=== PATIENT | female | born 1985 | race Caucasian/White ===

== ENCOUNTER → 2019-09-17 06:41 | Outpatient (CLI) | payer OTHER, SELFPAY ==
--- NOTE | 2019-09-17 06:45 | CT_ITS ---
STUDY: CT MAXILLOFACIAL SINUSES REASON FOR EXAM: Female, 33 years old. SINUSITIS X 2 MONTHS RADIATION DOSAGE (If Supplied By Facility): CTDIvol = ( 33.06 ) mGy, DLP = ( 693.36 ) mGycm TECHNIQUE: The patient was scanned in a multi detector CT scanner. High resolution axial imaging was performed without the administration of intravenous contrast material. Sagittal and coronal images were reconstructed. Individualized dose optimization techniques were used for this CT. COMPARISON: None. FINDINGS: FRONTAL SINUSES: Hypoplastic right frontal sinus, without mucosal inflammatory disease. ETHMOIDAL SINUSES: Normal aeration, without mucosal inflammatory disease. MAXILLARY SINUSES: There is mild mucosal thickening in the bilateral maxillary sinuses suggesting chronic sinusitis. SPHENOIDAL SINUSES: There is a mucosal retention cyst in the sphenoid sinus on the right side measures 1 cm in greatest diameter. There is patency of the bilateral maxillary infundibuli with normal uncinate processes, ethmoid bullae, and hiatus semilunaris. Normal bilateral middle turbinates. Normal bilateral inferior turbinates. Normal midline nasal septum. There is patency of the bilateral nasal airways. The visualized osseous structures are normal. The visualized bilateral orbital contents are normal. CT/Sinus/Facial Bone IMPRESSION: There is mild mucosal thickening in the bilateral maxillary sinuses suggesting chronic sinusitis. There is a mucosal retention cyst in the sphenoid sinus on the right side measures 1 cm in greatest diameter. Electronically Signed: Carlos Paulino, at 8:23 EST Tel , Service support ,
== END ==
PROVIDERS: Family Provider Internal Medicine; PCP Internal Medicine; Referring Provider Otolaryngology; Visit Provider Otolaryngology
DX: J32.9 Chronic sinusitis, unspecified (principal)
CPT/HCPCS: 70486

== ENCOUNTER → 2020-07-22 07:06 | Outpatient (CLI) | payer OTHER, SELFPAY ==
--- NOTE | 2020-07-22 07:07 | BI_ITS ---
MAMMOGRAPHY - BILATERAL SCREENING REASON FOR EXAM: Female, 34 years old. Routine annual screening examination. PERTINENT HISTORY: Mother with breast cancer. Grandmother with breast cancer. TECHNIQUE: Digital bilateral breast cristhian (3D mammographic acquisition) in the CC and MLO projections. 2-D mediolateral oblique (MLO) and craniocaudad (CC) views of both breasts were obtained. CAD: Full Field Digital Mammography with Computer Added Detection was performed. COMPARISON: None. Baseline examination. FINDINGS: Breast Composition: There are scattered areas of fibroglandular density. There are no dominant masses or suspicious calcifications. There is an 8 mm x 7.4 mm well-defined nodule in the deep central medial aspect of the left breast. Correlation with ultrasound is recommended. No other significant abnormalities are identified. BI/SCREEN MAMM (CAD) W/CRISTHIAN BILAT IMPRESSION: 8 mm x 7.4 mm well-defined nodule in the deep central medial aspect of the left breast. Correlation with ultrasound is recommended. ASSESSMENT CATEGORY: BIRADS Category 0: Incomplete. Need additional imaging evaluation. A letter regarding these results will be sent to the patient by the facility within 30 days. Approximately 10% of breast cancers are not detected by mammography. A normal mammogram should not delay biopsy of a clinically suspicious abnormality. [id number] Electronically Signed: Rigoberto Mahan, at 10:02 EST , Service support ,
== END ==
PROVIDERS: PCP Internal Medicine; Referring Provider Internal Medicine; Visit Provider Internal Medicine
DX: Z12.31 Encounter for screening mammogram for malignant neoplasm of breast (principal); N63.25 Unspecified lump in the left breast, overlapping quadrants; Z80.3 Family history of malignant neoplasm of breast
CPT/HCPCS: 77063; 77067

== ENCOUNTER → 2020-07-28 08:13 | Outpatient (CLI) | payer OTHER, SELFPAY ==
--- NOTE | 2020-07-28 08:15 | US_ITS ---
STUDY: ULTRASOUND BREAST - LEFT REASON FOR EXAM: Female, 34 years old. TECHNIQUE: Axial and longitudinal images of the LEFT breast were performed with a high resolution ultrasound transducer. # OF IMAGES: 61 COMPARISON: Previous mammogram obtained on 07/22/2020 FINDINGS: LEFT Breast: There is a lesion in the inferior medial quadrant. The lesion measures 0.4 x 0.2 cm in size. Clock notation: 6 o''clock position. Distance from nipple: 3 cm. Posterior Enhancement: Yes Posterior Shadowing: Yes Margins: Smooth Echogenicity: Hypoechoic US/Breast Limited Unilateral IMPRESSION: This nodular density appears to represent an intramammary lymph node. ASSESSMENT CATEGORY: BIRADS Category 2: Benign. A letter regarding these results will be sent to the patient by the facility within 30 days. Electronically Signed: Scott Richardson, at 9:18 EST Tel , Service support ,
== END ==
PROVIDERS: PCP Internal Medicine; Referring Provider Internal Medicine; Visit Provider Internal Medicine
DX: R92.2 Inconclusive mammogram (principal)
CPT/HCPCS: 76642

== ENCOUNTER → 2021-06-30 09:29 | Outpatient (CLI) | payer OTHER, SELFPAY ==
[2021-07-07 15:29] LABS: HPV APTIMA, High Risk Positive (Negative)
== END ==
PROVIDERS: PCP Internal Medicine; Visit Provider Student in an Organized Health Care Education/Training Program
DX: Z12.4 Encounter for screening for malignant neoplasm of cervix (principal)
CPT/HCPCS: 87624; 88175; G0145

== ENCOUNTER → 2021-07-25 | Outpatient (CLI) | payer OTHER, SELFPAY ==
--- NOTE | 2021-07-25 | CER_PTH ---
PATIENT: POLLO DAIGLE LOC: [facility]#:[id number] AGE/SX: 35/F ROOM: RE07/25/[address]: Dr. Radha Howe DO : 1985 BED: DIS: 07/25/2021 SPEC #: [id number] RECD: 07/25/21 17:30 STATUS: ERIC RETati #: [id number] LINDA: 07/25/21 00:[address]: Radha Howe DEPT: SURGICAL PATHOLOGY RECD BY: Curtis Andino ENTERED: 07/26/21 09:23 SP TYPE: CERV OTHR DR: Dr. Cleo Joseph, Tissues: A - Uterine cervix, NOS B - Endocervical Procedures: Surgery Specimen Level IV HEADER OPERATION: Colposcopy PRE-OP DIAGNOSIS: ASCUS, HPV positive TISSUE SUBMITTED: A ? Cervical biopsy 11 o?clock, B - ECC MICROSCOPIC DIAGNOSIS A. Cervix at 11 o?clock, biopsy: Focal minimal changes consistent with HPV cytopathic effects. Moderate acute and chronic inflammation. See comment, B. ECC: Fragments of endocervical mucosa with acute and chronic inflammation, blood and mucous. Negative for dysplasia. SJ 07/27/21 COMMENT Immunohistochemistry ([id number]) for surrogate HPV marker (p16) supports the above diagnosis. Case has been reviewed in consultation with Dr. Soto who concurs with the above diagnosis. IDC:AM MICROSCOPIC DESCRIPTION Slides are reviewed. GROSS DESCRIPTION A - Received in fixative is one container labeled with the patient's name and designated cervical biopsy 11 o'clock. The specimen consists of multiple irregular fragments of light pak soft tissue that in aggregate measure 0.6 x 0.2 x 0.1 cm. The specimen is totally submitted in one cassette. B - Received in fixative is one container labeled with the patient's name and designated ECC. The specimen consists of multiple irregular fragments of pak mucoid tissue that in aggregate measure 2.5 x 2 x 0.2 cm. The specimen is totally submitted in one cassette. / RULA:adrian 07/26/2021 TC:5 CPT: 13248 x2
--- NOTE | 2021-07-25 | IMM_PTH ---
PATIENT: POLLO DAIGLE LOC: [facility] U#:[id number] AGE/SX: 35/F ROOM: RE07/25/[address]: Dr. Radha oHwe DO : 1985 BED: DIS: 07/25/2021 SPEC #: [id number] RECD: 07/27/21 12:40 STATUS: ERIC REQ #: [id number] LINDA: 07/25/21 00:[address]: Radha Howe DEPT: IMMUNOHISTOCHEMISTRY RECD BY: Valente Eastman ENTERED: 07/27/21 12:41 SP TYPE: IMMUNO OTHR DR: Dr. Cleo Joseph, Tissues: Uterine cervix, NOS Procedures: p16 (initial) KI-67 (add) PHYSICIAN & INSTITUTION [place] [id number] SPECIMEN INFORMATION: Tissue Source: Cervical biopsy Clinical Info: ASCUS, HPV positive Specimen Number: [id number] CPT code: 69944, 96995 x1 METHODOLOGY: Deparaffinized sections of prefer/formalin-fixed tissue or PAP/DQ stained slides are incubated with monoclonal/polyclonal antibodies/oligonucleotide probes. Localization is made via biotin free immunoperoxidase method. Appropriate controls are performed and reacted as expected. Results on target cell population are indicated in the following table: RESULTS: ANTIBODY / CLONE RESULT P16 (E6H4) positive, focal and patchy Ki-67 (30-9) positive, low These tests were developed and their performance characteristics determined by [facility]. They may not have been cleared or approved by the U.S. Food and Drug Administration. The FDA has determined that such clearance or approval is not necessary. The above immunohistochemical/dualISH markers are ordered and reviewed by the Pathologist. INTERPRETATION: Cervix, 11 o?clock, biopsy: Focal changes consistent with HPV cytopathic effects. SJ:lourdes 07/29/21
== END | disposition home or self-care (01) ==
LOC: LABSPEC 16:49
PROVIDERS: PCP Internal Medicine; Visit Provider Student in an Organized Health Care Education/Training Program
DX: R87.610 Atypical squamous cells of undetermined significance on cytologic smear of cervix (ASC-US) (principal)
CPT/HCPCS: 88305; 88341; 88342

== ENCOUNTER → 2022-07-05 | Outpatient (CLI) | payer OTHER, SELFPAY ==
[2022-07-11 16:28] LABS: HPV APTIMA, High Risk Negative (Negative)
== END | disposition home or self-care (01) ==
LOC: LABSPEC 10:20
PROVIDERS: PCP Internal Medicine; Visit Provider Student in an Organized Health Care Education/Training Program
DX: Z12.4 Encounter for screening for malignant neoplasm of cervix (principal)
CPT/HCPCS: 87624; 88175; G0145

== ENCOUNTER → 2023-02-07 | Outpatient (CLI) | payer OTHER, SELFPAY ==
--- NOTE | 2023-02-07 07:21 | BI_ITS ---
MAMMOGRAPHY - BILATERAL SCREENING REASON FOR EXAM: Female, 37 years old. Routine annual screening examination. PERTINENT HISTORY: Mother with breast cancer. Grandmother with breast cancer. TECHNIQUE: Digital bilateral breast cristhian (3D mammographic acquisition) in the CC and MLO projections. 2-D mediolateral oblique (MLO) and craniocaudad (CC) views of both breasts were obtained. CAD: Full Field Digital Mammography with Computer Added Detection was performed. COMPARISON: Comparison is made with prior study July 22, 2020. FINDINGS: Breast Composition: There are scattered areas of fibroglandular density. There are no dominant masses or suspicious calcifications. Since prior study, there has been a decrease in size of the well-defined nodule in the deep central medial aspect of the left breast. It presently measures 6.5 mm x 4.4 mm. No other significant abnormalities are identified. There has been no significant change since the prior study. BI/SCRN MAMM (CAD)W/CRISTHIAN BILAT IMPRESSION: Stable bilateral screening mammogram. Yearly follow-up mammogram recommended. (A) ASSESSMENT CATEGORY: BIRADS Category 2: Benign. A letter regarding these results will be sent to the patient by the facility within 30 days. Approximately 10% of breast cancers are not detected by mammography. A normal mammogram should not delay biopsy of a clinically suspicious abnormality. [id number] Electronically Signed: Rigoberto Mahan MD at 9:18 EDT ,
== END | disposition home or self-care (01) ==
LOC: OPBI 07:18
PROVIDERS: PCP Internal Medicine; Referring Provider Internal Medicine; Visit Provider Internal Medicine
DX: Z12.31 Encounter for screening mammogram for malignant neoplasm of breast (principal); Z80.3 Family history of malignant neoplasm of breast
CPT/HCPCS: 77063; 77067

== ENCOUNTER → 2024-11-05 | Outpatient (CLI) | payer OTHER, SELFPAY ==
--- NOTE | 2024-11-05 07:31 | US_ITS ---
PROCEDURE: ABD LIMITED W/ ELASTOGRAPHY REASON FOR EXAM: Abnormal liver enzymes. COMPARISON: None. TECHNIQUE: Right upper quadrant abdominal ultrasound. Syed ElastQ Imaging shear wave elastography for non-invasive assessment of liver tissue stiffness. Syed EPIQ Elite. FINDINGS: LIVER: Size: Unremarkable Length: 15.9 cm Echotexture: Diffusely echogenic suggesting fatty infiltration Contour: Normal Lesions: Multiple hypoechoic solid nodules are seen throughout. The largest measures 4.7 cm 4.1 cm 3.5 cm. Metastatic disease should be ruled out. Elastography: EQI Med: 8.4 kPa EQI Med Anthony: 1.66 m/s IQR/Med: 8.2 %* GALLBLADDER: Normal COMMON BILE DUCT: Normal it measures 4 mm. PANCREAS: Normal Visualized portions of the right kidney are unremarkable. No right upper quadrant ascites. US/ABD Limited w/ Elastography IMPRESSION: MODERATE TO SEVERE HEPATIC FIBROSIS Multiple hypoechoic nodules scattered throughout the liver as described. Metas tatic disease should be ruled out. Fatty infiltration of the liver. Reference Values: SRU <1.37 m/s (5.7kPa): No to mild fibrosis 1.37 m/s - 2.2 m/s: Moderate to severe fibrosis >2.2 m/s (15kPa): Significant fibrosis / cirrhosis METAVIR Score F2 or higher: 1.34 m/s (5.7kPa) F3 or higher: 1.55 m/s (7.3kPa) F4: 1.80 m/s (10kPa) * If the IQR/Med is >30%, the variance in the measurements is a large and the a ccuracy of the measurement may be in question. Reading Location: [id number]
== END | disposition home or self-care (01) ==
LOC: US 07:28
PROVIDERS: PCP Internal Medicine; Referring Provider Internal Medicine; Visit Provider Internal Medicine
DX: R94.5 Abnormal results of liver function studies (principal)
CPT/HCPCS: 76705; 76981

== ENCOUNTER 2024-11-15 14:23 | Emergency (ER) | payer OTHER, SELFPAY ==
[2024-11-15 14:23] VITALS: BP 148/97; PULSE 105; RESP 20; TEMP 36.1; O2SAT 99; BMI 39.8
--- NOTE | 2024-11-15 14:39 | CT_ITS ---
PROCEDURE: CT abdomen pelvis with IV contrast REASON FOR EXAM: Right-sided abdominal pain TECHNIQUE: Multiple contiguous axial images of the abdomen and pelvis were obtained after the administration of intravenous contrast. Two-dimensional coronal and sagittal reformatted images were reconstructed. Low-dose imaging technique was utilized. COMPARISON: None FINDINGS: Lung bases are clear. Hepatic steatosis. 4 cm partially enhancing lobular lesion along the peripheral left hepatic lobe. Two additional subtle enhancing lesions in the right hepatic lobe, largest measuring 3 cm. Spleen, pancreas and adrenal glands are intact. Gallbladder is satisfactory. No significant biliary ductal dilation. Kidneys enhance symmetrically. No suspicious renal mass, calculi or hydronephrosis. Urinary bladder is intact. Uterus is present. No bowel obstruction, focal bowel wall thickening or significant perienteric inflammation. Normal appendix. No pelvic free fluid. No free air. No abdominal aortic aneurysm or suspicious adenopathy. Superficial soft tissues are intact. No acute osseous abnormality. CT/Abdomen/Pelvis W IV Cont ONLY IMPRESSION: 1. No acute process. 2. Incompletely characterized enhancing lesions in the right and left hepatic l obes. Recommend further evaluation with nonemergent contrast-enhanced MRI. Reading Location: [facility]
--- NOTE | 2024-11-15 14:40 | EX.ED.DYSGE1 ---
HPI <MARIA E Ford - Last Filed: 11/15/24 16:24> History of Present Illness Chief Complaint: Abd Pain Narrative Narrative: 38-year-old female with PMH of prediabetes/diabetes presents with right sided abdominal pain x 1 week. The abdominal pain was intermittent but became constant over the last 4 days and she feels bloated. It is mainly in the right upper and mid abdomen. She has nausea with eating and drinking but no vomiting. She has chronic constipation. She states she is prediabetic but was just told her sugars were elevated to the threshold of diabetes and started Ozempic shots 3 weeks ago and thinks this worsened her constipation. She is having small pebble-like bowel movements every other day. She is passing gas. She has no history of abdominal surgery or bowel obstruction. She tried a probiotic and 2 doses of MiraLAX without improvement. She denies frequent alcohol use or smoking. She states recently her liver enzymes showed a high ALT so she had a right upper quadrant ultrasound with a normal gallbladder but liver nodules with her supposed to be further evaluated by a PET scan next week. PFSH <MARIA E Ford - Last Filed: 11/15/24 16:24> PFSH Medical History (Updated 11/15/24 @ 15:29 by MARIA E Ford) Impingement of right shoulder Right shoulder pain Home Medications ?Medication ?Instructions ?Recorded ?Last Taken ?Type norethindrone 1 mg-ethinyl 1 tab PO QDAY 02/28/24 Unknown History estradiol 10 mcg (24)-iron 10 mcg(2) tablet (Lo Loestrin Fe) Allergy/AdvReac Type Severity Reaction Status Date / Time No Known Allergies Allergy Verified 11/15/24 14:23 Family History (Updated 02/28/24 @ 11:09 by Jessica Collins) Mother Cancer Grandmother Cancer Social History (Updated 02/28/24 @ 11:13 by Jessica Collins) Smoking Status: Never smoker alcohol intake: current alcohol intake frequency: a few times a week what type of physical activity do you participate in: other details: lyudmila ROS <MARIA E Ford - Last Filed: 11/15/24 16:24> ROS ED ROS Narrative Constitutional: Negative for fever, chills, malaise. CVS: Negative for chest pain. Respiratory: Negative for shortness of breath. GI: Positive for abdominal pain, nausea, constipation. Negative for vomiting, diarrhea, melena, hematochezia. : Negative for dysuria, hematuria or frequency. EXAM <MARIA E Ford - Last Filed: 11/15/24 16:24> Physical Exam Narrative Exam Narrative: CONST: Patient sitting in no acute distress. EYES: Normal inspection. NECK: Normal inspection. RESP: No respiratory distress, CTAB. CVS: Regular rate and rhythm, no murmur, no gallop. ABD: Soft with mild tenderness right mid and upper abdomen, no guarding or rebound, nondistended. Negative Cheney sign. Back: Normal inspection, no CVA tenderness. SKIN: Color normal, no rash, warm, dry, intact. EXTREMITIES: Normal appearance, no pedal edema. NEURO: Alert and answering questions appropriately. PSYCH: Normal affect. Const Vital Signs: 11/15/24 14:23 Temperature 97 F L Temperature Source Temporal Pulse Rate 105 H Respiratory Rate 20 H Blood Pressure 148/97 H Blood Pressure Mean 114 Pulse Ox 99 Oxygen Delivery Method Room Air <Godwin Dozier MD - Last Filed: 11/15/24 17:00> Physical Exam Const Vital Signs: 11/15/24 14:23 Temperature 97 F L Temperature Source Temporal Pulse Rate 105 H Respiratory Rate 20 H Blood Pressure 148/97 H Blood Pressure Mean 114 Pulse Ox 99 Oxygen Delivery Method Room Air MDM <MARIA E Ford - Last Filed: 11/15/24 16:24> [facility] Narrative Medical decision making narrative: Differential includes but not limited to GERD/PUD, gallbladder etiology, pancreatitis, constipation, obstruction, medication induced gastroparesis 38-year-old female presents with nausea, right sided abdominal pain, and acute on chronic constipation x 1 week. She appears well and nontoxic. HR is 105 with otherwise stable vital signs. Normal cardiopulmonary exam. Abdomen is soft right upper and mid abdominal tenderness. No peritoneal signs. Bowel sounds x 4 present. CBC, CMP, lipase are all unremarkable. Serum negative. Urinalysis negative for infection. CT scan shows the known liver lesions with no other acute findings. She already has a PET scan scheduled to further evaluate the liver lesions. 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 She declined any pain or antiemetic treatment here or for home. She states she will stop taking the Ozempic and discuss with her primary care provider. Return precautions were discussed and she was discharged in stable condition. External records reviewed: 11/05/2024 RUQ ultrasound Multiple liver nodules scattered throughout. Metastatic disease should be ruled out. Fatty liver. Normal gallbladder. Lab Data Attestation: I reviewed the patient's lab results. Labs: Laboratory Results - last 24 hr 11/15/24 11/15/24 14:44 15:31 WBC 8.5 RBC 4.75 Hgb 14.5 Hct 44.5 MCV 93.7 MCH 30.5 MCHC 32.6 RDW Std Deviation 44.3 H RDW Coeff of Ricardo 12.9 Plt Count 268 MPV 10.1 Immature Gran % (Auto) 0.400 Neut % (Auto) 61.0 Lymph % (Auto) 30.0 [place] % (Auto) 7.8 Eos % (Auto) 0.4 Baso % (Auto) 0.4 Absolute Neuts (auto) 5.2 Absolute Lymphs (auto) 2.54 Nucleated RBC % 0 Sodium 139 Potassium 3.8 Chloride 103 Carbon Dioxide 23.8 Anion Gap 12 BUN 13 Creatinine 0.90 Estim Creat Clear Calc 121.22 Est GFR (MDRD) Non-Af 83 BUN/Creatinine Ratio 14.0 Glucose 102 H Calcium 9.3 Total Bilirubin 0.39 AST 21 ALT 32 Alkaline Phosphatase 90 Total Protein 7.4 Albumin 4.2 Globulin 3.2 Albumin/Globulin Ratio 1.3 Lipase 28 Serum , Qual NEGATIVE Urine Color Straw Urine Clarity Clear Urine pH 7.0 Ur Specific [place] 1.005 Urine Protein 15 H Urine Glucose (UA) Normal Urine Ketones Negative Urine Occult Blood Negative Urine Nitrite Negative Urine Bilirubin Negative Urine Urobilinogen Normal Ur Leukocyte Esterase Negative Urine RBC 0 SEEN Urine WBC 0 SEEN Ur Squamous Epith Cells 0 SEEN Urine Bacteria 0 SEEN Urine Mucus 0 SEEN Radiography Diagnostic Testing: Clinical Impression(s) from Imaging Studies Abdomen/Pelvis CT 11/15/24 14:39 IMPRESSION: 1. No acute process. 2. Incompletely characterized enhancing lesions in the right and left hepatic lobes. Recommend further evaluation with nonemergent contrast-enhanced MRI. Reading Location: [facility] <Godwin Dozier MD - Last Filed: 11/15/24 17:00> MDM Lab Data Labs: Laboratory Results - last 24 hr 11/15/24 11/15/24 14:44 15:31 WBC 8.5 RBC 4.75 Hgb 14.5 Hct 44.5 MCV 93.7 MCH 30.5 MCHC 32.6 RDW Std Deviation 44.3 H RDW Coeff of Ricardo 12.9 Plt Count 268 MPV 10.1 Immature Gran % (Auto) 0.400 Neut % (Auto) 61.0 Lymph % (Auto) 30.0 [place] % (Auto) 7.8 Eos % (Auto) 0.4 Baso % (Auto) 0.4 Absolute Neuts (auto) 5.2 Absolute Lymphs (auto) 2.54 Nucleated RBC % 0 Sodium 139 Potassium 3.8 Chloride 103 Carbon Dioxide 23.8 Anion Gap 12 BUN 13 Creatinine 0.90 Estim Creat Clear Calc 121.22 Est GFR (MDRD) Non-Af 83 BUN/Creatinine Ratio 14.0 Glucose 102 H Calcium 9.3 Total Bilirubin 0.39 AST 21 ALT 32 Alkaline Phosphatase 90 Total Protein 7.4 Albumin 4.2 Globulin 3.2 Albumin/Globulin Ratio 1.3 Lipase 28 Serum , Qual NEGATIVE Urine Color Straw Urine Clarity Clear Urine pH 7.0 Ur Specific [place] 1.005 Urine Protein 15 H Urine Glucose (UA) Normal Urine Ketones Negative Urine Occult Blood Negative Urine Nitrite Negative Urine Bilirubin Negative Urine Urobilinogen Normal Ur Leukocyte Esterase Negative Urine RBC 0 SEEN Urine WBC 0 SEEN Ur Squamous Epith Cells 0 SEEN Urine Bacteria 0 SEEN Urine Mucus 0 SEEN Radiography Diagnostic Testing: Clinical Impression(s) from Imaging Studies Abdomen/Pelvis CT 11/15/24 14:39 IMPRESSION: 1. No acute process. 2. Incompletely characterized enhancing lesions in the right and left hepatic lobes. Recommend further evaluation with nonemergent contrast-enhanced MRI. Reading Location: [facility] Treatment and Re-Evaluation :: Dr. Dozier: I have personally performed a face to face assessment of the patient and have reviewed the JOSEPH Note. I performed a substantive portion of the visit including all aspects of the following. My chandler findings include: History is started Ozempic for diabetes. Now with abdominal bloating, lack of bowel movement, abdominal pain. Exam is afebrile. Vital signs noted. Nontoxic-appearing. Cardiovascular examination reveals mild tachycardia. Lungs clear to auscultation bilaterally. Abdomen is soft with minimal diffuse tenderness to palpation without guarding or rebound. Positive bowel sounds. Neurological examination nonfocal nonlateralizing. Medical Decision Making: Check labs. Check CT. Laboratory work grossly unremarkable. Urinalysis without infection. Review of radiology report of CT head and abdomen and pelvis shows no evidence of an obstruction or inflammatory process, no acute process. I feel she may be having more gastroparesis type symptoms from her use of semaglutide. I feel she can be discharged safely home with follow-up to her primary care provider. Disposition is discharged home in stable condition. Other additions or changes: [None] Discharge Plan Triage Chief Complaint: Abd Pain ED Midlevel Provider: Sadie Sanders ED Provider: Godwin Dozier Dx/Rx/DC Orders Clinical Impression: Abdominal pain, Constipation, Drug side effects Instructions: Abdominal Pain, ED Constipation (Adult) Prescriptions: No Action Lo Loestrin Fe 1 mg-10 mcg (24)/10 mcg (2) tablet 1 tab PO QDAY Primary Care Provider: Cleo Joseph Referrals: Cleo Joseph, [Primary Care Provider] - Activity Restrictions/Additional Instructions: Your labs and CT scan are normal other than the abnormal liver spots which will be further evaluated next week by your PET scan. I suspect that your pain and bloating is from Ozempic causing nausea and worsening constipation. I would discuss your symptoms with your prescriber. In the meantime you can take 1-2 caps of MiraLAX daily and increase fiber in your diet Print Language: Uruguayan Disposition Disposition: Home, Self Care
[2024-11-15 14:55] LABS: Absolute Lymphocyte Count 2.54 X10^3/uL (0.83-4.51); Absolute Neutrophil Count 5.2 X10^3/uL (2.0-7.7); Basophil# 0.03 X10^3/uL; Basophil% 0.4 % (0-1); Eosinophil# 0.03 X10^3/uL; Eosinophils% 0.4 % (0-5); Hematocrit 44.5 % (37-47); Hemoglobin 14.5 g/dL (12.0-15.0); Lymphocyte # 2.54 X10^3/ul (0.83-4.51); Mean Corp Hgb Conc 32.6 g/dL (32-36); Mean Corpuscular Hgb 30.5 pg (27.0-32.0); Mean Corpuscular Volume 93.7 fL (81-99); Mean Platelet Vol. 10.1 fl (6.2-12.0); Monocyte# 0.66 X10^3/uL; Monocyte% 7.8 % (0-10); NRBC Flagged by Analyzer 0 % (0-5); Neutrophil # 5.17 X10^3/uL (2.7-7.7); Platelet Count 268 K/mm3 (150-450); RBC Distribution Width CV 12.9 % (11.6-14.6); RBC Distribution Width SD 44.3 fl (35.1-43.9); Red Blood Count 4.75 M/mm3 (4.2-5.4); White Blood Count 8.5 K/mm3 (4.4-11.0)
[2024-11-15 15:16] LABS: ALB/GLOB Ratio 1.3 RATIO (0.9-2.4); AST(SGOT) 21 U/L (<=31); Alanine Aminotransfer ALT/SGPT 32 U/L (<=34); Albumin, Serum 4.2 g/dL (3.5-5.0); Alkaline Phosphatase 90 U/L (35-104); Anion Gap 12 (5-15); BUN 13 mg/dL (4-19); Calcium,Total 9.3 mg/dL (7.6-11.0); Carbon Dioxide 23.8 mmol/L (21.0-32.0); Chloride 103 mmol/L (98-108); EST Glomerular Filtration Rate 83 (>60); Estimated Creatinine Clearance 121.22 ml/min (50-250); Globulin 3.2 g/dL (2.2-4.2); Glucose 102 mg/dL (70-99); Lipase 28 U/L (13-75); Potassium 3.8 mmol/L (3.3-5.1); Protein, Total 7.4 g/dL (5.9-8.4); Sodium Level 139 mmol/L (133-145); Total Bilirubin 0.39 mg/dL (0.00-1.30)
[2024-11-15 15:28] LABS: Internal QC Validated? YES +Cl - CLEAR BKGD; Pregnancy, Serum, hCG Quali. NEGATIVE Negative
[2024-11-15 15:39] LABS: Bacteria 0 SEEN /hpf (None Seen); Mucous, Urine 0 SEEN /hpf (<or=2+); Squamous Epithelial Cells - UA 0 SEEN /hpf (5-10); White Blood Cells 0 SEEN /hpf (0-5)
[2024-11-15 15:46] LABS: Color, Urine Straw (Yellow); Glucose, Dipstick Normal (Normal); Ketone-Dipstick Negative (Negative); Leukocyte Esterase-Dipstick Negative /ul (Negative); Nitrite-Dipstick Negative (Negative); Occult Blood-Urine Negative /ul (Negative); Protein-Dipstick 15 mg/dl (Negative); Specific Gravity, Urine 1.005 (1.002-1.030); Urine Bilirubin Dipstick Negative (Negative); Urine Clarity Clear (Clear); Urine Urobilinogen Normal (Normal)
[2024-11-15 16:11] LABS: Red Blood Cells-Urine 0 SEEN /hpf (0-5)
[2024-11-15 16:58] VITALS: BP 138/78; PULSE 78; RESP 16; TEMP 36.6; O2SAT 99
== END 2024-11-15 16:58 | disposition home or self-care (01) ==
PROVIDERS: Physician Assistant; Emergency Provider Emergency Medicine; PCP Internal Medicine; Referring Provider Emergency Medicine; Visit Provider Emergency Medicine
DX: K59.09 Other constipation (principal); E11.9 Type 2 diabetes mellitus without complications; T50.995A Adverse effect of other drugs, medicaments and biological substances, initial encounter; K76.9 Liver disease, unspecified; Z79.85 Long-term (current) use of injectable non-insulin antidiabetic drugs
CPT/HCPCS: 74177; 80053; 81001; 83690; 84703; 85025; 99282; Q9967; A4216

== ENCOUNTER 2024-11-18 09:28 | Outpatient (CLI) | payer OTHER, SELFPAY ==
--- NOTE | 2024-11-18 09:30 | PET_ITS ---
EXAM: PET/CT TUMOR BASE -THIGH INIT CLINICAL HISTORY: Multiple hepatic nodules noted on right upper quadrant abdominal ultrasound of 11/05/2024. COMPARISON: Right upper quadrant abdominal ultrasound of 11/05/2024 TECHNIQUE: Whole-body F-18 FDG PET-CT. Dose: 13.184 mCi F-18 FDG intravenous. FINDINGS: Head and neck: No focus of abnormal hypermetabolic activity is seen. Chest: No focus of abnormal hypermetabolic activity is seen. Abdomen and pelvis: No focus of abnormal hypermetabolic activity seen, including within the reportedly concerning liver. Bones: No focus of abnormal hypermetabolic activity is seen. Additional: None. PET/PET/CT Tumor Base -Thigh Init IMPRESSION: No focus of abnormal hypermetabolic activity is seen to suggest the presence of malignancy. Reading Location: [address]
== END 2024-11-18 23:59 | disposition home or self-care (01) ==
LOC: ONC 09:30
PROVIDERS: PCP Internal Medicine; Referring Provider Internal Medicine; Visit Provider Internal Medicine
DX: R93.2 Abnormal findings on diagnostic imaging of liver and biliary tract (principal)
CPT/HCPCS: 78815; A9552

== ENCOUNTER → 2025-01-01 | Outpatient (CLI) | payer OTHER, SELFPAY ==
--- NOTE | 2025-01-01 08:00 | CT_ITS ---
PROCEDURE: CT ABD/PELVIS W/WO CONTRAST 01/01/2025 REASON FOR EXAM: MULTIPLE LIVER NODULES REPORTED IN CT TECHNIQUE: Arterial, noncontrast and delayed phase imaging of the abdomen were obtained. Additional venous phase abdomen and pelvis imaging was obtained. Coronal and Sagittal reconstruction series were provided. PATIENT PREPARATION: Per protocol ORAL CONTRAST TYPE: None. CONTRAST: [id number] VOLUME: 100 ML One or more dose reduction techniques were used (e.g., Automated exposure control, adjustment of the mA and/or kV according to patient size, use of iterative reconstruction technique. RADIATION DOSE SUMMARY: CTDlvol: 100 mGy DLP: 4000 mGycm COMPARISON: PET-CT 11/18/2024, CT abdomen pelvis 11/15/2024. FINDINGS: Lung bases: The lung bases are clear. The heart is normal in size. Liver: Unchanged mildly arterially enhancing globular lesion along the peripheral left hepatic lobe. The lesion demonstrates mild hypodensity on noncontrast imaging, with washout on venous and delayed phase imaging. Unchanged subtle arterially enhancing lesions within the right hepatic lobe, the largest within segment 8, demonstrating noncontrast and delayed phase isodensity, and near-complete washout on venous phase imaging. Mild diffuse hepatic steatosis. The major portal veins are patent. No biliary ductal dilation. Gallbladder: No radiopaque stones within the gallbladder. Spleen: Normal size. Pancreas: Unremarkable. Adrenals: No adrenal mass. Kidneys: No hydronephrosis or nephrolithiasis. Bladder: Minimally distended and unremarkable. Reproductive Organs: Normal uterine size and contour. Ovaries are unremarkable. Bowel: The bowel loops are normal in caliber. No ascites or pneumoperitoneum. Normal appendix. Lymph nodes: No suspicious lymph node enlargement. Vasculature: The abdominal aorta and IVC are normal. Bones: Minimal degenerative changes of the spine. CT/CT Abd/Pelvis W/WO Contrast IMPRESSION: 1. 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 2. Mild hepatic steatosis. Reading Location: [facility]
[2025-01-01 08:17] LABS: Absolute Lymphocyte Count 2.72 X10^3/uL (0.83-4.51); Basophil# 0.04 X10^3/uL; Basophil% 0.5 % (0-1); Eosinophil# 0.07 X10^3/uL; Eosinophils% 0.8 % (0-5); Hematocrit 43.1 % (37-47); Hemoglobin 14.1 g/dL (12.0-15.0); Lymphocyte # 2.72 X10^3/ul (0.83-4.51); Lymphocyte % 32.2 % (19-41); Mean Corp Hgb Conc 32.7 g/dL (32-36); Mean Corpuscular Hgb 30.3 pg (27.0-32.0); Mean Corpuscular Volume 92.5 fL (81-99); Mean Platelet Vol. 10.3 fl (6.2-12.0); Monocyte% 7.1 % (0-10); NRBC Flagged by Analyzer 0 % (0-5); Platelet Count 246 K/mm3 (150-450); RBC Distribution Width SD 43.9 fl (35.1-43.9); Red Blood Count 4.66 M/mm3 (4.2-5.4); White Blood Count 8.5 K/mm3 (4.4-11.0)
[2025-01-01 08:41] LABS: Hemoglobin A1c 5.7 % (<=5.6)
[2025-01-01 08:56] LABS: International Normalized Ratio 0.9; Prothrombin Time (Protime)PT. 12.3 SECONDS (11.7-14.9)
[2025-01-01 09:29] LABS: ALB/GLOB Ratio 1.2 RATIO (0.9-2.4); AST(SGOT) 20 U/L (<=31); Alanine Aminotransfer ALT/SGPT 32 U/L (<=34); Albumin, Serum 3.9 g/dL (3.5-5.0); Alkaline Phosphatase 102 U/L (35-104); Anion Gap 9 (5-15); BUN 21 mg/dL (4-19); BUN/Creat Ratio 22.4 RATIO (10-20); Calcium,Total 9.1 mg/dL (7.6-11.0); Chloride 105 mmol/L (98-108); Cholesterol 154 mg/dL (<=200); Creatinine, Serum 0.95 mg/dL (0.70-1.20); EST Glomerular Filtration Rate 78 (>60); Ferritin 82 ng/mL (22-378); Globulin 3.4 g/dL (2.2-4.2); Glucose 108 mg/dL (70-99); High Density Lipoprotein 36 mg/dL; Low Density Lipoprotein Calc. 104 mg/dL; Protein, Total 7.3 g/dL (5.9-8.4); Sodium Level 138 mmol/L (133-145); Total Bilirubin 0.19 mg/dL (0.00-1.30); Triglycerides 74 mg/dL; Very Low Density Lipoprotein 15 mg/dL (5-40); cholesterol:hdl ratio screen 4.34
[2025-01-01 16:05] LABS: CRP 8.04 mg/L (0.0-3.0); LDH 200 U/L (84-246)
[2025-01-02 15:08] LABS: AFP, Tumor Marker < 1.8 ng/mL (0.0-6.4); ANTINUCLEAR ANTIBODIES DIRECT Negative (Negative); Anti-Mitochondrial AB <20.0 Units (0.0-20.0); Anti-Smooth Muscle ABS 6 Units (0-19); Cancer Antigen 125 12.7 U/mL (0.0-38.1); Carbohydrate AG 19-9 10 U/mL (0-35); HEPATITIS B SURFACE AG Negative (Negative); Hep C Antibodies Non Reactive (Non Reactive); Hepatitis A IgM Antibody Negative (Negative); Hepatitis B Core AB IgM Negative (Negative)
== END | disposition home or self-care (01) ==
LOC: CT 07:24
PROVIDERS: PCP Internal Medicine; Referring Provider Internal Medicine; Visit Provider Internal Medicine
DX: K76.0 Fatty (change of) liver, not elsewhere classified (principal); K76.89 Other specified diseases of liver
CPT/HCPCS: 74178; 80053; 80061; 80074; 82105; 82728; 83036; 83516; 83615; 85025; 85610; 86038; 86140; 86225; 86235; 86301; 86304; Q9967

== ENCOUNTER 2025-02-20 07:11 | Day surgery (SDC) | payer OTHER, SELFPAY ==
[2025-02-20] VITALS (7 sets, daily range): BP systolic 102–121; BP diastolic 76–92; PULSE 86–95; RESP 16–18; TEMP 36.1–36.6; O2SAT 95–99; BMI 39.2
--- OUTSIDE RECORDS SUMMARY | 2025-02-20 07:15 | XMS RPT_ITS | CCD ---
Author Organization [facility] Care Team Providers Care Ehs Manager Name Role Phone UNKNOWN, PROVIDER Unavailable Unavailable Cleo Joseph Unavailable Gravius Temi Unavailable Unavailable Unavailable Unavailable Alice Ngo Unavailable Crystal Miguel Unavailable Unavailable Cleo Joseph DO Unavailable Alice Ngo Unavailable [phone] ROGERSN Crystal Unavailable Unavailable Gravius CHIEF SECURITY AND SAFETY OFFICER, Temi Unavailable Unavailable Unavailable Unavailable MARIN BALBUENA, DR LANA Moffett JR Primary Care Physician Cleo Joseph DO Unavailable Slarb GLOST KILN OPERATOR, Tara Unavailable Unavailable [facility] WORKERS COMPENSATION CLAIMS ANALYST, Susan Unavailable Alice Ngo Unavailable [place] GLOST KILN OPERATOR, Sourav Unavailable Unavailable Srini CHIEF SECURITY AND SAFETY OFFICER, Kayela Unavailable Unavailable Unavailable Primary Care Provider Unavailabl e Unavailable Primary Care Provider Unavailabl e NARINDER, LESLYE Attending Unavailable NARINDER, LESLYE Referring Unavailable Dr. Cleo Joseph DO Primary Care Provider Dr. Cleo Joseph DO Attending Provider [phone] Dr. Cleo Joseph DO Referring Provider [phone] Godwin Dozier MD Referring Provider Godwin Dozier MD Emergency Provider [phone] Godwin Dozier MD Attending Provider Emilee BALBUENA, Dr. Dillon Attending Provider Joshua BLABUENA, Dr. Montilla Attending Provider Joshua BALBUENA, Dr. Montilla Referring Provider Jake, Cleo Primary Care Unavailable Emilee, Santana Attending Unavailable Jake, Cleo Referring Unavailable Victorino Coleman Attending Unavailable Jake, Cleo Primary Care Unavailable Jake, Cleo Referring Unavailable Jake, Cleo Primary Care Unavailable Joshua, Roldan Attending Unavailable Jake, Cleo Referring Unavailable Jake, Cleo Primary Care Unavailable Joshua, Roldan Attending Unavailable Emilee, Santana Attending Unavailable Jake, Cleo Primary Care Unavailable Jake, Cleo Primary Care Unavailable Joshua, Roldan Referring Unavailable Joshua, Roldan Attending Unavailable Jake, Cleo Referring Unavailable Jake, Cleo Attending Unavailable Jake, Cleo Primary Care Unavailable Reodica, Godwin Referring Unavailable Reodica, Godwin Attending Unavailable Jake, Cleo Primary Care Unavailable Vinny Joy Attending Unavailable Jake, Cleo Primary Care Unavailable Jake, Cleo Referring Unavailable Jake, Cleo Attending Unavailable Jake, Cleo Primary Care Unavailable Medications Current Medications Medication Drug Class(es) Dates Sig (Normalized) Sig (Original) Ethinyl Estradiol / Ferrous fumarate / Norethindrone (20 sources) Estrogen Start: 07-11-2024 End: 06-12-2025 take 1 tablet by mouth once LO LOESTRIN FE 1 mg-10 mcg (24)/10 mcg (2) Take 1 tablet by mouth every afternoon. 84 tablet 3 07/11/2024 06/12/2025 Active Start: 02-28-2024 End: 12-12-2024 take 1 tablet by mouth once daily Norethindrone-E.Estradiol-Iron (Lo Loest rin Fe) 1 mg-10 mcg (24)/10 mcg (2) tablet Discontinued 1 {tbl} PO daily February 28, 2024 12:00am December 12, 2024 12:39pm Start: 02-28-2024 take 1 tablet by tanya once daily Norethindrone-E.Estradiol-Iron (Lo Loest rin Fe) 1 mg-10 mcg (24)/10 mcg (2) tablet Active 1 {tbl} PO daily February 28, 2024 12:00am Start: 07-09-2023 End: 07-11-2024 take 1 tablet by mouth once LO LOESTRIN FE 1 mg-10 mcg (24)/10 mcg ( 2) Take 1 tablet by mouth every afternoon. 84 tablet 3 07/09/2023 07/11/2024 Discontinued Start: 07-09-2023 End: 06-09-2024 take 1 tablet by mouth once LO LOESTRIN FE 1 mg-10 mcg (24)/10 mcg ( 2) Take 1 tablet by mouth every afternoon. 84 tablet 3 07/09/2023 06/09/2024 Active Start: 04-24-2023 End: 07-09-2023 take 1 tablet by mouth once LO LOESTRIN FE 1 mg-10 mcg (24)/10 mcg ( 2) Take 1 tablet by mouth every afternoon. 0 04/24/2023 07/09/2023 Discontinued Start: 09-10-2020 End: 02-27-2022 take 1 tablet by mouth once daily Lo Loestrin Fe 1 MG-10 MCG / 10 MCG Oral Tablet 1 (one) Tablet once daily for 90 days Quantity: 3 {Package} Refills: 3 Ordered: 27-Feb-2022 Tara Ramos LPN Start : 10-Sep-2020 End : 27-Feb-2022 Inactive Dispense as Written Comments: DARREN Start: 09-10-2020 take 1 tablet by tanya th once daily Lo Loestrin Fe 1 MG-10 MCG / 10 MCG Oral Tablet 1 (one) Tablet once daily for 90 days Quantity: 3 {Package} Refills: 3 Ordered: 10-Sep-2020 Cleo Joseph DO, DO, Kathleen Start : 10-Sep-2020 Active Dispense as Written Comments: DARREN Start: 06-17-2020 End: 07-17-2020 take 1 tablet by mouth once daily Lo Loestrin Fe 1 MG-10 MCG / 10 MCG Oral Tablet 1 (one) Tablet once daily for 30 days Quantity: 1 {Package} Refills: 0 Ordered: 17-Jun-2020 Cleo Joseph DO, DO, Kathleen Start : 17-Jun-2020 End : 17-Jul-2020 Inactive Start: 06-17-2020 take 1 tablet by tanya th once daily Lo Loestrin Fe 1 MG-10 MCG / 10 MCG Oral Tablet 1 (one) Tablet once daily for 30 days Quantity: 1 {Package} Refills: 0 Ordered: 17-Jun-2020 Cleo Joseph DOlinda WARD Cleo Start : 17-Jun-2020 Active Start: 05-24-2020 take 1 tablet by tanya th once daily Lo Loestrin Fe 1 MG-10 MCG / 10 MCG Oral Tablet 1 (one) Tablet once daily for 30 days Quantity: 1 {Package} Refills: 3 Ordered: 24-May-2020 Lamont Crystal STALEY Start : 24-May-2020 Active Comment on above: DARREN Take 1 tablet by tanya th every afternoon. traMADol hydrochloride 50 mg oral tablet (1 source) Opioid Agonist Start: 08-19-2021 End: 08-21-2021 Ultram 50 mg oral tablet Dose : 50 mg = 1 tab(s), PO, q6-8hr, PRN as needed for pain, X 2 day(s), # 7 tab(s), 0 Refill(s), 08/21/21 18:41:00 EST, Contusion of hand, 113.6 Start Date: 08/19/21 Stop Date: 08/21/21 Status: Ordered Completed/Discontinued Medications Medication Drug Class(es) Dates Sig (Normalized) Sig (Original) acetaminophen 325 mg / oxyCODONE hydrochloride 5 mg oral tablet (5 sources) Opioid Agonist Start: 10-01-2014 End: 02-28-2024 Oxycodone-Acetamino phen 1 TABLET tablet Discontinued 1 {tbl} PO EVERY 4 HOURS NEEDED as needed for Pain October 01, 2014 1:00am February 28, 2024 11:09am Start: 10-01-2014 take 1 tablet by tanya th every four hours as needed Oxycodone-Acetaminophen Active 1 TABLET PO EVERY 4 HOURS NEEDED October 01, 2014 12:00am amoxicillin 875 mg / clavulanate 125 mg oral tablet (9 sources) Penicillin-class Antibacterial Start: 09-14-2021 End: 02-27-2022 take 1 tablet by mouth twice daily Amoxicillin-Pot Clavulanate 875-125 MG Oral Tablet 1 (one) Tablet bid for 0 days Quantity: 20 {Tablet} Refills: 0 Ordered: 27-Feb-2022 Tara Ramos LPN Start : 14-Sep-2021 End : 27-Feb-2022 Inactive Loestrin 1.5/30 (21) 1.5-30 MG-MCG Oral Tablet (20 sources) Estrogen Start: 09-09-2020 End: 09-10-2020 take 1 tablet by mouth once daily Loestrin 1.5/30 (21) 1.5-30 MG-MCG Oral Tablet 1 Tablet daily for 90 days Quantity: 90 {Tablet} Refills: 3 Ordered: 10-Sep-2020 Lamotn ROGERSCrystal Thornton Start : 09-Sep-2020 End : 10-Sep-2020 Discontinued Comments: dr.nick espinosa Start: 09-09-2020 take 1 tablet by tanya th once daily Loestrin 1.5/30 (21) 1.5-30 MG-MCG Oral Tablet 1 Tablet daily for 90 days Quantity: 90 {Tablet} Refills: 3 Ordered: 09-Sep-2020 Jake DO, Cleo Alvarez DO Start : 09-Sep-2020 Active Comments: dr.nick espinosa Start: 09-07-2020 take 1 tablet by tanya th once daily Loestrin 1.5/30 (21) 1.5-30 MG-MCG Oral Tablet 1 Tablet daily for 30 days Quantity: 30 {Tablet} Refills: 1 Ordered: 07-Sep-2020 Jake DO, Cleo Joseph DOEmileeCleo Start : 07-Sep-2020 Active Comments: dr.nick espinosa Start: 05-17-2020 take 1 tablet by tanya th once daily Loestrin 1.5/30 (21) 1.5-30 MG-MCG Oral Tablet 1 Tablet daily for 30 days Quantity: 30 {Tablet} Refills: 1 Ordered: 17-May-2020 Jake DO, Cleo Jake DO Cleo Start : 17-May-2020 Active Comments: dr.nick espinosa Start: 05-14-2020 take 1 tablet by tanya th once daily Loestrin 1.5/30 (21) 1.5-30 MG-MCG Oral Tablet 1 Tablet daily for 30 days Quantity: 30 {Tablet} Refills: 1 Ordered: 14-May-2020 Jake DO, Cleo Jake DO Cleo Start : 14-May-2020 Active Comments: dr.nick espinosa Start: 04-22-2020 take 1 tablet by tanya th once daily Loestrin 1.5/30 (21) 1.5-30 MG-MCG Oral Tablet 1 Tablet daily for 30 days Quantity: 30 {Tablet} Refills: 1 Ordered: 22-Apr-2020 Lamont ROGERSCrystal Thornton Start : 22-Apr-2020 Active Comments: dr.nick espinosa take 1 tablet by tanya th once daily Loestrin 1.5/30 (21) 1.5-30 MG-MCG Oral Tablet 1 daily (1.5-30 MG-MCG) Active Comments: dr.nick espinosa Comment on above: dr.nick espinosa Norgestimate-Ethinyl Estradiol (5 sources) Progestin, Estrogen Start: 03-02-2014 End: 02-28-2024 Norgestimate-Ethinyl Estradiol (Sprintec 28 Day Tablet) 1 EACH tablet Discontinued 1 NMA PO DAILY March 02, 2014 12:00am February 28, 2024 11:09am Start: 03-02-2014 Norgestimate-E thinyl Estradiol (Sprintec 28 Day Tablet) 1 EACH tablet Active 1 EACH PO DAILY March 01, 2014 11:00pm indomethacin 25 mg oral capsule (5 sources) Nonsteroidal Anti-inflammatory Drug Start: 10-01-2014 End: 02-28-2024 take 2 capsules by mouth three times daily at mealtime Indomethacin 25 MG capsule Discontinued 50 mg PO 3 TIMES DAILY WITH MEALS 60 October 01, 2014 1:00am February 28, 2024 11:09am Start: 10-01-2014 take 50 mg by mouth three times daily at mealtime Indomethacin Active 50 MG PO 3 TIMES DAILY WITH MEALS 60 October 01, 2014 12:00am ondansetron 4 mg oral tablet (1 source) Serotonin-3 Receptor Antagonist Start: 01-05-2018 End: 01-10-2018 Zofran 4 mg oral tablet Dose : 4 mg = 1 tab(s), Oral, q6h, PRN Nausea/Vomiting, # 4 tab(s), 0 Refill(s) Start Date: 01/05/18 Stop Date: 01/10/18 Status: Ordered rizatriptan 10 mg oral tablet (20 sources) Serotonin-1b and Serotonin-1d Receptor Agonist Start: 09-10-2019 Maxalt 10 MG Oral Tablet 1 (one) Tablet prn for migraine x1 and repeat in 2hr if lo not gone away for 0 days Quantity: 9 {Tablet} Refills: 4 Ordered: 27-Feb-2022 Cleo Joseph DO, DO, Kathleen Start : 27-Feb-2022 Active sertraline 50 mg oral tablet (5 sources) Serotonin Reuptake Inhibitor Start: 03-02-2023 End: 03-02-2023 take 1 tablet by mouth once daily Zoloft 50 mg oral tablet 1 (one) tablet qd for 0 days Quantity: 30 {Tablet} Refills: 3 Ordered: 02-Mar-2023 Cleo Joseph DO, DO, Kathleen Start : 02-Mar-2023 End : 02-Mar-2023 Discontinued Start: 02-20-2023 take 1 tablet by tanya th once daily Zoloft 50 mg oral tablet 1 (one) tablet qd for 0 days Quantity: 30 {Tablet} Refills: 3 Ordered: 20-Feb-2023 Cleo Joseph DO, DO, Kathleen Start : 20-Feb-2023 Active Start: 01-24-2023 take 1 tablet by tanya th once daily Zoloft 50 mg oral tablet 1 (one) tablet qd for 0 days Quantity: 30 {Tablet} Refills: 3 Ordered: 24-Jan-2023 Cleo Joseph DO, DO, Kathleen Start : 24-Jan-2023 Active tamsulosin hydrochloride 0.4 mg oral capsule (6 sources) alpha-Adrenergic Jacky Start: 10-01-2014 End: 02-28-2024 take 1 capsule by mouth once daily Tamsulosin 0.4 MG capsule Discontinued 0.4 mg PO DAILY October 01, 2014 1:00am February 28, 2024 11:09am valACYclovir 1000 mg oral tablet (8 sources) Herpesvirus Nucleoside Analog DNA Polymerase Inhibitor, Herpes Simplex Virus Nucleoside Analog DNA Polymerase Inhibitor, Herpes Zoster Virus Nucleoside Analog DNA Polymerase Inhibitor Start: 12-12-2024 End: 02-13-2025 Valacyclovir 1 gram tablet Discontinued 1000 mg PO daily December 12, 2024 12:00am February 13, 2025 8:08am Start: 09-08-2024 End: 09-08-2025 take 1 tablet by mouth once daily valACYclovir (VALTREX) 1 gram tablet Take 1 tablet by mouth once daily. 90 tablet 3 09/08/2024 09/08/2025 Active Start: 05-08-2024 End: 09-08-2024 valACYclovir (VALTREX) 1 gra m tablet Take 1,000 mg by mouth once daily. 05/08/2024 09/08/2024 Discontinued Start: 05-05-2023 End: 07-08-2024 take 1 tablet by mouth once valACYclovir (VALTREX) 1 g abel Take 1 tablet by mouth every afternoon. 90 tablet 3 07/09/2023 07/08/2024 Active Comment on above: Take 1 tablet by tanya th every afternoon. Problems Active Problems Problem Classification Problem Date Documented Da te Episodic/Chronic Abdominal pain (5 sources) Abdominal pain; Translations: [Unspecified abdominal pain] Onset: 11-24-2024 11-15-2024 Episodic Anxiety disorders (16 sources) Anxiety; Translations: [Anxiety] Onset: 07-11-2024 01-24-2023 Chronic Cancer of cervix (20 sources) Atypical squamous cells of undetermined significance on cytologic smear of cervix (ASC-US); Translations: [Cervical atypism] Resolved: 02-27-2022 06-30-2020 Episodic Complications of surgical procedures or medical care (4 sources) Drug therapy finding; Translations: [Unspecified adverse effect of drug or medicament, initial encounter] 11-15-2024 Episodic Contraceptive and procreative management (1 source) Oral contraception; Translations: [Encounter for surveillance of contraceptive pills] 07-09-2023 Episodic Headache; including migraine (20 sources) Migraine; Translations: [Migraine] Onset: 07-11-2024 09-15-2019 Chronic Menopausal disorders (10 sources) Menopausal flushing; Translations: [Hot flashes (Renamed from Menopausal flushing)] 01-24-2023 Chronic Mood disorders (14 sources) Acute depression; Translations: [Depression, acute] Onset: 07-11-2024 01-24-2023 Chronic Other diseases of veins and lymphatics (20 sources) Lymphedema; Translations: [Lymphedema] Onset: 09-03-2014 07-16-2019 Chronic Comment on above: L lower leg diagnose d by prev physician 2017 L lower leg diagnose d by prev physician 2017compression / water therapy Other endocrine disorders (12 sources) Disorder of endocrine system; Translations: [Hormone imbalance (Renamed from Disorder of endocrine system)] Onset: 07-11-2024 01-24-2023 Episodic Other female genital disorders (10 sources) Cervical atypism; Translations: [Atypical squamous cells of undetermined significance on cytologic smear of cervix (ASC-US)] 09-18-2019 Episodic Other gastrointestinal disorders (4 sources) Constipation; Translations: [Constipation, unspecified] 11-15-2024 Episodic Other gastrointestinal disorders (1 source) Constipation, unspecified; Translations: [Constipation, unspecified] Onset: 02-11-2025 Episodic Other liver diseases (3 sources) Fatty (change of) liver, not elsewhere classified; Translations: [Metabolic dysfunction-associat ed steatotic liver disease (MASLD)] Onset: 01-06-2025 12-12-2024 Chronic Other liver diseases (2 sources) Nodule of liver; Translations: [Other specified diseases of liver] 12-12-2024 Chronic Other liver diseases (1 source) Other specified diseases of liver; Translations: [Other specified diseases of liver] Onset: 12-12-2024 Chronic Other liver diseases (11 sources) Decreased lipoprotein; Translations: [Low serum HDL] 02-27-2022 Episodic Comment on above: exercise Other non-traumatic joint disorders (4 sources) Disorder of shoulder; Translations: [Other specified joint disorders, right shoulder] 02-28-2024 Episodic Other nutritional; endocrine; and metabolic disorders (20 sources) Body mass index 30+ - obesity; Translations: [BMI 37.0-37.9, adult] Resolved: 01-24-2023 07-16-2019 Chronic Other nutritional; endocrine; and metabolic disorders (10 sources) Weight gain; Translations: [Unexplained weight gain] 01-24-2023 Episodic Other screening for suspected conditions (not mental disorders or infectious disease) (20 sources) Patient encounter status; Translations: [Screening for HPV (human papillomavirus) (Renamed from Encounter for screening for human papillomavirus (HPV))] Resolved: 02-27-2022 06-30-2020 Episodic Comment on above: 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 -- more routine eating bc she can not eat for 18-24 hrs at a time/ modulate stress /cortisol Other screening for suspected conditions (not mental disorders or infectious disease) (3 sources) Encounter for screening mammogram for malignant neoplasm of breast; Translations: [Abnormal findings on diagnostic imaging of liver and biliary tract] Onset: 02-21-2024 Episodic Residual codes; unclassified (20 sources) Family history of breast cancer; Translations: [Family history of breast cancer in female] Onset: 07-11-2024 06-30-2020 Episodic Comment on above: mom and grandmother Residual codes; unclassified (20 sources) Influenza vaccination declined; Translations: [Influenza vaccination declined (Renamed from Refused influenza vaccine)] Resolved: 02-26-2022 06-30-2020 Episodic Residual codes; unclassified (20 sources) Non-smoker; Translations: [Nonsmoker] Onset: 07-11-2024 06-30-2020 Episodic Residual codes; unclassified (5 sources) Uses contraception; Translations: [Uses control] 06-30-2020 Episodic Residual codes; unclassified (10 sources) Contraception ; Translations: [Uses control] 06-30-2020 Episodic Superficial injury; contusion (1 source) Contusion of hand; Translations: [Contusion of unspecified hand, initial encounter] Onset: 08-19-2021 Episodic Unclassified (1 source) Unknown / UNK(Unknown) Onset: 07-29-2018 Unclassified (20 sources) Unclassified (12 sources) Nonsmoker Unclassified (12 sources) BMI 38.0-38.9,adult Unclassified (1 source) Encounter for well adult exam with abnormal findings Unclassified (1 source) Low serum HDL Unclassified (1 source) Nutritional counseling Past or Other Problems Problem Classification Problem Date Documented Date Episodic/Chronic Coronary atherosclerosis and other heart disease (17 sources) Coronary atherosclerosis and other heart disease Other non-traumatic joint disorders (5 sources) Pain in right shoulder; Translations: [Right shoulder pain] Onset: 02-28-2024 02-28-2024 Episodic Other non-traumatic joint disorders (1 source) Other specified joint disorders, right shoulder; Translations: [Other specified joint disorders, right shoulder] Onset: 02-28-2024 Episodic Unclassified (1 source) SORE THROAT,COUGH,CONGESTI ON Onset: 07-29-2018 Unclassified (20 sources) Patient encounter status; Translations: [Wellness examination] 07-16-2019 Comment on above: done at work annuall y Unclassified (20 sources) Influenza vaccination declined; Translations: [Influenza vaccination declined (Renamed from Refused influenza vaccine)] 07-16-2019 Unclassified (20 sources) Non-smoker; Translations: [Non-smoker] 07-16-2019 Unclassified (20 sources) Pregnancies (); Translations: [Pregnancies ()] 07-16-2019 Comment on above: 0. Unclassified (20 sources) BMI 37.0-37.9, adult Unclassified (20 sources) Unspecified Diagnosis 04-22-2020 Unclassified (20 sources) Uses control; Translations: [Uses contraception] 05-24-2020 Unclassified (11 sources) Family history of breast cancer in female Unclassified (11 sources) Encounter for screening mammogram for breast cancer (Renamed from Encounter for screening mammogram for malignant neoplasm of breast) Unclassified (11 sources) Encounter for gynecological examination without abnormal finding Unclassified (11 sources) Screening for HPV (human papillomavirus) (Renamed from Encounter for screening for human papillomavirus (HPV)) Unclassified (6 sources) Encounter for screening for lipid disorder (Renamed from Screening for hyperlipidemia) Results Test Name Value Interpretation Reference Range Facility Gastroenterology Visit Repor carrier clinic 02-13-2025 Gastroenterology Visit Report [facility] [address] [place] [address] OFFICE VISIT Date of Service: 02/13/25 MR#: [id number] Acct: [id number] Name: POLLO CARRENO Rep #: [id number] : 1985 Provider: Dr. Roldan chang MD Age/Sex: 39/F Location: [id number] Status: Signed Intake Vital Signs 11/20/24 10:03 02/13/25 08:03 Height 5 ft 10 in 5 ft 10 in Weight: 283 lb 2 oz 282 lb BMI 40.6 40.4 BP 131/84 H 133/83 H Blood Pressure Location Rt brachial Position Sitting Pulse 90 88 Pulse Oximetry (%) 98 96 Oxygen Delivery Method room air Intake Visit Reasons: 2 M FU Allergies No Known Allergies Allergy (Verified 02/13/25 08:03) PFSH Medical History Impingement of right shoulder Right shoulder pain Family History Mother Cancer Grandmother Cancer Social History Smoking Status: Never smoker alcohol intake: current alcohol intake frequency: a few times a week what type of physical activity do you participate in: other details: bowling [facility] HPI Details: POLLO CARRENO, is a 39 F who presents to the office today for follow up. PMH of prediabetes/diabetes presents with right sided abdominal pain x 1 week. The abdominal pain was intermittent but became constant over the last 4 days and she feels bloated. It is mainly in the right upper and mid abdomen. She has nausea with eating and drinking but no vomiting. She has chronic constipation. She states she is prediabetic but was just told her sugars were elevated to the threshold of diabetes and started Ozempic shots 3 weeks ago and thinks this worsened her constipation. She is having small pebble-like bowel movements every other day. She is passing gas. She has no history of abdominal surgery or bowel obstruction. She tried a probiotic and 2 doses of MiraLAX without improvement. She denies frequent alcohol use or smoking. She states recently her liver enzymes showed a high ALT so she had a right upper quadrant ultrasound with a normal gallbladder but liver nodules with her supposed to be further evaluated by a PET scan next week. OV 12/12/24 Pt here to f/u from ER 11/2024. Pt reports constipation, R side abdominal pain, gas and bloating. Pt reports a formed bm daily. Denies bloody stools, n/v/d. Pt reports no prior hx of colonoscopy or EGD. Reports she still has gallbladder. Reports she is no longer taking Ozempic and that seems to help with her constipation. Takes valacyclovir daily. Patient was drinking alcohol occasionally about twice a month liquor but she quit after she was found liver nodules, 2 months ago 11/20/24- XR Abd for constipation. -Moderate constipation 11/15/24-Abd/Pelvis CT -Hepatic steatosis. 4 cm partially enhancing lobular lesion along the peripheral left hepatic lobe. Two additional subtle enhancing lesions in the right hepatic lobe, largest measuring 3 cm. Spleen, pancreas and adrenal glands are intact. Gallbladder is satisfactory. No significant biliary ductal dilation. Kidneys enhance symmetrically. No suspicious renal mass, calculi or hydronephrosis. Urinary bladder is intact. Uterus is present. No bowel obstruction, 11/05/24-Abd limited w/elastography -MODERATE TO SEVERE HEPATIC FIBROSIS Multiple hypoechoic nodules scattered throughout the liver as described. Fatty infiltration of the liver. Multiple hypoechoic solid nodules are seen throughout. The largest measures 4.7 cm 4.1 cm 3.5 cm. Elastography Med: 8.4 kP 01/01/25- CT Triple Phase -Hypervascular hepatic lesions on arterial phase imaging, which are isodense to normal liver parenchyma on portal venous phase imaging, most compatible with focal nodular hyperplasia (FNH). 5.1.25- Fib-4 0.57 OV 6.13.25- Pt states she is feeling better since last visit. No longer has abdominal pain. States she still is having some constipation but her bowels have improved. She states the most bowel little bit in 2 to 3 days and occasionally gets complete sensation of bowel emptying. Denies burning micturition or lower urinary tract symptoms. Has been working on diet. ROS Const Constitutional: Positive for fatigue; No fever(s) or weight change ENT ENT: No difficulty swallowing Resp Respiratory: No shortness of breath or wheezing Cardio Cardiology: No chest pain at rest or dyspnea on exertion Gastro GI: Positive for constipation and heartburn; No abdominal pain, belching, bloating, change in bowel habits, change in stool character, coffee ground emesis, cramping, diarrhea, difficulty swallowing, feeling full early, excessive flatus, incontinent of stools, Vomiting blood/hematemesis, Blood in stool, loose stools, Black,tarry stools, estiven (more content not included)... Normal [facility] AFP, Tumor Markeron 01-03-20 25 AFP TUMOR THIERRY < 1.8 Normal 0.0-6.4 [facility] Comment on above: Order Comment: N Result Comment: [employer] Electrochemiluminescence Immunoassay (ECLIA) Values obtained with different assay methods or kits cannot be used interchangeably. Results cannot be interpreted as absolute evidence of the presence or absence of malignant disease. This test is not interpretable in females. Performed By: #### L 3100.5000, L503.6550, L3100.5020, L501.6710, L500.4050, L500.4100, L3300.0700, L300.3900, L3000.0375, L501.9985, L803.2200, L800.1280, L3100.5450, L504.2610, L100.0100 ####[facility] [address] [place], [place], [id number] DRE w/ Reflex Mult Confirmon 01-02-2025 ANTI-DNA (DS)AB TNP Normal [facility] Comment on above: Performed By: #### L 3100.5000, L503.6550, L3100.5020, L501.6710, L500.4050, L500.4100, L3300.0700, L300.3900, L3000.0375, L501.9985, L803.2200, L800.1280, L3100.5450, L504.2610, L100.0100 ####[facility] [address] [place], [place], [id number] Anti-Mitochondrial ABon 05-0 ANTIMITOCHON AB <20.0 Normal 0.0-20.0 [facility] Comment on above: Result Comment: Nega tive 0.0 - 20.0 Equivocal 20.1 - 24.9 Positive >24.9 Mitochondrial (M2) Antibodies are found in 90-96% of patients with primary biliary cirrhosis. Performed By: #### L 3100.5000, L503.6550, L3100.5020, L501.6710, L500.4050, L500.4100, L3300.0700, L300.3900, L3000.0375, L501.9985, L803.2200, L800.1280, L3100.5450, L504.2610, L100.0100 ####[facility] [address] [place], [place], [id number] Anti-Smooth Muscle ABSon ANTISMOOTH MUSC 6 Units Normal 0-19 [facility] Comment on above: Result Comment: Nega tive 0 - 19 Weak positive 20 - 30 Moderate to strong positive >30 Actin Antibodies are found in 52-85% of patients with autoimmune hepatitis or chronic active hepatitis and in 22% of patients with primary biliary cirrhosis. Performed at: [address] [id number] [employer] Operator: Elier Crepso PhD, Phone: [phone] Performed By: #### L 3100.5000, L503.6550, L3100.5020, L501.6710, L500.4050, L500.4100, L3300.0700, L300.3900, L3000.0375, L501.9985, L803.2200, L800.1280, L3100.5450, L504.2610, L100.0100 ####[facility] [address] [facility] [place], [address] Cancer Antigen 125on 025 CA 125 12.7 U/mL Normal 0.0-38.1 [facility] Comment on above: Result Comment: [employer] Electrochemiluminescence Immunoassay (ECLIA) Values obtained with different assay methods or kits cannot be used interchangeably. Results cannot be interpreted as absolute evidence of the presence or absence of malignant disease. Performed By: #### L 3100.5000, L503.6550, L3100.5020, L501.6710, L500.4050, L500.4100, L3300.0700, L300.3900, L3000.0375, L501.9985, L803.2200, L800.1280, L3100.5450, L504.2610, L100.0100 ####[facility] [address] [place], [address] Carbohydrate AG 19-9on 01-02 CA 19-9 10 U/mL Normal 0-35 [facility] Comment on above: Result Comment: [employer] Electrochemiluminescence Immunoassay (ECLIA) Values obtained with different assay methods or kits cannot be used interchangeably. Results cannot be interpreted as absolute evidence of the presence or absence of malignant disease. Performed By: #### L 3100.5000, L503.6550, L3100.5020, L501.6710, L500.4050, L500.4100, L3300.0700, L300.3900, L3000.0375, L501.9985, L803.2200, L800.1280, L3100.5450, L504.2610, L100.0100 ####[facility] [address] [facility] [address] [place], [place], [id number] Hepatitis Panel Acuteon 05-0 COMMENT Comment Normal . [facility] Comment on above: Result Comment: Not infected with HCV unless early or acute infection is suspected (which may be delayed in an immunocompromised individual), or other evidence exists to indicate HCV infection. Performed By: #### L 3100.5000, L503.6550, L3100.5020, L501.6710, L500.4050, L500.4100, L3300.0700, L300.3900, L3000.0375, L501.9985, L803.2200, L800.1280, L3100.5450, L504.2610, L100.0100 ####[facility] [address] [facility] [place], [place], [id number] HEP B CORE,IgM Negative Normal Negative [facility] Comment on above: Performed By: #### L 3100.5000, L503.6550, L3100.5020, L501.6710, L500.4050, L500.4100, L3300.0700, L300.3900, L3000.0375, L501.9985, L803.2200, L800.1280, L3100.5450, L504.2610, L100.0100 ####[facility] [address] [place], [place], [phone] HEP B SURF AG Negative Normal Negative [facility] Comment on above: Performed By: #### L 3100.5000, L503.6550, L3100.5020, L501.6710, L500.4050, L500.4100, L3300.0700, L300.3900, L3000.0375, L501.9985, L803.2200, L800.1280, L3100.5450, L504.2610, L100.0100 ####[facility] [address] [place], [address] HEP C VIRUS AB Non-Reactive Normal Non Reactive [facility] Comment on above: Performed By: #### L 3100.5000, L503.6550, L3100.5020, L501.6710, L500.4050, L500.4100, L3300.0700, L300.3900, L3000.0375, L501.9985, L803.2200, L800.1280, L3100.5450, L504.2610, L100.0100 ####[facility] [address] [place], [address] HEPATITIS A-IgM Negative Normal Negative [facility] Comment on above: Result Comment: A ne gative anti-HAV IgM result suggests no recent or current HAV infection. Performed By: #### L 3100.5000, L503.6550, L3100.5020, L501.6710, L500.4050, L500.4100, L3300.0700, L300.3900, L3000.0375, L501.9985, L803.2200, L800.1280, L3100.5450, L504.2610, L100.0100 ####[facility] [address] [place], [address] Absolute lymphocyte countOrd ered By: Roldan Lewis on 01-01-2025 Lymphocytes Auto (Unsp spec) [#/Vol] 2.72 10*3/uL 0.83-4.51 [facility] Absolute neutrophil countOrd ered By: Roldan Lewis on 01-01-2025 Neutrophils (Bld) [#/Vol] 5.0 10*3/uL 2.0-7.7 [facility] Anion gap in Serum or Plasma Ordered By: Roldan Lewis on 01-01-2025 Anion gap [Moles/Vol] 9 mmol/L 5-15 [facility] Automated lymphocyte count a s percentage of total leukocytesOrdered By: Roldan Lewis on 01-01-2025 Lymphocytes/100 WBC Auto (Unsp spec) 32.2 % 19-41 [facility] BUN/creatinine ratioOrdered By: Roldan Lewis on 01-01-2025 Urea nitrogen/Creatinine [Mass ratio] 22.4 mg/mg High 10-20 [facility] Basophil percentageOrdered B y: Roldan Lewis on 01-01-2025 Basophils/100 WBC (Bld) 0.5 % 0-1 [facility] Bilirubin, totalOrdered By: Roldan Lewis on 01-01-2025 Bilirubin [Mass/Vol] 0.19 mg/dL 0.00-1.30 [facility] CA 19-9 agOrdered By: Philipp Lewis on 01-01-2025 CA 19-9 ag 10 U/mL 0-35 [facility] Comment on above: [employer] El ectrochemiluminescence Immunoassay(ECLIA)Values obtained with different assay methods or kits cannotbe used interchangeably. Results cannot be interpreted asabsolute evidence of the presence or absence of malignantdisease. CBC W/Diff, Automatedon Absolute Lymph 2.72 X10 3/uL Normal 0.83-4.51 [facility] Comment on above: Performed By: #### L 3100.5000, L503.6550, L3100.5020, L501.6710, L500.4050, L500.4100, L3300.0700, L300.3900, L3000.0375, L501.9985, L803.2200, L800.1280, L3100.5450, L504.2610, L100.0100 ####[facility] [address] [place], [place], [phone] Absolute Neut 5.0 X10 3/uL Normal 2.0-7.7 [facility] Comment on above: Performed By: #### L 3100.5000, L503.6550, L3100.5020, L501.6710, L500.4050, L500.4100, L3300.0700, L300.3900, L3000.0375, L501.9985, L803.2200, L800.1280, L3100.5450, L504.2610, L100.0100 ####[facility] [address] [place], [place], [phone] Basophils/100 WBC (Bld) 0.5 % Normal 0-1 [facility] Comment on above: Performed By: #### L 3100.5000, L503.6550, L3100.5020, L501.6710, L500.4050, L500.4100, L3300.0700, L300.3900, L3000.0375, L501.9985, L803.2200, L800.1280, L3100.5450, L504.2610, L100.0100 ####[facility] [address] [place], [phone]) Eosinophils/100 WBC (Bld) 0.8 % Normal 0-5 [facility] Comment on above: Performed By: #### L 3100.5000, L503.6550, L3100.5020, L501.6710, L500.4050, L500.4100, L3300.0700, L300.3900, L3000.0375, L501.9985, L803.2200, L800.1280, L3100.5450, L504.2610, L100.0100 ####[facility] [address] [facility] [place], [phone] Erythrocyte distribution width (RBC) [Ratio] 13.0 % Normal 11.6-14.6 [facility] Comment on above: Performed By: #### L 3100.5000, L503.6550, L3100.5020, L501.6710, L500.4050, L500.4100, L3300.0700, L300.3900, L3000.0375, L501.9985, L803.2200, L800.1280, L3100.5450, L504.2610, L100.0100 ####[facility] [address] [facility] [place], [place], [phone] Hematocrit (Bld) [Volume fraction] 43.1 % Normal 37-47 [facility] Comment on above: Performed By: #### L 3100.5000, L503.6550, L3100.5020, L501.6710, L500.4050, L500.4100, L3300.0700, L300.3900, L3000.0375, L501.9985, L803.2200, L800.1280, L3100.5450, L504.2610, L100.0100 ####[facility] [address] [facility] [place], [address] Hemoglobin (Bld) [Mass/Vol] 14.1 g/dL Normal 12.0-15.0 [facility] Comment on above: Performed By: #### L 3100.5000, L503.6550, L3100.5020, L501.6710, L500.4050, L500.4100, L3300.0700, L300.3900, L3000.0375, L501.9985, L803.2200, L800.1280, L3100.5450, L504.2610, L100.0100 ####[facility] [address] [facility] [place], [place], [phone] IG% 0.400 Normal 0.0-0.9 [facility] Comment on above: Result Comment: IG% - Immature Granulocytes (promyelocytes, myelocytes and metamyelocytes) > 1% indicates that a LEFT SHIFT is Present. Performed By: #### L 3100.5000, L503.6550, L3100.5020, L501.6710, L500.4050, L500.4100, L3300.0700, L300.3900, L3000.0375, L501.9985, L803.2200, L800.1280, L3100.5450, L504.2610, L100.0100 ####[facility] [address] [facility] [place], [address] Lymphocytes/100 WBC (Bld) 32.2 % Normal 19-41 [facility] Comment on above: Performed By: #### L 3100.5000, L503.6550, L3100.5020, L501.6710, L500.4050, L500.4100, L3300.0700, L300.3900, L3000.0375, L501.9985, L803.2200, L800.1280, L3100.5450, L504.2610, L100.0100 ####[facility] [address] [place], [address] MCH (RBC) [Entitic mass] 30.3 pg Normal 27.0-32.0 [facility] Comment on above: Performed By: #### L 3100.5000, L503.6550, L3100.5020, L501.6710, L500.4050, L500.4100, L3300.0700, L300.3900, L3000.0375, L501.9985, L803.2200, L800.1280, L3100.5450, L504.2610, L100.0100 ####[facility] [address] [facility] [place], [address] MCHC (RBC) [Mass/Vol] 32.7 g/dL Normal 32-36 [facility] Comment on above: Performed By: #### L 3100.5000, L503.6550, L3100.5020, L501.6710, L500.4050, L500.4100, L3300.0700, L300.3900, L3000.0375, L501.9985, L803.2200, L800.1280, L3100.5450, L504.2610, L100.0100 ####[facility] [address] [place], [address] MCV (RBC) [Entitic vol] 92.5 fL Normal 81-99 [facility] Comment on above: Performed By: #### L 3100.5000, L503.6550, L3100.5020, L501.6710, L500.4050, L500.4100, L3300.0700, L300.3900, L3000.0375, L501.9985, L803.2200, L800.1280, L3100.5450, L504.2610, L100.0100 ####[facility] [address] [place], [address] Monocytes/100 WBC (Bld) 7.1 % Normal 0-10 [facility] Comment on above: Performed By: #### L 3100.5000, L503.6550, L3100.5020, L501.6710, L500.4050, L500.4100, L3300.0700, L300.3900, L3000.0375, L501.9985, L803.2200, L800.1280, L3100.5450, L504.2610, L100.0100 ####[facility] [address] [place], [address] Neutrophils/100 WBC (Bld) 59.0 % Normal 47-70 [facility] Comment on above: Performed By: #### L 3100.5000, L503.6550, L3100.5020, L501.6710, L500.4050, L500.4100, L3300.0700, L300.3900, L3000.0375, L501.9985, L803.2200, L800.1280, L3100.5450, L504.2610, L100.0100 ####[facility] [address] [place], [address] Nucleated RBC (Bld) [#/Vol] 0 10*3/uL Normal 0-5 [facility] Comment on above: Performed By: #### L 3100.5000, L503.6550, L3100.5020, L501.6710, L500.4050, L500.4100, L3300.0700, L300.3900, L3000.0375, L501.9985, L803.2200, L800.1280, L3100.5450, L504.2610, L100.0100 ####[facility] [address] [place], [address] Platelet mean volume (Bld) [Entitic vol] 10.3 fL Normal 6.2-12.0 [facility] Comment on above: Performed By: #### L 3100.5000, L503.6550, L3100.5020, L501.6710, L500.4050, L500.4100, L3300.0700, L300.3900, L3000.0375, L501.9985, L803.2200, L800.1280, L3100.5450, L504.2610, L100.0100 ####[facility] [address] [place], [address] Platelets (Bld) [#/Vol] 246 10*3/uL Normal 150-450 [facility] Comment on above: Performed By: #### L 3100.5000, L503.6550, L3100.5020, L501.6710, L500.4050, L500.4100, L3300.0700, L300.3900, L3000.0375, L501.9985, L803.2200, L800.1280, L3100.5450, L504.2610, L100.0100 ####[facility] [address] [place], [address] RBC (Bld) [#/Vol] 4.66 10*6/uL Normal 4.2-5.4 [facility] Comment on above: Performed By: #### L 3100.5000, L503.6550, L3100.5020, L501.6710, L500.4050, L500.4100, L3300.0700, L300.3900, L3000.0375, L501.9985, L803.2200, L800.1280, L3100.5450, L504.2610, L100.0100 ####[facility] [address] [place], [place], [phone] RDW SD 43.9 fl Normal 35.1-43.9 [facility] Comment on above: Performed By: #### L 3100.5000, L503.6550, L3100.5020, L501.6710, L500.4050, L500.4100, L3300.0700, L300.3900, L3000.0375, L501.9985, L803.2200, L800.1280, L3100.5450, L504.2610, L100.0100 ####[facility] [address] [place], [place], [phone] WBC (Bld) [#/Vol] 8.5 10*3/uL Normal 4.4-11.0 [facility] Comment on above: Performed By: #### L 3100.5000, L503.6550, L3100.5020, L501.6710, L500.4050, L500.4100, L3300.0700, L300.3900, L3000.0375, L501.9985, L803.2200, L800.1280, L3100.5450, L504.2610, L100.0100 ####[facility] [address] [place], [place], [phone] CRPon 01-01-2025 C-REACTIVE PROT 8.04 mg/L High 0.0-3.0 [facility] Comment on above: Performed By: #### L 3100.5000, L503.6550, L3100.5020, L501.6710, L500.4050, L500.4100, L3300.0700, L300.3900, L3000.0375, L501.9985, L803.2200, L800.1280, L3100.5450, L504.2610, L100.0100 ####[facility] [address] [facility] [place], [address] CT Abd/Pelvis W/WO Contrasto n 01-01-2025 CT Abd/Pelvis W/WO Contrast [facility] [address] [place], [place] [address] CT Abd/Pelvis W/WO Contrast MR#: [id number] Acct: [id number] Name: POLLO CARRENO Rep #: [id number] : 1985 F 39 From: Malgorzata Tinajero nd, MD PCP: Dr. Cleo Joseph, DO Status: REG CLI Study: CT Abd/Pelvis W/WO Contrast Date of Exam: 09/27 Exam# [id number] Ordering Dr: Roldan Lewis MD PROCEDURE: CT ABD/PELVIS W/WO CONTRAST 01/01/2025 REASON FOR EXAM: MULTIPLE LIVER NODULES REPORTED IN CT TECHNIQUE: Arterial, noncontrast and delayed phase imaging of the abdomen were obtained. Additional venous phase abdomen and pelvis imaging was obtained. Coronal and Sagittal reconstruction series were provided. PATIENT PREPARATION: Per protocol ORAL CONTRAST TYPE: None. CONTRAST: Isovue-300 VOLUME: 100 ML One or more dose reduction techniques were used (e.g., Automated exposure control, adjustment of the mA and/or kV according to patient size, use of iterative reconstruction technique. RADIATION DOSE SUMMARY: CTDlvol: 100 mGy DLP: 4000 mGycm COMPARISON: PET-CT 11/18/2024, CT abdomen pelvis 11/15/2024. FINDINGS: Lung bases: The lung bases are clear. The heart is normal in size. Liver: Unchanged mildly arterially enhancing globular lesion along the peripheral left hepatic lobe. The lesion demonstrates mild hypodensity on noncontrast imaging, with washout on venous and delayed phase imaging. Unchanged subtle arterially enhancing lesions within the right hepatic lobe, the largest within segment 8, demonstrating noncontrast and delayed phase isodensity, and near-complete washout on venous phase imaging. Mild diffuse hepatic steatosis. The major portal veins are patent. No biliary ductal dilation. Gallbladder: No radiopaque stones within the gallbladder. Spleen: Normal size. Pancreas: Unremarkable. Adrenals: No adrenal mass. Kidneys: No hydronephrosis or nephrolithiasis. Bladder: Minimally distended and unremarkable. Reproductive Organs: Normal uterine size and contour. Ovaries are unremarkable. Bowel: The bowel loops are normal in caliber. No ascites or pneumoperitoneum. Normal appendix. Lymph nodes: No suspicious lymph node enlargement. Vasculature: The abdominal aorta and IVC are normal. Bones: Minimal degenerative changes of the spine. CT/CT Abd/Pelvis W/WO Contrast IMPRESSION: 1. 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 2. Mild hepatic steatosis. Reading Location: [facility] CC: Dr. Cleo Joseph DO; Dr. Roldan Lewis MD Lumber Racker: Signed Normal [facility] Calculated very low density lipoprotein (VLDL) cholesterol measurementOrdered By: Roldan Lewis on 01-01-2025 Calculated very low density lipoprotein (VLDL) cholesterol measurement 15 mg/dL 5-40 [facility] Cancer antigen 125 (CA-125) measurementOrdered By: Roldan Lewis on 01-01-2025 Cancer antigen 125 (CA-125) measurement 12.7 U/mL 0.0-38.1 [facility] Comment on above: [employer] El ectrochemiluminescence Immunoassay(ECLIA)Values obtained with different assay methods or kits cannotbe used interchangeably. Results cannot be interpreted asabsolute evidence of the presence or absence of malignantdisease. Carbon dioxide, total [Moles /volume] in Central venous bloodOrdered By: Roldan Lewis on 01-01-2025 CO2 [Moles/Vol] 23.0 mmol/L 21.0-32.0 [facility] Chloride assayOrdered By: Rocio Lewis on 01-01-2025 Chloride [Moles/Vol] 105 mmol/L 98-108 [facility] Comprehensive Metabolic Prof ilon 01-01-2025 Albumin [Mass/Vol] 3.9 g/dL Normal 3.5-5.0 [facility] Comment on above: Performed By: #### L 3100.5000, L503.6550, L3100.5020, L501.6710, L500.4050, L500.4100, L3300.0700, L300.3900, L3000.0375, L501.9985, L803.2200, L800.1280, L3100.5450, L504.2610, L100.0100 ####[facility] [address] [place], [place], [phone] Albumin/Globulin [Mass ratio] 1.2 {ratio} Normal 0.9-2.4 [facility] Comment on above: Performed By: #### L 3100.5000, L503.6550, L3100.5020, L501.6710, L500.4050, L500.4100, L3300.0700, L300.3900, L3000.0375, L501.9985, L803.2200, L800.1280, L3100.5450, L504.2610, L100.0100 ####[facility] [address] [place], [place], [id number] ALK PHOS 102 U/L Normal 35-104 [facility] Comment on above: Performed By: #### L 3100.5000, L503.6550, L3100.5020, L501.6710, L500.4050, L500.4100, L3300.0700, L300.3900, L3000.0375, L501.9985, L803.2200, L800.1280, L3100.5450, L504.2610, L100.0100 ####[facility] [address] [place], [address] ALT [Catalytic activity/Vol] 32 U/L Normal <=34 [facility] Comment on above: Performed By: #### L 3100.5000, L503.6550, L3100.5020, L501.6710, L500.4050, L500.4100, L3300.0700, L300.3900, L3000.0375, L501.9985, L803.2200, L800.1280, L3100.5450, L504.2610, L100.0100 ####[facility] [address] [place], [address] AST [Catalytic activity/Vol] 20 U/L Normal <=31 [facility] Comment on above: Performed By: #### L 3100.5000, L503.6550, L3100.5020, L501.6710, L500.4050, L500.4100, L3300.0700, L300.3900, L3000.0375, L501.9985, L803.2200, L800.1280, L3100.5450, L504.2610, L100.0100 ####[facility] [address] [place], [address] Bilirubin [Mass/Vol] 0.19 mg/dL Normal 0.00-1.30 [facility] Comment on above: Performed By: #### L 3100.5000, L503.6550, L3100.5020, L501.6710, L500.4050, L500.4100, L3300.0700, L300.3900, L3000.0375, L501.9985, L803.2200, L800.1280, L3100.5450, L504.2610, L100.0100 ####[facility] [address] [place], [place], [phone] BUN/CRE 22.4 RATIO High 10-20 [facility] Comment on above: Performed By: #### L 3100.5000, L503.6550, L3100.5020, L501.6710, L500.4050, L500.4100, L3300.0700, L300.3900, L3000.0375, L501.9985, L803.2200, L800.1280, L3100.5450, L504.2610, L100.0100 ####[facility] [address] [place], [address] Calcium [Mass/Vol] 9.1 mg/dL Normal 7.6-11.0 [facility] Comment on above: Performed By: #### L 3100.5000, L503.6550, L3100.5020, L501.6710, L500.4050, L500.4100, L3300.0700, L300.3900, L3000.0375, L501.9985, L803.2200, L800.1280, L3100.5450, L504.2610, L100.0100 ####[facility] [address] [place], [place], [phone] Chloride [Moles/Vol] 105 mmol/L Normal 98-108 [facility] Comment on above: Performed By: #### L 3100.5000, L503.6550, L3100.5020, L501.6710, L500.4050, L500.4100, L3300.0700, L300.3900, L3000.0375, L501.9985, L803.2200, L800.1280, L3100.5450, L504.2610, L100.0100 ####[facility] [address] [place], [place], [phone]) CO2 [Moles/Vol] 23.0 mmol/L Normal 21.0-32.0 [facility] Comment on above: Performed By: #### L 3100.5000, L503.6550, L3100.5020, L501.6710, L500.4050, L500.4100, L3300.0700, L300.3900, L3000.0375, L501.9985, L803.2200, L800.1280, L3100.5450, L504.2610, L100.0100 ####[facility] [address] [place], [address] Creatinine [Mass/Vol] 0.95 mg/dL Normal 0.70-1.20 [facility] Comment on above: Performed By: #### L 3100.5000, L503.6550, L3100.5020, L501.6710, L500.4050, L500.4100, L3300.0700, L300.3900, L3000.0375, L501.9985, L803.2200, L800.1280, L3100.5450, L504.2610, L100.0100 ####[facility] [address] [facility] [place], [address] GAP 9 Normal 5-15 [facility] Comment on above: Performed By: #### L 3100.5000, L503.6550, L3100.5020, L501.6710, L500.4050, L500.4100, L3300.0700, L300.3900, L3000.0375, L501.9985, L803.2200, L800.1280, L3100.5450, L504.2610, L100.0100 ####[facility] [address] [facility] [place], [address] GFR/1.73 sq M.predicted among non-blacks MDRD (S/P/Bld) [Vol rate/Area] 78 mL/min/{1.73_m2} Normal >60 [facility] Comment on above: Result Comment: mL/m in/1.73m2 CKD-EPI Creatinine Equation (2020) Performed By: #### L 3100.5000, L503.6550, L3100.5020, L501.6710, L500.4050, L500.4100, L3300.0700, L300.3900, L3000.0375, L501.9985, L803.2200, L800.1280, L3100.5450, L504.2610, L100.0100 ####[facility] [address] [facility]. [place], [place], [phone] Globulin (S) [Mass/Vol] 3.4 g/dL Normal 2.2-4.2 [facility] Comment on above: Performed By: #### L 3100.5000, L503.6550, L3100.5020, L501.6710, L500.4050, L500.4100, L3300.0700, L300.3900, L3000.0375, L501.9985, L803.2200, L800.1280, L3100.5450, L504.2610, L100.0100 ####[facility] [address] [facility]. [place], [place], [phone] Glucose [Mass/Vol] 108 mg/dL High 70-99 [facility] Comment on above: Performed By: #### L 3100.5000, L503.6550, L3100.5020, L501.6710, L500.4050, L500.4100, L3300.0700, L300.3900, L3000.0375, L501.9985, L803.2200, L800.1280, L3100.5450, L504.2610, L100.0100 ####[facility] [address] [facility]. [place], [place], [phone] Potassium [Moles/Vol] 4.0 mmol/L Normal 3.3-5.1 [facility] Comment on above: Performed By: #### L 3100.5000, L503.6550, L3100.5020, L501.6710, L500.4050, L500.4100, L3300.0700, L300.3900, L3000.0375, L501.9985, L803.2200, L800.1280, L3100.5450, L504.2610, L100.0100 ####[facility] [address] [place], [place], [phone] Sodium [Moles/Vol] 138 mmol/L Normal 133-145 [facility] Comment on above: Performed By: #### L 3100.5000, L503.6550, L3100.5020, L501.6710, L500.4050, L500.4100, L3300.0700, L300.3900, L3000.0375, L501.9985, L803.2200, L800.1280, L3100.5450, L504.2610, L100.0100 ####[facility] [address] [place], [place], [id number] T PROT 7.3 g/dL Normal 5.9-8.4 [facility] Comment on above: Performed By: #### L 3100.5000, L503.6550, L3100.5020, L501.6710, L500.4050, L500.4100, L3300.0700, L300.3900, L3000.0375, L501.9985, L803.2200, L800.1280, L3100.5450, L504.2610, L100.0100 ####[facility] [address] [place], [place], [phone] Urea nitrogen [Mass/Vol] 21 mg/dL High 4-19 [facility] Comment on above: Performed By: #### L 3100.5000, L503.6550, L3100.5020, L501.6710, L500.4050, L500.4100, L3300.0700, L300.3900, L3000.0375, L501.9985, L803.2200, L800.1280, L3100.5450, L504.2610, L100.0100 ####[facility] [address] [place], [place], [phone] Eosinophil percentageOrdered By: Roldan Lewis on 01-01-2025 Eosinophils/100 WBC (Bld) 0.8 % 0-5 [facility] Erythrocyte distribution wid th ratioOrdered By: Roldan Lewis on 01-01-2025 Erythrocyte distribution width (RBC) [Ratio] 13.0 % 11.6-14.6 [facility] Erythrocyte distribution wid th standard deviationOrdered By: Roldan Lewis on 01-01-2025 Erythrocyte distribution width (RBC) [Ratio] 43.9 fl 35.1-43.9 [facility] Ferritinon 01-01-2025 Ferritin [Mass/Vol] 82 ng/mL Normal 22-378 [facility] Comment on above: Performed By: #### L 3100.5000, L503.6550, L3100.5020, L501.6710, L500.4050, L500.4100, L3300.0700, L300.3900, L3000.0375, L501.9985, L803.2200, L800.1280, L3100.5450, L504.2610, L100.0100 ####[facility] [address] [place], [place], [phone] Glomerular filtration rate ( GFR) estimation/1.73 sq m using serum, plasma, or whole bOrdered By: Roldan Lewis on 01-01-2025 GFR/1.73 sq M.predicted among non-blacks MDRD (S/P/Bld) [Vol rate/Area] 78 mL/min/{1.73_m2} >60 [facility] Comment on above: mL/min/1.73m2 CKD-EP I Creatinine Equation (2020) Hematocrit Auto (Bld) [Volum e fraction]Ordered By: Roldan Lewis on 01-01-2025 Hematocrit (Bld) [Volume fraction] 43.1 % 37-47 [facility] Hemoglobin A1con 01-01-2025 HbA1c (Bld) [Mass fraction] 5.7 % Normal <=5.6 [facility] Comment on above: Result Comment: Norm al < 5.7 % Prediabetic 5.7 - 6.4 % Diabetic >or= 6.5 % Please note range changes. Performed By: #### L 3100.5000, L503.6550, L3100.5020, L501.6710, L500.4050, L500.4100, L3300.0700, L300.3900, L3000.0375, L501.9985, L803.2200, L800.1280, L3100.5450, L504.2610, L100.0100 ####[facility] [address] [place], [place], [phone] Hemoglobin A1c percentageOrd ered By: Roldan Lewis on 01-01-2025 HbA1c (Bld) [Mass fraction] 5.7 % <5.7 [facility] Comment on above: Normal < 5.7 % Predi abetic 5.7 - 6.4 % Diabetic >or= 6.5 % Please note range changes. Hemoglobin measurementOrdere d By: Roldan Lewis on 01-01-2025 Hemoglobin (Bld) [Mass/Vol] 14.1 g/dL 12.0-15.0 [facility] Immature granulocytes/100 WB C Auto (Bld)Ordered By: Roldan Lewis on 01-01-2025 Immature granulocytes/100 WBC (Bld) 0.400 % 0.0-0.9 [facility] Comment on above: IG% - Immature Granu locytes (promyelocytes, myelocytes and metamyelocytes) > 1% indicates that a LEFT SHIFT is Present. International normalized rat io (INR) calculationOrdered By: Roldan Lewis on 01-01-2025 INR Coag (Bld) [Relative time] 0.9 {INR} [facility] LDHon 01-01-2025 LDH 200 U/L Normal 84-246 [facility] Comment on above: Order Comment: 1 Performed By: #### L 3100.5000, L503.6550, L3100.5020, L501.6710, L500.4050, L500.4100, L3300.0700, L300.3900, L3000.0375, L501.9985, L803.2200, L800.1280, L3100.5450, L504.2610, L100.0100 ####[facility] [address] [place], [place], [phone] LDL calc ser/plasOrdered By: Roldan Lewis on 01-01-2025 Cholesterol in LDL [Mass/Vol] 104 mg/dL [facility] Comment on above: Npxmexvwon=780-621 m g/dL & Higher Jpxb=568 mg/dL or greater Laboratory - Chemistry and C hemistry - challengeOrdered By: Roldan Lewis on 01-01-2025 AST [Catalytic activity/Vol] 20 U/L <32 [facility] Lactate dehydrogenase (LDH) measurementOrdered By: Roldan Lewis on 01-01-2025 LDH [Catalytic activity/Vol] 200 U/L 84-246 [facility] Lipid Profileon 01-01-2025 CHOL:HDL 4.34 Normal [facility] Comment on above: Performed By: #### L 3100.5000, L503.6550, L3100.5020, L501.6710, L500.4050, L500.4100, L3300.0700, L300.3900, L3000.0375, L501.9985, L803.2200, L800.1280, L3100.5450, L504.2610, L100.0100 ####[facility] [address] [facility]. [place], [place], [phone] Cholesterol [Mass/Vol] 154 mg/dL Normal <=200 [facility] Comment on above: Result Comment: Chol esterol level, Desirable <200 mg/dL Borderline high cholesterol 200-239 mg/dL High cholesterol >=240 mg/dL Recommendations of the NCEP Adult Treatment Panel for the following risk-cutoff thresholds for the [place] population. Performed By: #### L 3100.5000, L503.6550, L3100.5020, L501.6710, L500.4050, L500.4100, L3300.0700, L300.3900, L3000.0375, L501.9985, L803.2200, L800.1280, L3100.5450, L504.2610, L100.0100 ####[facility] [address] [facility]. [place], [place], [phone] Cholesterol in HDL [Mass/Vol] 36 mg/dL Low [facility] Comment on above: Result Comment: Stella onal Cholesterol Education Program (NCEP) guidelines: <40 mg/dL: Low HDL-cholesterol (major risk factor for CHD) >= 60 mg/dL: High HDL-cholesterol (negative risk factor for CHD) HDL-cholesterol is affected by a number of factors, e.g. smoking, exercise, hormones, sex and age. Performed By: #### L 3100.5000, L503.6550, L3100.5020, L501.6710, L500.4050, L500.4100, L3300.0700, L300.3900, L3000.0375, L501.9985, L803.2200, L800.1280, L3100.5450, L504.2610, L100.0100 ####[facility] [address] [facility] [place], [address]) Cholesterol in LDL [Mass/Vol] 104 mg/dL Normal [facility] Comment on above: Result Comment: Bord rtlgnk=310-368 mg/dL Higher Ojez=546 mg/dL or greater Performed By: #### L 3100.5000, L503.6550, L3100.5020, L501.6710, L500.4050, L500.4100, L3300.0700, L300.3900, L3000.0375, L501.9985, L803.2200, L800.1280, L3100.5450, L504.2610, L100.0100 ####[facility] [address] [facility] [place], [address]) Cholesterol in VLDL [Mass/Vol] 15 mg/dL Normal 5-40 [facility] Comment on above: Performed By: #### L 3100.5000, L503.6550, L3100.5020, L501.6710, L500.4050, L500.4100, L3300.0700, L300.3900, L3000.0375, L501.9985, L803.2200, L800.1280, L3100.5450, L504.2610, L100.0100 ####[facility] [address] [facility] [place], [place], [phone] Triglyceride [Mass/Vol] 74 mg/dL Normal [facility] Comment on above: Result Comment: The drugs N-Acetylcysteine and Metamizole may falsely depress this assay. Normal range: <150 mg/dL Borderline High: 150-199 mg/dL High: 200-499 mg/dL Very High: >500 mg/dL Performed By: #### L 3100.5000, L503.6550, L3100.5020, L501.6710, L500.4050, L500.4100, L3300.0700, L300.3900, L3000.0375, L501.9985, L803.2200, L800.1280, L3100.5450, L504.2610, L100.0100 ####[facility] [address] [facility]. [place], [place], [phone] MCV (mean corpuscular volume ) determinationOrdered By: Roldan Lewis on 01-01-2025 MCV (RBC) [Entitic vol] 92.5 fL 81-99 [facility] Mean corpuscular hemoglobin (MCH) determinationOrdered By: Roldan Lewis on 01-01-2025 MCH (RBC) [Entitic mass] 30.3 pg 27.0-32.0 [facility] Mean corpuscular hemoglobin concentration (MCHC) determinationOrdered By: Roldan Lewis on 01-01-2025 MCHC (RBC) [Mass/Vol] 32.7 g/dL 32-36 [facility] Mean platelet volume determi nationOrdered By: Roldan Lewis on 01-01-2025 Platelet mean volume (Bld) [Entitic vol] 10.3 fL 6.2-12.0 [facility] Monocyte percentageOrdered B y: Roldan Lewis on 01-01-2025 Monocytes/100 WBC (Bld) 7.1 % 0-10 [facility] Neutrophil percentageOrdered By: Roldan Lewis on 01-01-2025 Neutrophils/100 WBC (Bld) 59.0 % 47-70 [facility] No Panel InformationOrdered By: Roldan Lewis on 01-01-2025 Hepatitis C Antibody Comment Comment . [facility] Comment on above: Not infected with HC V unless early or acute infection issuspected (which may be delayed in an immunocompromisedindividual), or other evidence exists to indicate HCVinfection. Nucleated red blood cell per centageOrdered By: Roldan Lewis on 01-01-2025 Nucleated RBC/100 WBC (Bld) [Ratio] 0 % 0-5 [facility] Platelet countOrdered By: Rocio Lewis on 01-01-2025 Platelets (Bld) [#/Vol] 246 10*3/uL 150-450 [facility] Potassium measurement (mass/ volume)Ordered By: Roldan Lewis on 01-01-2025 Potassium (Unsp spec) [Mass/Vol] 4.0 mmol/L 3.3-5.1 [facility] Prothrombin Time w/INRon INR Coag (PPP) [Relative time] 0.9 {INR} Normal [facility] Comment on above: Performed By: #### L 3100.5000, L503.6550, L3100.5020, L501.6710, L500.4050, L500.4100, L3300.0700, L300.3900, L3000.0375, L501.9985, L803.2200, L800.1280, L3100.5450, L504.2610, L100.0100 ####[facility] [address] [place], [place], [id number] PT Coag (PPP) [Time] 12.3 s Normal 11.7-14.9 [facility] Comment on above: Performed By: #### L 3100.5000, L503.6550, L3100.5020, L501.6710, L500.4050, L500.4100, L3300.0700, L300.3900, L3000.0375, L501.9985, L803.2200, L800.1280, L3100.5450, L504.2610, L100.0100 ####[facility] [address] [place], [address] Prothrombin timeOrdered By: Roldan Lewis on 01-01-2025 PT Coag (PPP) [Time] 12.3 s 11.7-14.9 [facility] RBC Auto (Bld) [#/Vol]Ordere d By: Roldan Lewis on 01-01-2025 RBC (Bld) [#/Vol] 4.66 10*6/uL 4.2-5.4 [facility] Screening total cholesterol/ high density lipoprotein (HDL) cholesterol ratioOrdered By: Roldan Lewis on 01-01-2025 Cholesterol.total/Cho lesterol in HDL [Mass ratio] 4.34 {ratio} [facility] Serum DNA double strand anti body assay (units/volume)Ordered By: Roldan Lewis on 01-01-2025 DNA double strand Ab Qn (S) [facility] Comment on above: Test not performed Serum Scl-70 antibody assay (units/volume)Ordered By: Roldan Lewis on 01-01-2025 SCL-70 extractable nuclear Ab Qn (S) [facility] Comment on above: Test not performed Serum creatinine measurement (mass/volume)Ordered By: Roldan Lewis on 01-01-2025 Creatinine [Mass/Vol] 0.95 mg/dL 0.70-1.20 [facility] Serum globulin measurementOr dered By: Roldan Lewis on 01-01-2025 Globulin (S) [Mass/Vol] 3.4 g/dL 2.2-4.2 [facility] Serum glucose measurement (m ass/volume)Ordered By: Roldan Lewis on 01-01-2025 Glucose [Mass/Vol] 108 mg/dL High 70-99 [facility] Serum mitochondria antibody detectionOrdered By: Roldan Lewis on 01-01-2025 Mitochondria Ab Ql (S) <20.0 Units 0.0-20.0 [facility] Comment on above: Negative 0.0 - 20.0 Equivocal 20.1 - 24.9 Positive >24.9Mitochondrial (M2) Antibodies are found in 90-96% ofpatients with primary biliary cirrhosis. Serum or plasma C reactive p rotein measurement (mass/volume)Ordered By: Roldan Lewis on 01-01-2025 CRP [Mass/Vol] 8.04 mg/L High 0.0-3.0 [facility] Serum or plasma actin IgG an tibody assay (units/volume)Ordered By: Roldan Lewis on 01-01-2025 Actin IgG Qn 6 Units 0-19 [facility] Comment on above: Negative 0 - 19 Weak positive 20 - 30 Moderate to strong positive >30 Actin Antibodies are found in 52-85% of patients with autoimmune hepatitis or chronic active hepatitis and in 22% of patients with primary biliary cirrhosis.Performed at: [facility] [id number] Director: Elier Crespo PhD, Phone: [phone] Serum or plasma alanine pantoja otransferase (ALT) measurementOrdered By: Roldan Lewis on 01-01-2025 ALT [Catalytic activity/Vol] 32 U/L <35 [facility] Serum or plasma albumin domenico urement (mass/volume)Ordered By: Roldan Lewis on 01-01-2025 Albumin [Mass/Vol] 3.9 g/dL 3.5-5.0 [facility] Serum or plasma albumin/glob ulin mass ratioOrdered By: Roldan Lewis on 01-01-2025 Albumin/Globulin [Mass ratio] 1.2 {ratio} 0.9-2.4 [facility] Serum or plasma alkaline dolly sphatase measurementOrdered By: Roldan Lewis on 01-01-2025 ALP [Catalytic activity/Vol] 102 U/L 35-104 [facility] Serum or plasma calcium domenico urement (mass/volume)Ordered By: Roldan Lewis on 01-01-2025 Calcium [Mass/Vol] 9.1 mg/dL 7.6-11.0 [facility] Serum or plasma cholesterol in HDL measurement (mass/volume)Ordered By: Roldan Lewis on 01-01-2025 Cholesterol in HDL [Mass/Vol] 36 mg/dL Low >40 [facility] Comment on above: National Cholesterol Education Program (NCEP) guidelines:<40 mg/dL: Low HDL-cholesterol (major risk factor for CHD)>= 60 mg/dL: High HDL-cholesterol (negative risk factor for CHD)HDL-cholesterol is affected by a number of factors, e.g. smoking, exercise, hormones, sex and age. Serum or plasma cholesterol measurement (mass/volume)Ordered By: Roldan Lewis on 01-01-2025 Cholesterol [Mass/Vol] 154 mg/dL <201 [facility] Comment on above: Cholesterol level, D esirable <200 mg/dLBorderline high cholesterol 200-239 mg/dLHigh cholesterol >=240 mg/dLRecommendations of the NCEP Adult Treatment Panel for the following risk-cutoff thresholds for the [place] population. Serum or plasma ferritin marina surement (mass/volume)Ordered By: Roldan Lewis on 01-01-2025 Ferritin [Mass/Vol] 82 ng/mL 22-378 [facility] Serum or plasma hepatitis B virus surface antigen detection by immunoassayOrdered By: Roldan Lewis on 01-01-2025 HBV surface Ag IA Ql Negative Negative [facility] Serum or plasma urea nitroge n measurement (mass/volume)Ordered By: Roldan Lewis on 01-01-2025 Urea nitrogen [Mass/Vol] 21 mg/dL High 4-19 [facility] Sodium levelOrdered By: Machelle Lewis on 01-01-2025 Sodium [Moles/Vol] 138 mmol/L 133-145 [facility] Total proteinOrdered By: Laureano Lewis on 01-01-2025 Protein [Mass/Vol] 7.3 g/dL 5.9-8.4 [facility] Triglycerides measurementOrd ered By: Roldan Lewis on 01-01-2025 Triglyceride [Mass/Vol] 74 mg/dL <199 [facility] Comment on above: The drugs N-Acetylcy steine and Metamizole may falsely depress this assay. Normal range: <150 mg/dLBorderline High: 150-199 mg/dLHigh: 200-499 mg/dLVery High: >500 mg/dL White blood cell (WBC) count Ordered By: Roldan Lewis on 01-01-2025 WBC (Bld) [#/Vol] 8.5 10*3/uL 4.4-11.0 [facility] Gastroenterology Visit Repor ton 12-12-2024 Gastroenterology Visit Report [facility] [address] [place] [address] OFFICE VISIT Date of Service: 12/12/24 MR#: [id number] Acct: [id number] Name: POLLO CARRENO Rep #: [id number] : 1985 Provider: Dr. Roldan chang MD Age/Sex: 39/F [place] [facility] [place] Status: Signed with Addenda ADDENDUM by Dr. Roldan Lewis MD on 12/12/24 at 1332 HPI Details: POLLO CARRENO, is a 39 F who presents to the office today for Addendum Patient's mother has breast cancer. Patient's grandmother has breast cancer in 2/2 liver. No history of primary liver cancer in the family. Patient denies loss of appetite or loss of weight. Patient actually obesity grade 3 BMI 40.6 [facility], will strive to lose weight. She was also taking semaglutide but had constipation with burping and possible gastroparesis as per ER physician note therefore quit taking semaglutide. 12/12/24 1332 Date Roldan Lewis MD cc: Dr. Cleo Joseph, DO * Signed Intake Vital Signs 02/28/24 11:07 11/20/24 10:03 Height 5 ft 10 in 5 ft 10 in Weight: 283 lb 2 oz BMI 40.6 BP 131/84 H Position Sitting Pulse 90 Pulse Oximetry (%) 98 Intake Visit Reasons: LIVER ISSUE Allergies No Known Allergies Allergy (Verified 11/15/24 14:23) Medications ???Medication ???Instructions ???Recorded ???Confirmed ???Type valacyclovir 1 gram tablet 1,000 mg PO QDAY 12/12/24 12/12/24 History PFSH Medical History Impingement of right shoulder Right shoulder pain Family History Mother Cancer Grandmother Cancer Social History Smoking Status: Never smoker alcohol intake: current alcohol intake frequency: a few times a week what type of physical activity do you participate in: other details: lyudmila HPI HPI Details: POLLO CARRENO, is a 39 F who presents to the office today for f/u from ER on 11/15/24 for R side Abd pain x 1 week. 38-year-old female with PMH of prediabetes/diabetes presents with right sided abdominal pain x 1 week. The abdominal pain was intermittent but became constant over the last 4 days and she feels bloated. It is mainly in the right upper and mid abdomen. She has nausea with eating and drinking but no vomiting. She has chronic constipation. She states she is prediabetic but was just told her sugars were elevated to the threshold of diabetes and started Ozempic shots 3 weeks ago and thinks this worsened her constipation. She is having small pebble-like bowel movements every other day. She is passing gas. She has no history of abdominal surgery or bowel obstruction. She tried a probiotic and 2 doses of MiraLAX without improvement. She denies frequent alcohol use or smoking. She states recently her liver enzymes showed a high ALT so she had a right upper quadrant ultrasound with a normal gallbladder but liver nodules with her supposed to be further evaluated by a PET scan next week. OV 12/12/24 Pt here to f/u from ER 11/2024. Pt reports constipation, R side abdominal pain, gas and bloating. Pt reports a formed bm daily. Denies bloody stools, n/v/d. Pt reports no prior hx of colonoscopy or EGD. Reports she still has gallbladder. Reports she is no longer taking Ozempic and that seems to help with her constipation. Takes valacyclovir daily. 11/20/24- XR Abd for constipation. -Moderate constipation 11/15/24-Abd/Pelvis CT -Hepatic steatosis. 4 cm partially enhancing lobular lesion along the peripheral left hepatic lobe. Two additional subtle enhancing lesions in the right hepatic lobe, largest measuring 3 cm. Spleen, pancreas and adrenal glands are intact. Gallbladder is satisfactory. No significant biliary ductal dilation. Kidneys enhance symmetrically. No suspicious renal mass, calculi or hydronephrosis. Urinary bladder is intact. Uterus is present. No bowel obstruction, 11/05/24-Abd limited w/elastography -MODERATE TO SEVERE HEPATIC FIBROSIS Multiple hypoechoic nodules scattered throughout the liver as described. Fatty infiltration of the liver. Multiple hypoechoic solid nodules are seen throughout. The largest measures 4.7 cm 4.1 cm 3.5 cm. Elastography Med: 8.4 kPa ROS Const Constitutional: No fatigue, fever(s) or weight change ENT ENT: No difficulty swallowing Gastro GI: Positive for abdominal pain, bloating, change in bowel habits, constipation, heartburn and excessive flatus; No belching, change in stool character, coffee ground emesis, cramping, diarrhea, difficulty swallowing, feeling full early, incontinent of stools, Vomiting blood/hematemesis, Blood in stool, loose stools, Black,tarry stools, nausea/dyspepsia, pa (more content not included)... Normal [facility] Abd Inc Decub and/or Erecton 11-20-2024 Abd Inc Decub and/or Erect [facility] Imaging Services [address] [place] [id number] Abd Inc Decub and/or Erect MR#: [id number] Acct: [id number] Name: POLLO CARRENO Rep #: [id number] : 1985 F 38 From: Thierry Loving MD PCP: Dr. Cleo Joseph DO Status: DEP AMB Study: Abd Inc Decub and/or Erect Date of Exam: 11/20 Exam# [id number] Ordering Dr: Cleo Joseph DO EXAM: XR Abdomen, 1 View CLINICAL INDICATION: EVAL AMOUNT OF CONSTIPATION TECHNIQUE: Frontal supine view of the abdomen/pelvis. COMPARISON: No relevant prior studies available. FINDINGS: GASTROINTESTINAL TRACT: Moderate constipation. No dilation. BONES/JOINTS: Unremarkable. No acute fracture. RAD/Abd Inc Decub and/or Erect IMPRESSION: Moderate constipation. Reading [facility] CC: Dr. Cleo Joseph, Lumber Racker: Signed Normal [facility] PET/CT Tumor Base -Thigh Ini ton 11-18-2024 PET/CT Tumor Base -Thigh Init [facility] Imaging Services [address] [place] [address] PET/CT Tumor Base -Thigh Init MR#: [id number] Acct: [id number] Name: POLLO CARRENO Rep #: [id number] : 1985 F 38 From: Ford Chang PCP: Dr. Cleo Joseph DO Status: REG CLI Study: PET/CT Tumor Base -Thigh Init Date of Exam: Exam# [id number] Ordering Dr: Cleo Joseph DO EXAM: PET/CT TUMOR BASE -THIGH INIT CLINICAL HISTORY: Multiple hepatic nodules noted on right upper quadrant abdominal ultrasound of 11/05/2024. COMPARISON: Right upper quadrant abdominal ultrasound of 11/05/2024 TECHNIQUE: Whole-body F-18 FDG PET-CT. Dose: 13.184 mCi F-18 FDG intravenous. FINDINGS: Head and neck: No focus of abnormal hypermetabolic activity is seen. Chest: No focus of abnormal hypermetabolic activity is seen. Abdomen and pelvis: No focus of abnormal hypermetabolic activity seen, including within the reportedly concerning liver. Bones: No focus of abnormal hypermetabolic activity is seen. Additional: None. PET/PET/CT Tumor Base -Thigh Init IMPRESSION: No focus of abnormal hypermetabolic activity is seen to suggest the presence of malignancy. Reading Location: [address] CC: Dr. Cleo Joseph DO Lumber Racker: Signed Normal [facility] Positron emission tomography scan reportOrdered By: Ford Juarez on 11-18-2024 PT Unspecified body region [facility] Imaging Services [address] [facility] [place] [address] PET/CT Tumor Base -Thigh Init MR#: [id number] Acct: [id number] Name: POLLO CARRENO Rep #: [id number] : 1985 F 38 From: Pancho Juarez MD PCP: Dr. Cleo Joseph, DO Status: RE G CLI Study:PET/CT Tumor Base -Thigh Init Date of E xam: 11/18/24 Exam# [id number] Ordering Dr: Evangelina Joseph DO EXAM: PET/CT TUMOR BASE -THIGH INIT CLINICAL HISTORY: Multiple hepatic nodules noted on right upper quadrant abdominal ultrasound of 11/05/2024. COMPARISON: Right upper quadrant abdominal ultrasound of 11/05/2024 TECHNIQUE: Whole-body F-18 FDG PET-CT. Dose: 13.184 mCi F-18 FDG intravenous. FINDINGS: Head and neck: No focus of abnormal hypermetabolic activity is seen. Chest: No focus of abnormal hypermetabolic activity is seen. Abdomen and pelvis: No focus of abnormal hypermetabolic activity seen, includingwithin the reportedly concerning liver. Bones: No focus of abnormal hypermetabolic activity is seen. Additional: None. PET/PET/CT Tumor Base -Thigh Init IMPRESSION: No focus of abnormal hypermetabolic activity is seen to suggest the presence of malignancy. Reading Location: [address] CC: Dr. Cleo Joseph, ~ Lumber Racker: Signed [facility] Abdomen/Pelvis W IV Cont ONL Yon 11-15-2024 Abdomen/Pelvis W IV Cont ONLY [facility] Imaging Services [address] [place], [place] [id number] Abdomen/Pelvis W IV Cont ONLY MR#: [id number] Acct: [id number] Name: POLLO CARRENO Rep #: [id number] : 1985 F 38 From: Terrance Driver PCP: Dr. Cleo Joseph, DO Status: REG ER Study: Abdomen/Pelvis W IV Cont ONLY Date of Exam: Exam# [id number] Ordering Dr: Sadie Sanders PROCEDURE: CT abdomen pelvis with IV contrast REASON FOR EXAM: Right-sided abdominal pain TECHNIQUE: Multiple contiguous axial images of the abdomen and pelvis were obtained after the administration of intravenous contrast. Two-dimensional coronal and sagittal reformatted images were reconstructed. Low-dose imaging technique was utilized. COMPARISON: None FINDINGS: Lung bases are clear. Hepatic steatosis. 4 cm partially enhancing lobular lesion along the peripheral left hepatic lobe. Two additional subtle enhancing lesions in the right hepatic lobe, largest measuring 3 cm. Spleen, pancreas and adrenal glands are intact. Gallbladder is satisfactory. No significant biliary ductal dilation. Kidneys enhance symmetrically. No suspicious renal mass, calculi or hydronephrosis. Urinary bladder is intact. Uterus is present. No bowel obstruction, focal bowel wall thickening or significant perienteric inflammation. Normal appendix. No pelvic free fluid. No free air. No abdominal aortic aneurysm or suspicious adenopathy. Superficial soft tissues are intact. No acute osseous abnormality. CT/Abdomen/Pelvis W IV Cont ONLY IMPRESSION: 1. No acute process. 2. Incompletely characterized enhancing lesions in the right and left hepatic lobes. Recommend further evaluation with nonemergent contrast-enhanced MRI. Reading Location: [facility] CC: Dr. Cleo Joseph DO; MARIA E Ford Lumber Racker: Signed Normal [facility] Absolute lymphocyte countOrd ered By: Sadie Sanders on 11-15-2024 Lymphocytes Auto (Unsp spec) [#/Vol] 2.54 10*3/uL 0.83-4.51 [facility] Absolute neutrophil countOrd ered By: Sadie Sanders on 11-15-2024 Neutrophils (Bld) [#/Vol] 5.2 10*3/uL 2.0-7.7 [facility] Anion gap in Serum or Plasma Ordered By: Sadie Sanders on 11-15-2024 Anion gap [Moles/Vol] 12 mmol/L 01-15 [facility] Automated lymphocyte count a s percentage of total leukocytesOrdered By: Sadie Sanders on 11-15-2024 Lymphocytes/100 WBC Auto (Unsp spec) 30.0 % - [facility] BUN/creatinine ratioOrdered By: Sadie Sanders on 11-15-2024 Urea nitrogen/Creatinine [Mass ratio] 14.0 mg/mg - [facility] Basophil percentageOrdered B y: Sadie Sanders on 11-15-2024 Basophils/100 WBC (Bld) 0.4 % 0-1 [facility] Beta HCG ( test) Ql Ordered By: Sadie Sanders on 11-15-2024 Serum Test, Qualitative Negative [facility] Bilirubin Test strip Ql (U)O rdered By: Sadie Sanders on 11-15-2024 Bilirubin Ql (U) Negative Negative [facility] Bilirubin, totalOrdered By: Sadie Sanders on 11-15-2024 Bilirubin [Mass/Vol] 0.39 mg/dL 0.00-1.30 [facility] CBC W/Diff, Automatedon 11-01 Absolute Lymph 2.54 X10 3/uL Normal 0.83-4.51 [facility] Comment on above: Performed By: #### L 700.6800, L100.0100, L501.2450, L500.4050 #### [facility] Laboratory [address] [place], [address] Absolute Neut 5.2 X10 3/uL Normal 2.0-7.7 [facility] Comment on above: Performed By: #### L 700.6800, L100.0100, L501.2450, L500.4050 #### [facility] Laboratory [address] [place], [address] Basophils/100 WBC (Bld) 0.4 % Normal 0-1 [facility] Comment on above: Performed By: #### L 700.6800, L100.0100, L501.2450, L500.4050 #### [facility] Laboratory [address] [place], [address] Eosinophils/100 WBC (Bld) 0.4 % Normal 0-5 [facility] Comment on above: Performed By: #### L 700.6800, L100.0100, L501.2450, L500.4050 #### [facility] Laboratory [address] [place], [address] Erythrocyte distribution width (RBC) [Ratio] 12.9 % Normal 11.6-14.6 [facility] Comment on above: Performed By: #### L 700.6800, L100.0100, L501.2450, L500.4050 #### [facility] Laboratory [address] [place], [address] Hematocrit (Bld) [Volume fraction] 44.5 % Normal 37-47 [facility] Comment on above: Performed By: #### L 700.6800, L100.0100, L501.2450, L500.4050 #### [facility] Laboratory [address] [place], [address] Hemoglobin (Bld) [Mass/Vol] 14.5 g/dL Normal 12.0-15.0 [facility] Comment on above: Performed By: #### L 700.6800, L100.0100, L501.2450, L500.4050 #### [facility] Laboratory [address] [place], [address] IG% 0.400 Normal 0.0-0.9 [facility] Comment on above: Result Comment: IG% - Immature Granulocytes (promyelocytes, myelocytes and metamyelocytes) > 1% indicates that a LEFT SHIFT is Present. Performed By: #### L 700.6800, L100.0100, L501.2450, L500.4050 #### [facility] Laboratory [address] [place], [address] Lymphocytes/100 WBC (Bld) 30.0 % Normal 19-41 [facility] Comment on above: Performed By: #### L 700.6800, L100.0100, L501.2450, L500.4050 #### [facility] Laboratory [address] [place], [address] MCH (RBC) [Entitic mass] 30.5 pg Normal 27.0-32.0 [facility] Comment on above: Performed By: #### L 700.6800, L100.0100, L501.2450, L500.4050 #### [facility] Laboratory [address] [place], [address] MCHC (RBC) [Mass/Vol] 32.6 g/dL Normal 32-36 [facility] Comment on above: Performed By: #### L 700.6800, L100.0100, L501.2450, L500.4050 #### [facility] Laboratory [address] [place], [address] MCV (RBC) [Entitic vol] 93.7 fL Normal 81-99 [facility] Comment on above: Performed By: #### L 700.6800, L100.0100, L501.2450, L500.4050 #### [facility] Laboratory [address] [place], [address] Monocytes/100 WBC (Bld) 7.8 % Normal 0-10 [facility] Comment on above: Performed By: #### L 700.6800, L100.0100, L501.2450, L500.4050 #### [facility] Laboratory [address] [place], [address] Neutrophils/100 WBC (Bld) 61.0 % Normal 47-70 [facility] Comment on above: Performed By: #### L 700.6800, L100.0100, L501.2450, L500.4050 #### [facility] Laboratory [address] [place], [address] Nucleated RBC (Bld) [#/Vol] 0 10*3/uL Normal 0-5 [facility] Comment on above: Performed By: #### L 700.6800, L100.0100, L501.2450, L500.4050 #### [facility] Laboratory [address] [place], [address] Platelet mean volume (Bld) [Entitic vol] 10.1 fL Normal 6.2-12.0 [facility] Comment on above: Performed By: #### L 700.6800, L100.0100, L501.2450, L500.4050 #### [facility] Laboratory [address] [place], [address] Platelets (Bld) [#/Vol] 268 10*3/uL Normal 150-450 [facility] Comment on above: Performed By: #### L 700.6800, L100.0100, L501.2450, L500.4050 #### [facility] Laboratory [address] [place], [address] RBC (Bld) [#/Vol] 4.75 10*6/uL Normal 4.2-5.4 [facility] Comment on above: Performed By: #### L 700.6800, L100.0100, L501.2450, L500.4050 #### [facility] Laboratory [address] [place], [address] RDW SD 44.3 fl High 35.1-43.9 [facility] Comment on above: Performed By: #### L 700.6800, L100.0100, L501.2450, L500.4050 #### [facility] Laboratory [address] [place], [address] WBC (Bld) [#/Vol] 8.5 10*3/uL Normal 4.4-11.0 [facility] Comment on above: Performed By: #### L 700.6800, L100.0100, L501.2450, L500.4050 #### [facility] Laboratory [address] [place], [address] Carbon dioxide, total [Moles /volume] in Central venous bloodOrdered By: Sadie Sanders on 11-15-2024 CO2 [Moles/Vol] 23.8 mmol/L 21.0-32.0 [facility] Chloride assayOrdered By: Iris Sanders on 11-15-2024 Chloride [Moles/Vol] 103 mmol/L 98-108 [facility] Comprehensive Metabolic Prof ilon 11-15-2024 Albumin [Mass/Vol] 4.2 g/dL Normal 3.5-5.0 [facility] Comment on above: Performed By: #### L 700.6800, L100.0100, L501.2450, L500.4050 #### [facility] Laboratory [address] [place], [address] Albumin/Globulin [Mass ratio] 1.3 {ratio} Normal 0.9-2.4 [facility] Comment on above: Performed By: #### L 700.6800, L100.0100, L501.2450, L500.4050 #### [facility] Laboratory [address] [place], [address] ALK PHOS 90 U/L Normal 35-104 [facility] Comment on above: Performed By: #### L 700.6800, L100.0100, L501.2450, L500.4050 #### [facility] Laboratory [address] [place], [address] ALT [Catalytic activity/Vol] 32 U/L Normal <=34 [facility] Comment on above: Performed By: #### L 700.6800, L100.0100, L501.2450, L500.4050 #### [facility] Laboratory [address] [place], [address] AST [Catalytic activity/Vol] 21 U/L Normal <=31 [facility] Comment on above: Performed By: #### L 700.6800, L100.0100, L501.2450, L500.4050 #### [facility] Laboratory [address] [place], [address] Bilirubin [Mass/Vol] 0.39 mg/dL Normal 0.00-1.30 [facility] Comment on above: Performed By: #### L 700.6800, L100.0100, L501.2450, L500.4050 #### [facility] Laboratory [address] [place], [address] BUN/CRE 14.0 RATIO Normal 10-20 [facility] Comment on above: Performed By: #### L 700.6800, L100.0100, L501.2450, L500.4050 #### [facility] Laboratory [address] [place], [address] Calcium [Mass/Vol] 9.3 mg/dL Normal 7.6-11.0 [facility] Comment on above: Performed By: #### L 700.6800, L100.0100, L501.2450, L500.4050 #### [facility] Laboratory [address] [place], [address] Chloride [Moles/Vol] 103 mmol/L Normal 98-108 [facility] Comment on above: Performed By: #### L 700.6800, L100.0100, L501.2450, L500.4050 #### [facility] Laboratory [address] [place], [address] CO2 [Moles/Vol] 23.8 mmol/L Normal 21.0-32.0 [facility] Comment on above: Performed By: #### L 700.6800, L100.0100, L501.2450, L500.4050 #### [facility] Laboratory [address] [place], [address] Creatinine [Mass/Vol] 0.90 mg/dL Normal 0.70-1.20 [facility] Comment on above: Performed By: #### L 700.6800, L100.0100, L501.2450, L500.4050 #### [facility] Laboratory [address] [place], [address] ECRCL 121.22 ml/min Normal 50-250 [facility] Comment on above: Performed By: #### L 700.6800, L100.0100, L501.2450, L500.4050 #### [facility] Laboratory [address] [place], [address] GAP 12 Normal 5-15 [facility] Comment on above: Performed By: #### L 700.6800, L100.0100, L501.2450, L500.4050 #### [facility] Laboratory [address] [place], [address] GFR/1.73 sq M.predicted among non-blacks MDRD (S/P/Bld) [Vol rate/Area] 83 mL/min/{1.73_m2} Normal >60 [facility] Comment on above: Result Comment: mL/m in/1.73m2 CKD-EPI Creatinine Equation (2020) Performed By: #### L 700.6800, L100.0100, L501.2450, L500.4050 #### [facility] Laboratory [address] [place], [address] Globulin (S) [Mass/Vol] 3.2 g/dL Normal 2.2-4.2 [facility] Comment on above: Performed By: #### L 700.6800, L100.0100, L501.2450, L500.4050 #### [facility] Laboratory [address] [place], [address] Glucose [Mass/Vol] 102 mg/dL High 70-99 [facility] Comment on above: Performed By: #### L 700.6800, L100.0100, L501.2450, L500.4050 #### [facility] Laboratory [address] [place], [address] Potassium [Moles/Vol] 3.8 mmol/L Normal 3.3-5.1 [facility] Comment on above: Performed By: #### L 700.6800, L100.0100, L501.2450, L500.4050 #### [facility] Laboratory [address] [place], [address] Sodium [Moles/Vol] 139 mmol/L Normal 133-145 [facility] Comment on above: Performed By: #### L 700.6800, L100.0100, L501.2450, L500.4050 #### [facility] Laboratory [address] [place], [address] T PROT 7.4 g/dL Normal 5.9-8.4 [facility] Comment on above: Performed By: #### L 700.6800, L100.0100, L501.2450, L500.4050 #### [facility] Laboratory [address] [place], [address] Urea nitrogen [Mass/Vol] 13 mg/dL Normal 4-19 [facility] Comment on above: Performed By: #### L 700.6800, L100.0100, L501.2450, L500.4050 #### [facility] Laboratory [address] [place], [address] Emergency Department Summary on 11-15-2024 Emergency Department Summary [facility] Medical Records Department [address] [place] [address] Emergency Department Summary 11/15/24 MR#: [id number] Acct: [id number] Name: POLLO CARRENO Rep #: [id number] : 1985 38 From: Sadie SANDERSON PCP: Dr. Cleo Joseph, DO Status:DEP ER Location: ED HPI History of Present Illness Chief Complaint: Abd Pain Narrative Narrative: 38-year-old female with PMH of prediabetes/diabetes presents with right sided abdominal pain x 1 week. The abdominal pain was intermittent but became constant over the last 4 days and she feels bloated. It is mainly in the right upper and mid abdomen. She has nausea with eating and drinking but no vomiting. She has chronic constipation. She states she is prediabetic but was just told her sugars were elevated to the threshold of diabetes and started Ozempic shots 3 weeks ago and thinks this worsened her constipation. She is having small pebble-like bowel movements every other day. She is passing gas. She has no history of abdominal surgery or bowel obstruction. She tried a probiotic and 2 doses of MiraLAX without improvement. She denies frequent alcohol use or smoking. She states recently her liver enzymes showed a high ALT so she had a right upper quadrant ultrasound with a normal gallbladder but liver nodules with her supposed to be further evaluated by a PET scan next week. [facility] Medical History (Updated 11/15/24 @ 15:29 by MARIA E Ford) Impingement of right shoulder Right shoulder pain Home Medications ???Medication ???Instructions ???Recorded ???Last Taken ???Type norethindrone 1 mg-ethinyl 1 tab PO QDAY 02/28/24 Unknown His tory estradiol 10 mcg (24)-iron 10 mcg(2) tablet (Lo Loestrin Fe) Allergy/AdvReac Type Severity Reaction Status Date / Time No Known Allergies Allergy Verified 11/15/24 14:23 Family History (Updated 02/28/24 @ 11:09 by Jessica Collins) Mother Cancer Grandmother Cancer Social History (Updated 02/28/24 @ 11:13 by Jessica Collins) Smoking Status: Never smoker alcohol intake: current alcohol intake frequency: a few times a week what type of physical activity do you participate in: other details: lyudmila ROS ROS ED ROS Narrative Constitutional: Negative for fever, chills, malaise. CVS: Negative for chest pain. Respiratory: Negative for shortness of breath. GI: Positive for abdominal pain, nausea, constipation. Negative for vomiting, diarrhea, melena, hematochezia. : Negative for dysuria, hematuria or frequency. EXAM Physical Exam Narrative Exam Narrative: CONST: Patient sitting in no acute distress. EYES: Normal inspection. NECK: Normal inspection. RESP: No respiratory distress, CTAB. CVS: Regular rate and rhythm, no murmur, no gallop. ABD: Soft with mild tenderness right mid and upper abdomen, no guarding or rebound, nondistended. Negative Cheney sign. Back: Normal inspection, no CVA tenderness. SKIN: Color normal, no rash, warm, dry, intact. EXTREMITIES: Normal appearance, no pedal edema. NEURO: Alert and answering questions appropriately. PSYCH: Normal affect. Const Vital Signs: 11/15/24 14:23 Temperature 97 F L Temperature Source Temporal Pulse Rate 105 H Respiratory Rate 20 H Blood Pressure 148/97 H Blood Pressure Mean 114 Pulse Ox 99 Oxygen Delivery Method Room Air Physical Exam Const Vital Signs: 11/15/24 14:23 Temperature 97 F L Temperature Source Temporal Pulse Rate 105 H Respiratory Rate 20 H Blood Pressure 148/97 H Blood Pressure Mean 114 Pulse Ox 99 Oxygen Delivery Method Room Air MDM MDM MDM Narrative Medical decision making narrative: Differential includes but not limited to GERD/PUD, gallbladder etiology, pancreatitis, constipation, obstruction, medication induced gastroparesis 38-year-old female presents with nausea, right sided abdominal pain, and acute on chronic constipation x 1 week. She appears well and nontoxic. HR is 105 with otherwise stable vital signs. Normal cardiopulmonary exam. Abdomen is soft right upper and mid abdominal tenderness. No peritoneal signs. Bowel sounds x 4 present. CBC, CMP, lipase are all unremarkable. Serum negative. Urinalysis negative for infection. CT scan shows the known liver lesions with no other acute findings. She already has a PET scan scheduled to further evaluate the liver lesions. 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 She declined any pain or antiemetic treatment here or for home. She states she will stop taking the Ozempic and discuss with her primary care provider. Return precautions were discussed and she was discharged in stable condition. External records reviewed: 11/05/2024 RUQ ultrasound Multiple liver nodules scattered thr (more content not included)... Normal [facility] Eosinophil percentageOrdered By: Sadie Sanders on 11-15-2024 Eosinophils/100 WBC (Bld) 0.4 % 0-5 [facility] Epithelial cells.squamous LM Ql (Urine sed)Ordered By: Sadie Sanders on 11-15-2024 Epithelial cells.squamous LM.HPF (Urine sed) [#/Area] 0 /[HPF] 5-10 [facility] Erythrocyte distribution wid th ratioOrdered By: Sadie Sanders on 11-15-2024 Erythrocyte distribution width (RBC) [Ratio] 12.9 % 11.6-14.6 [facility] Erythrocyte distribution wid th standard deviationOrdered By: Sadie Sanders on 11-15-2024 Erythrocyte distribution width (RBC) [Entitic vol] 44.3 fL High 35.1-43.9 [facility] Erythrocyte distribution width (RBC) [Ratio] 44.3 fl High 35.1-43.9 [facility] Estimation of creatinine lilly aranceOrdered By: Sadie Sanders on 11-15-2024 Estimated Creatinine Clearance Calc 121.22 ml/min 50-250 [facility] GFR/1.73 sq M.predicted monse g non-blacks MDRD (S/P/Bld) [Vol rate/Area]Ordered By: Sadie Sanders on 11-15-2024 Estimated GFR (MDRD) Non-Af Amer 83 >60 [facility] Comment on above: mL/min/1.73m2 CKD-EP I Creatinine Equation (2020) Glomerular filtration rate ( GFR) estimation/1.73 sq m using serum, plasma, or whole bOrdered By: Sadei Sanders on 11-15-2024 GFR/1.73 sq M.predicted among non-blacks MDRD (S/P/Bld) [Vol rate/Area] 83 mL/min/{1.73_m2} >60 [facility] Comment on above: mL/min/1.73m2 CKD-EP I Creatinine Equation (2020) Glucose Ql (U)Ordered By: Iris Sanders on 11-15-2024 Urine Glucose (UA) Normal mg/dl Normal [facility] Hematocrit Auto (Bld) [Volum e fraction]Ordered By: Sadie Sanders on 11-15-2024 Hematocrit (Bld) [Volume fraction] 44.5 % 37-47 [facility] Hemoglobin measurementOrdere d By: Sadie Sanders on 11-15-2024 Hemoglobin (Bld) [Mass/Vol] 14.5 g/dL 12.0-15.0 [facility] Immature granulocytes/100 WB C Auto (Bld)Ordered By: Sadie Sanders on 11-15-2024 Immature granulocytes/100 WBC (Bld) 0.400 % 0.0-0.9 [facility] Comment on above: IG% - Immature Granu locytes (promyelocytes, myelocytes and metamyelocytes) > 1% indicates that a LEFT SHIFT is Present. Ketones Test strip Ql (U)Ord ered By: Sadie Sanders on 11-15-2024 Ketones Ql (U) Negative Negative [facility] Laboratory - Chemistry and C hemistry - challengeOrdered By: Sadie Sanders on 11-15-2024 AST [Catalytic activity/Vol] 21 U/L <32 [facility] Lipaseon 11-15-2024 Lipase [Catalytic activity/Vol] 28 U/L Normal 13-75 [facility] Comment on above: Result Comment: Clarisse garcia note: LIPASE revised reference range effective 22. New Lipase methodology. Expected to produce lower values than the previous assay method. NEW Reference Range: 13 - 75 U/L Performed By: #### L 700.6800, L100.0100, L501.2450, L500.4050 #### [facility] Laboratory [address] [place], [address] Lipase measurementOrdered By : Sadie Sanders on 11-15-2024 Lipase [Catalytic activity/Vol] 28 U/L 13-75 [facility] Comment on above: Please note:LIPASE r evised reference range effective 22. New Lipase methodology. Expected to produce lower values than the previous assay method. NEW Reference Range: 13 - 75 U/L Lymphocytes Auto (Unsp spec) [#/Vol]Ordered By: Sadie Sanders on 11-15-2024 Lymphocytes (Bld) [#/Vol] 2.54 10*3/uL 0.83-4.51 [facility] Lymphocytes/100 WBC Auto (Un sp spec)Ordered By: Sadie Sanders on 11-15-2024 Lymphocytes/100 WBC (Bld) 30.0 % 19-41 [facility] MCV (mean corpuscular volume ) determinationOrdered By: Sadie Sanders on 11-15-2024 MCV (RBC) [Entitic vol] 93.7 fL 81-99 [facility] Mean corpuscular hemoglobin (MCH) determinationOrdered By: Sadie Sanders on 11-15-2024 MCH (RBC) [Entitic mass] 30.5 pg 27.0-32.0 [facility] Mean corpuscular hemoglobin concentration (MCHC) determinationOrdered By: Sadie Sanders on 11-15-2024 MCHC (RBC) [Mass/Vol] 32.6 g/dL 32-36 [facility] Mean platelet volume determi nationOrdered By: Sadie Sanders on 11-15-2024 Platelet mean volume (Bld) [Entitic vol] 10.1 fL 6.2-12.0 [facility] Microscopic analysis of urin e for red blood cells (RBC)Ordered By: Sadie Sanders on 11-15-2024 Microscopic analysis of urine for red blood cells (RBC) 0 SEEN /hpf 0-5 [facility] Urine RBC 0 SEEN /hpf 0-5 [facility] Monocyte percentageOrdered B y: Sadie Sanders on 11-15-2024 Monocytes/100 WBC (Bld) 7.8 % 0-10 [facility] Mucus LM Ql (Urine sed)Order ed By: Sadie Sanders on 11-15-2024 Mucus Ql (Urine sed) 0 SEEN /hpf [facility] Neutrophil percentageOrdered By: Sadie Sanders on 11-15-2024 Neutrophils/100 WBC (Bld) 61.0 % 47-70 [facility] Nitrite Test strip Ql (U)Ord ered By: Sadie Sanders on 11-15-2024 Nitrite Ql (U) Negative Negative [facility] Nucleated red blood cell per centageOrdered By: Sadie Sanders on 11-15-2024 Nucleated RBC/100 WBC (Bld) [Ratio] 0 % 0-5 [facility] Platelet countOrdered By: Iris Sanders on 11-15-2024 Platelets (Bld) [#/Vol] 268 10*3/uL 150-450 [facility] Potassium (Unsp spec) [Mass/ Vol]Ordered By: Sadie Sanders on 11-15-2024 Potassium [Moles/Vol] 3.8 mmol/L 3.3-5.1 [facility] Potassium measurement (mass/ volume)Ordered By: Sadie Sanders on 11-15-2024 Potassium (Unsp spec) [Mass/Vol] 3.8 mmol/L 3.3-5.1 [facility] ,Serum,hCG Quali.on 11-15-2024 HCG, SERUM QUAL Negative Normal [facility] Comment on above: Performed By: #### L 700.6800, L100.0100, L501.2450, L500.4050 #### [facility] Laboratory [address] [place], [address] Protein Test strip Ql (U)Ord ered By: Sadie Sanders on 11-15-2024 Protein Ql (U) 15 mg/dl High Negative [facility] RBC Auto (Bld) [#/Vol]Ordere d By: Sadie Sanders on 11-15-2024 RBC (Bld) [#/Vol] 4.75 10*6/uL 4.2-5.4 [facility] Serum beta-hCG test, qualita tiveOrdered By: Sadie Sanders on 11-15-2024 Beta HCG ( test) Ql Negative [facility] Serum creatinine measurement (mass/volume)Ordered By: Sadie Sanders on 11-15-2024 Creatinine [Mass/Vol] 0.90 mg/dL 0.70-1.20 [facility] Serum globulin measurementOr dered By: Sadie Sanders on 11-15-2024 Globulin (S) [Mass/Vol] 3.2 g/dL 2.2-4.2 [facility] Serum glucose measurement (m ass/volume)Ordered By: Sadie Sanders on 11-15-2024 Glucose [Mass/Vol] 102 mg/dL High 70-99 [facility] Serum or plasma alanine pantoja otransferase (ALT) measurementOrdered By: Sadie Sanders on 11-15-2024 ALT [Catalytic activity/Vol] 32 U/L <35 [facility] Serum or plasma albumin domenico urement (mass/volume)Ordered By: Sadie Sanders on 11-15-2024 Albumin [Mass/Vol] 4.2 g/dL 3.5-5.0 [facility] Serum or plasma albumin/glob ulin mass ratioOrdered By: Sadie Sanders on 11-15-2024 Albumin/Globulin [Mass ratio] 1.3 {ratio} 0.9-2.4 [facility] Serum or plasma alkaline dolly sphatase measurementOrdered By: Sadie Sanders on 11-15-2024 ALP [Catalytic activity/Vol] 90 U/L 35-104 [facility] Serum or plasma calcium domenico urement (mass/volume)Ordered By: Sadie Sanders on 11-15-2024 Calcium [Mass/Vol] 9.3 mg/dL 7.6-11.0 [facility] Serum or plasma urea nitroge n measurement (mass/volume)Ordered By: Sadie Sanders on 11-15-2024 Urea nitrogen [Mass/Vol] 13 mg/dL 4-19 [facility] Sodium levelOrdered By: Sadie Sanders on 11-15-2024 Sodium [Moles/Vol] 139 mmol/L 133-145 [facility] Squamous epithelial cells de tection in urine sediment by light microscopyOrdered By: Sadie Sanders on 11-15-2024 Epithelial cells.squamous LM Ql (Urine sed) 0 SEEN /hpf 5-10 [facility] Total proteinOrdered By: Charissa Sanders on 11-15-2024 Protein [Mass/Vol] 7.4 g/dL 5.9-8.4 [facility] Urinalysis, Completeon 11-15 RBC 0 SEEN Normal 0-5 [facility] Comment on above: Order Comment: KATHERIN ESPINOSAOR TO SPECIFY Performed By: #### L 400.0001 #### [facility] [address] [place], [place], [id number] BACTERIA 0 SEEN Normal None Seen [facility] Comment on above: Order Comment: KATHERIN ESPINOSAOR TO SPECIFY Performed By: #### L 400.0001 #### [facility] Laboratory [address] [place], [address] EPI,SQUAMOUS 0 SEEN Normal 5-10 [facility] Comment on above: Order Comment: KATHERIN ESPINOSAOR TO SPECIFY Performed By: #### L 400.0001 #### [facility] Laboratory [address] [place], [address] Mucus Ql (Urine sed) 0 SEEN Normal [facility] Comment on above: Order Comment: COLLE CTOR TO SPECIFY Performed By: #### L 400.0001 #### [facility] Laboratory [address] [place], [place], [id number] WBC 0 SEEN Normal 0-5 [facility] Comment on above: Order Comment: KATHERIN CTOR TO SPECIFY Performed By: #### L 400.0001 #### [facility] [address] [place], [place], [id number] Urine blood detectionOrdered By: Sadie Sanders on 11-15-2024 Urine Occult Blood Negative Negative [facility] Urine clarityOrdered By: Charissa Sanders on 11-15-2024 Clarity (U) Clear Clear [facility] Urine color determinationOrd ered By: Sadie Sanders on 11-15-2024 Color (U) Straw Yellow [facility] Urine glucose detectionOrder ed By: Sadie Sanders on 11-15-2024 Glucose Ql (U) Normal mg/dl Normal [facility] Urine leukocyte esterase det ection by dipstickOrdered By: Sadie Sanders on 11-15-2024 Leukocyte esterase Test strip Ql (U) Negative Negative [facility] Urine pHOrdered By: Sadie reno on 11-15-2024 pH (U) 7.0 [pH] 5.0 - 8.0 [facility] Urine sediment bacteria coun t by microscopy (number/high power field)Ordered By: Sadie Sanders on 11-15-2024 Bacteria LM.HPF (Urine sed) [#/Area] 0 /[HPF] None Seen [facility] Urine specific gravity measu rementOrdered By: Sadie Sanders on 11-15-2024 Specific gravity (U) [Rel density] 1.005 1.002-1.03 0 [facility] Urine urobilinogen measureme ntOrdered By: Sadie Sanders on 11-15-2024 Urobilinogen Ql (U) Normal mg/dl Normal [facility] Urobilinogen Ql (U)Ordered B y: Sadie Sanders on 11-15-2024 Urine Urobilinogen Normal mg/dl Normal [facility] White blood cell (WBC) count Ordered By: Sadie Sanders on 11-15-2024 WBC (Bld) [#/Vol] 8.5 10*3/uL 4.4-11.0 [facility] White blood cell countOrdere d By: Sadie Sanders on 11-15-2024 Urine WBC 0 SEEN /hpf 0-5 [facility] White blood cell count 0 SEEN /hpf 0-5 [facility] ABD Limited w/ Elastographyo n 11-05-2024 ABD Limited w/ Elastography [facility] [address] [place] [address] ABD Limited w/ Elastography MR#: [id number] Acct: [id number] Name: POLLO CARRENO Rep #: [id number] : 1985 F 38 From: Rigoberto rocha MD PCP: Dr. Cleo Joseph, DO Status: REG CLI Study: ABD Limited w/ Elastography Date of Exam: 01/25 Exam# [id number] Ordering Dr: Cleo Joseph DO PROCEDURE: ABD LIMITED W/ ELASTOGRAPHY REASON FOR EXAM: Abnormal liver enzymes. COMPARISON: None. TECHNIQUE: Right upper quadrant abdominal ultrasound. Syed ElastQ Imaging shear wave elastography for non- invasive assessment of liver tissue stiffness. Syed EPIQ Elite. FINDINGS: LIVER: Size: Unremarkable Length: 15.9 cm Echotexture: Diffusely echogenic suggesting fatty infiltration Contour: Normal Lesions: Multiple hypoechoic solid nodules are seen throughout. The largest measures 4.7 cm 4.1 cm 3.5 cm. Metastatic disease should be ruled out. Elastography: EQI Med: 8.4 kPa EQI Med Anthony: 1.66 m/s IQR/Med: 8.2 %* GALLBLADDER: Normal COMMON BILE DUCT: Normal it measures 4 mm. PANCREAS: Normal Visualized portions of the right kidney are unremarkable. No right upper quadrant ascites. US/ABD Limited w/ Elastography IMPRESSION: MODERATE TO SEVERE HEPATIC FIBROSIS Multiple hypoechoic nodules scattered throughout the liver as described. Metastatic disease should be ruled out. Fatty infiltration of the liver. Reference Values: SRU <1.37 m/s (5.7kPa): No to mild fibrosis 1.37 m/s - 2.2 m/s: Moderate to severe fibrosis >2.2 m/s (15kPa): Significant fibrosis / cirrhosis METAVIR Score F2 or higher: 1.34 m/s (5.7kPa) F3 or higher: 1.55 m/s (7.3kPa) F4: 1.80 m/s (10kPa) * If the IQR/Med is >30%, the variance in the measurements is a large and the accuracy of the measurement may be in question. Reading Location: [id number] CC: Dr. Cleo Joseph DO Lumber Racker: Signed Normal [facility] 07-11-2024 [facility] Office Visit (OBGYWM ) ----- RAMEZPOLLO INGRAM ([id number]) 1985 F Date Time Provider Department 07/11/24 11:30 AM LESLYE BARCENAS OBGYWM During your visit today, we recorded the following information about you: Blood pressure Weight Height Last Period 124/84 127.9 kg 1.75 m 07/07/24 Leslye Barcenas APRN.[facility] 07/11/2024 11:50 AM Signed Stitch Bonding Machine Tender offered: Patient declinesLorna ABAD is a 38 year old who presents for an annual gynecologic exam without complaints. Menses: cycles every 21-24 days and 3 days of flow. Contraception: combined hormonal contraceptives HPV vaccine: No Last Pap: normal 2021 HPV: 2021 negative History of abnormal pap: Yes 2020 ASCUS HPV + colp negative Last mammogram: 2023 normal Sexually active: Not currrently OB History T0 L0 SAB0 IAB0 Ectopic0 Multiple0 Live Births0 Union Organizer History LMP: 06/25/2023, Having periods Age at Menarche: Age at First : Age at Menopause: Union Organizer History Comments: Sexual Activity: Not Currently; No partner data on record Contraception: No contraception data on record PAST MEDICAL HISTORY Diagnosis Date Genital herpes Migraine PAST SURGICAL HISTORY Procedure Laterality Date NONE FAMILY HISTORY Problem Relation Age of Onset Breast Cancer Mother No Known Problems Father No Known Problems Brother No Known Problems Brother Breast Cancer Maternal Grandmother No Known Problems Maternal Grandfather No Known Problems Paternal Grandmother No Known Problems Paternal Grandfather SOCIAL HISTORY Social History Tobacco Use Smoking status: Never Smokeless tobacco: Never Vaping Use Vaping status: Never Used Substance Use Topics Alcohol use: Yes Comment: socially Drug use: Never REVIEW OF SYSTEMS Abdomen: No abdominal pain, nausea, vomiting, diarrhea, or constipation. No bloating, early satiety, indigestion, or increased flatulence. Bladder: No dysuria, gross hematuria, urinary frequency, urinary urgency, or incontinence. Breast: No breast lumps, nipple d/c, overlying skin changes, redness or skin retraction. Allergies and current medication updated:Yes SENSITIVE EXAM: The sensitive examination was discussed with the Patient or Patient's Authorized Binder Stripper Machine. As applicable, any other physician, advance practice provider, medical student, or other health professional student that will be observing or involved in the sensitive examination for educational or training purposes was discussed with the Patient or Authorized Binder Stripper Machine. The Patient or Authorized Binder Stripper Machine has agreed to proceed with the sensitive examination. (Sensitive examination includes inspection and/or palpation of the breasts, pelvis, prostate and anorectal regions). EXAM: LMP 06/25/2023 GENERAL: pleasant, female in no apparent distress HEENT: Normocephalic, atraumatic, mucus membranes moist, and no lesions DERMATOLOGY: Normal, without lesions, non-icteric, and non-hirsute BREAST: soft, non-tender, symmetric, no dominant mass, normal nipple-areolar complex, no lymphadenopathy, and no nipple discharge CHEST: Normal inspiratory effort ABDOMEN: soft, non-tender, and no masses PELVIC: external genitalia normal, normal Bartholin's glands, urethra, [place]'s glands, no vulvar lesions, no cervical lesions, good vaginal support, physiologic discharge present, normal appearing perineal body and perianal region BIMANUAL: uterus normal size, shape and consistency, no adnexal masses, and non-tender NEURO: alert and oriented x3,exam grossly non-focal EXTREMITIES: normal ASSESSMENT/PLAN: 1) Health maintenance: Pap/HPV up to date. Mammogram ordered. Nutrition, exercise and routine health maintenance exams reviewed. Calcium/Vitamin D supplementation information provided. 2) Contraception: combined hormonal contraceptives. Contraceptive options reviewed and information provided. 3) STD screening: Declined STD check. 4) Follow up one year or sooner as needed Leslye Barcenas APRN.CNP Allergies As of Date: 07/11/2024 (No Known Allergies) Date Reviewed: 07/11/2024 Reviewed by: Leslye Barcenas APRN.WORKERS COMPENSATION CLAIMS ANALYST - Fully Assessed Reason for Visit: Well Woman [1463] Primary Visit Diagnosis:Encounter for gynecological examination (general) (routine) without abnormal findings [Z01.419] Other Visit Diagnosis:Encounter for screening mammogram for breast cancer [Z12.31] Order(s):[facility] SCREENING W CRISTHIAN [[id number]] Order #: [id number] FUTURE LO LOESTRIN FE 1 mg-10 mcg (24)/10 mcg (2)Take 1 tablet by mouth every afternoon.Disp: 84 tabletRfl: 3 Prescriptions as of 07/11/2024 - valACYclovir (VALTREX) 1 gram tablet Take 1,000 mg by mouth once daily. - rizatriptan (MAXALT) 10 mg tablet Take 10 mg by mouth as needed for migraine headache (see administration instructions). - LO LOESTRIN FE 1 mg-10 mcg (24)/10 mcg (2) (more content not included)... Normal [facility] Orthopedic Visit Reporton Orthopedic Visit Report [facility] [address] [place] [address] OFFICE VISIT Date of Service: 02/28/24 MR#: [id number] Acct: [id number] Name: POLLO CARRENO Rep #: [id number] : 1985 Provider: Dr. Victorino mckeon MD Age/Sex: 38/F [place] [facility] [place] Status: Signed with Addenda ADDENDUM by Maty Anderson on 02/28/24 at 1138 Office Procedure Documentation entered by Maty Anderson 02/28/24 11:38: Ortho Injections Injections Yes Subacromial Injection Right Is this Buy Bill?: No Details: Obtained consent for injection. Under sterile conditions, injected the patients right subacromial shoulder with 2.0mL Kenalog and 4.0mL Bupivacaine. The patient tolerated the injection well without any noted complication. Patient should call our office if redness develops, pain worsens or if they have any concerns. Office Meds Kenalog 40 mg/mL suspension for injection Performing Provider: Victorino Coleman MD Performing Location: [facility] Administered by: Victorino Coleman MD on 02/28/24 11:36 Dose Route Admin Location Dispensed Lot Number Expiration Date ND Da ufacturer 80 mg intra-articular Right shoulder 2 mL [id number] 12/02/25 9967-7101-36 [employer] Date cc: * Signed Intake Vital Signs 02/25/24 08:10 02/28/24 11:07 Height 0 in 5 ft 10 in Weight: 279 lb 6 oz BMI 40.1 Intake Visit Reasons: RIGHT ARM Accompanied by: Self Is patient in pain?: Yes Allergies No Known Allergies Allergy (Verified 02/28/24 11:08) Medications ???Medication ???Instructions ???Recorded ???Confirmed ???Type norethindrone 1 mg-ethinyl 1 tab PO QDAY 02/28/24 02/28/24 History estradiol 10 mcg (24)-iron 10 mcg(2) tablet (Lo Loestrin Fe) PFSH Medical History (Updated 02/28/24 @ 11:16 by Victorino Coleman MD) Impingement of right shoulder Right shoulder pain Family History (Updated 02/28/24 @ 11:09 by Jessica Collins) Mother Cancer Grandmother Cancer Social History (Updated 02/28/24 @ 11:13 by Jessica Collins) Smoking Status: Never smoker alcohol intake: current alcohol intake frequency: a few times a week what type of physical activity do you participate in: other details: bowling HPI RIGHT ARM Details: This documentation accurately reflects the service provided and the decisions made by me, Dr. Victorino Coleman MD 02/28/24 1044. Part of today???s visit was documented by [ ], acting as scribe. POLLO CARRENO is a 38 year old F here today for right shoulder pain. RHD. bowls. sharp pain. constant dull ache. lateral side. waking up at night. worse with doing motions. 1 year, no injury, went away, lateral side going down. pulling. worse over last 4 weeks. worse with seatbelt. and doing some cabinets renovation. [place] ice rest nsaids. Ortho Exam General General: Yes no acute distress Neurologic: Yes alert and Yes oriented x3 Psychologic: Yes reasonable and appropriate Right Shoulder Skin/Wound: Yes CDI, No ecchymosis, No erythema and No swelling Testing: Positive Hawkin's, Speed's, TTP Biceps, AROM-External Rotation at side 0-60, empty can, [place], cross arm and belly press normal; Negative Neer's, TTP AC Joint, Drop Arm or scapular winging SHOULDER: normal motor and sens to ax nerve, and MRU and AIN/PIN Active and passive forward elevation 160 degrees. Forward elevation and external rotation strength both 5/5. Supplemental Info X-rays 4 views of the right shoulder obtained demonstrate no acute abnormalities Coding Level of Care Code Attention Clinical Fellow Diagnoses Right shoulder pain M25.511 Impingement of right shoulder M25.811 Comment [id number] and CPT inject major joint Assessment and Plan Assessment and Plan (1) Right shoulder pain: Status: Acute Plan: POLLO CARRENO is a 38 year old F here today for right shoulder pain. Patient has no injury normal x-rays with positive impingement signs and symptoms good rotator cuff strength and full range of motion. This is most likely rotator cuff tendinitis/bursitis and impingement syndrome. Relatively low chance of tear of the biceps or rotator cuff tendon although this is within the differential diagnosis. Explained the diagnosis prognosis different treatment options including but not limited to rest ice anti-inflammatories activity modifications PT subacromial cortisone injections as well as MRI in the form of advanced imaging if the patient fails a trial of conservative management. Patient would like to try physical therapy as well as a cortisone injection they will follow-up in 6 weeks time or as needed. Pros and cons risks and benefits of a right shoulder subacromial steroid injection were discussed. Patient wished to proceed. Risks include (more content not included)... Normal [facility] Shoulder min 2 Viewson 02-27 Shoulder min 2 Views [facility] [address] [place] [address] Shoulder min 2 Views MR#: [id number] Acct: [id number] Name: POLLO CARRENO Rep #: [id number] : 1985 F 38 From: Michael Rico MD PCP: Dr. Cleo Joseph DO Status: DEP AMB Study: Shoulder min 2 Views Date of Exam: 02/28/24 Exam# [id number] Ordering Dr: Victorino Coleman MD [id number] STUDY: X-RAY - RIGHT SHOULDER REASON FOR EXAM: Female, 38 years old. Pain. TECHNIQUE: 4 views of the right shoulder. COMPARISON: None. FINDINGS: Normal glenohumeral articulation. Normal acromioclavicular joint. Normal acromion. Normal humeral head and visualized proximal humerus. The soft tissue structures are unremarkable. There is no demonstrated fracture. Normal visualized pulmonary apex. RAD/Shoulder min 2 Views IMPRESSION: Normal x-ray examination of the right shoulder. Electronically Signed: Michael Rico MD at 12:00 EDT Reading Location ID and State: [facility] / [place] , Service support , CC: Dr. Cleo Joseph DO; Dr. Victorino Coleman MD Lumber Racker: Signed [facility] 02-21-2024 [facility] HNO ID: [id number] Author: COORDINATOR, MAMMOGRAPHY, ? Service: ? Author Type: Physician Type: Letter Filed: 02/21/2024 10:39 Note Text: February 21, 2024 PID: [id number] Pollo Carreno [address] [place] [address] Dear Ms. Carreno, We are pleased to inform you that the results of your recent breast imaging exam on 02/21/2024 are normal. Early detection of cancer is very important. We also understand recommendations regarding breast cancer screening are controversial. Please discuss with your primary care provider which strategy is best for you and whether a mammogram is right for you. Your imaging studies and report will be kept on file at [facility] as part of your permanent medical record and are available for your continuing care. Thank you for allowing us to help in meeting your health care needs. Sincerely, Dr. Castillo Interpreting Radiologist [facility] (Normal over 40) Normal [facility] DBT Breast - bilateral brandie maryriley 02-21-2024 IMPRESSION: NEGATIVE There is no mammographic evidence of malignancy. A 1 year screening mammogram is recommended. Yifan brasher/deven:02/21/2024 10:39:05 Family Law Attorney(s): RT Pooja(R)(M), [facility] letter sent: Normal over 40 Mammogram BI-RADS: 1 Negative Multiple national specialty organizations have released breast cancer screening guidelines for women at average risk for developing breast cancer - guidelines that are based on both evidence and opinion, yet differ on when to start and how often to screen for breast cancer. With representation from Breast Imaging, Internal Medicine, Women's Health, Family Medicine, and Medical/Surgical Oncology, the [facility] has carefully reviewed the data and reached the following consensus: 1) All women should engage in shared decision-making with their providers to decide when to start and how often to screen; 2) All women should have the opportunity to start screening mammography at age 40; 3) For women ages 45-55, we recommend annual screening mammograms; 4) For women ages 55 and over, we support both the transition from an annual to a biennial interval if this aligns more with patient's values and preferences, or continuation with annual screening; 5) All women should discuss with their providers when to stop screening mammograms. Lumber Racker: Deven Transcribe Date/Time: Feb 21 2024 7:29A Dictated by: YIFAN CASTILLO MD This examination was interpreted and the report reviewed and electronically signed by: YIFAN CASTILLO MD on Feb 21 2024 10:39AM [facility] DIVISION OF RADIOLOGY * * *Final Report* * * DATE OF EXAM: Feb 21 2024 7:56AM W 0582 - [facility] SCREENING W CRISTHIAN / PROCEDURE REASON: Encounter for screening mammogram for malignant neoplasm of breast * * * * Physician Interpretation * * * * RESULT: #[id number] - JOSEF SCREENING W CRISTHIAN BILATERAL DIGITAL SCREENING MAMMOGRAM TOMOSYNTHESIS WITH CAD: 02/21/2024 HISTORY: /Patient has signed release for outside images that is scanned into syngo priors done at [facility] Encounter For Screening Mammogram For Malignant Neoplasm Of Breast /Screening Mammogram with CRISTHIAN - patient reports NO breast symptoms. RESULT: TECHNIQUE: The study was acquired using full field digital technology and interpreted from soft copy. Digital Breast Tomosynthesis (DBT) images were obtained and used to assist in the interpretation of this examination. Current study was also evaluated with a Computer Aided Detection (CAD). Comparison is made to exam dated: 02/07/2023 mammogram. There are scattered areas of fibroglandular density. No significant masses, calcifications, or other findings are seen in either breast. There has been no significant interval change. DIVISION OF RADIOLOGY Provider, [facility] - 02/21/2024 * * *Final Report* * * DATE OF EXAM: Feb 21 2024 7:56AM [facility] 0582 - [facility] SCREENING W CRISTHIAN / PROCEDURE REASON: Encounter for screening mammogram for malignant neoplasm of breast * * * * Physician Interpretation * * * * RESULT: #[id number] - JOSEF SCREENING W CRISTHIAN BILATERAL DIGITAL SCREENING MAMMOGRAM TOMOSYNTHESIS WITH CAD: 02/21/2024 HISTORY: /Patient has signed release for outside images that is scanned into syngo priors done at [facility] Encounter For Screening Mammogram For Malignant Neoplasm Of Breast /Screening Mammogram with CRISTHIAN - patient reports NO breast symptoms. RESULT: TECHNIQUE: The study was acquired using full field digital technology and interpreted from soft copy. Digital Breast Tomosynthesis (DBT) images were obtained and used to assist in the interpretation of this examination. Current study was also evaluated with a Computer Aided Detection (CAD). Comparison is made to exam dated: 02/07/2023 mammogram. There are scattered areas of fibroglandular density. No significant masses, calcifications, or other findings are seen in either breast. There has been no significant interval change. IMPRESSION IMPRESSION: NEGATIVE There is no mammographic evidence of malignancy. A 1 year screening mammogram is recommended. Yifan brasher/deven:02/21/2024 10:39:05 Family Law Attorney(s): RT Pooja(R)(M), [facility] letter sent: Normal over 40 Mammogram BI-RADS: 1 Negative Multiple national specialty organizations have released breast cancer screening guidelines for women at average risk for developing breast cancer - guidelines that are based on both evidence and opinion, yet differ on when to start and how often to screen for breast cancer. With representation from Breast Imaging, Internal Medicine, Women's Health, Family Medicine, and Medical/Surgical Oncology, the [facility] has carefully reviewed the data and reached the following consensus: 1) All women should engage in shared decision-making with their providers to decide when to start and how often to screen; 2) All women should have the opportunity to start screening mammography at age 40; 3) For women ages 45-55, we recommend annual screening mammograms; 4) For women ages 55 and over, we support both the transition from an annual to a biennial interval if this aligns more with patient's values and preferences, or continuation with annual screening; 5) All women should discuss with their providers when to stop screening mammograms. Lumber Racker: Deven Transcribe Date/Time: Feb 21 2024 7:29A Dictated by: YIFAN CASTILLO MD This examination was interpreted and the report reviewed and electronically signed by: YIFAN CASTILLO MD on Feb 21 2024 10:39AM EST [facility] Radiology Study observation (narrative) [facility] DBT Breast - bilateral scree ningOrdered By: [facility] Provider on 02-21-2024 [facility] JOSEF SCREENING W TOMOon 02-20 JOSEF SCREENING W CRISTHIAN * * *Final Report* * * DATE OF EXAM: Feb 21 2024 7:56AM [facility] 0582 - JOSEF SCREENING W CRISTHIAN / PROCEDURE REASON: Encounter for screening mammogram for malignant neoplasm of breast * * * * Physician Interpretation * * * * RESULT: #[id number] - JOSEF SCREENING W CRISTHIAN BILATERAL DIGITAL SCREENING MAMMOGRAM TOMOSYNTHESIS WITH CAD: 02/21/2024 HISTORY: /Patient has signed release for outside images that is scanned into syngo priors done at [facility] Encounter For Screening Mammogram For Malignant Neoplasm Of Breast /Screening Mammogram with CRISTHIAN - patient reports NO breast symptoms. RESULT: TECHNIQUE: The study was acquired using full field digital technology and interpreted from soft copy. Digital Breast Tomosynthesis (DBT) images were obtained and used to assist in the interpretation of this examination. Current study was also evaluated with a Computer Aided Detection (CAD). Comparison is made to exam dated: 02/07/2023 mammogram. There are scattered areas of fibroglandular density. No significant masses, calcifications, or other findings are seen in either breast. There has been no significant interval change. IMPRESSION: NEGATIVE There is no mammographic evidence of malignancy. A 1 year screening mammogram is recommended. Yifan brasher/deven:02/21/2024 10:39:05 Family Law Attorney(s): RT Pooja(R)(M), [facility] letter sent: Normal over 40 Mammogram BI-RADS: 1 Negative Multiple national specialty organizations have released breast cancer screening guidelines for women at average risk for developing breast cancer - guidelines that are based on both evidence and opinion, yet differ on when to start and how often to screen for breast cancer. With representation from Breast Imaging, Internal Medicine, Women's Health, Family Medicine, and Medical/Surgical Oncology, the [facility] has carefully reviewed the data and reached the following consensus: 1) All women should engage in shared decision-making with their providers to decide when to start and how often to screen; 2) All women should have the opportunity to start screening mammography at age 40; 3) For women ages 45-55, we recommend annual screening mammograms; 4) For women ages 55 and over, we support both the transition from an annual to a biennial interval if this aligns more with patient's values and preferences, or continuation with annual screening; 5) All women should discuss with their providers when to stop screening mammograms. Lumber Racker: Deven Transcribe Date/Time: Feb 21 2024 7:29A Dictated by: YIFAN CASTILLO MD This examination was interpreted and the report reviewed and electronically signed by: YIFAN CASTILLO MD on Feb 21 2024 10:39AM EST [id number] Normal [facility] Cervical or vagninal specime n microscopic examination by cytology stain (reported ason 07-05-2022 Cytology report Cyto stain Doc (Cvx/Vag) Comment . [facility] Work Phone: Comment on above: The Pap smear is a s creening test designed to aid in thedetection of premalignant and malignant conditions of theuterine cervix. It is not a diagnostic procedure andshould not be used as the sole means of detecting cervicalcancer. Both false-positive and false-negative reports dooccur. Detection in cervical specim en of any of human papilloma virus (HPV) 16, 18, 31, 33,on 07-05-2022 HPV 16+18+31+33+35+39+45+ 51+52+56+58+59+66+68 DNA Probe+sig amp Ql (Cvx) Negative Negative [facility] Work Phone: Comment on above: This nucleic acid am plification test detects fourteen high- risk HPV types (16,18,31,33,35,39,45,51,52,56,58,59,66,68)without differentiation. Laboratory - Cytologyon Wind Operations Supervisor Cyto stain Nom (Cvx/Vag) [ID] Comment . [facility] Work Phone: Comment on above: Jorge Luis Rosa, Plant Buyer (ASCP) Laboratory - Miscellaneous t estson 07-05-2022 Service comment (Unsp spec) [Interp] Comment . [facility] Work Phone: Comment on above: This liquid based Th inPrep(R) pap test was screened withthe use of an image guided system. Service comment (Unsp spec) [Interp] . . [facility] Work Phone: Liquid-based cerv Pap + CT/G C by ENRIQUE w reflex to high-risk HPV for ASCUSon 07-05-2022 Cytology report Cyto stain.thin prep Doc (Cvx/Vag) Comment . [facility] Work Phone: Comment on above: Criteria not met, HP V Genotype not performed.Performed at: [facility] [address] [place] [id number] Director: Marissa Rollins MD, Phone: [phone] at: =[facility] [place], [place] [id number] Director: Marissa Rollins MD, Phone: [phone] No Panel Informationon 07-05 Pathology report final diagnosis Narrative Comment . [facility] Work Phone: Comment on above: NEGATIVE FOR INTRAEP ITHELIAL LESION OR MALIGNANCY.CELLULAR CHANGES ASSOCIATED WITH INFLAMMATION ARE PRESENT. XR HAND MINIMUM 3 VIEWS LEFT on 08-19-2021 XR HAND MINIMUM 3 VIEWS LEFT ORIGINAL EXAMINATION: THREE XRAY VIEWS OF THE LEFT HAND 08/19/2021 6:20 pm COMPARISON: None. HISTORY: ORDERING SYSTEM PROVIDED HISTORY: Reason for Exam: pain 3rd digit pain after object fell on it FINDINGS: No acute fracture or dislocation. The carpal arcs are maintained. No significant degenerative change, erosive changes or aggressive periosteal reaction. No significant soft tissue swelling or radiopaque foreign body. IMPRESSION: No acute fracture or dislocation. I have personally reviewed the images of this examination and agree with the resident's findings and interpretation. Interpreted by: Hussein Hdz Preliminary Report By: Gustabo De Los Santos Electronically signed By Hussein Hdz Dictated Date: 08/19/2021 6:37:08 PM Prelim Date: 08/19/2021 6:38:57 PM Sign Date: 08/19/2021 6:59:54 PM Ordering Provider: ALISHA Z[facility] HPV Auto Reflex PAP ([id number])O rdered By: Contract Paralegal on 07-01-2020 Microscopic observation Other stain Nom (Unsp spec) . [facility] Work Phone: Comment on above: Source.............C ervix;EndocervixNo. of containers..01 ThinPrep VialPATIENT NOT FASTINGPERFORMED BY: Keaton Row[address] [facility] [id number] Information: [id number] Pathology report final diagnosis Narrative [facility] Normal [facility] Work Phone: Comment on above: NEGATIVE FOR INTRAEP ITHELIAL LESION OR MALIGNANCY.SPECIMEN REPROCESSED FOR INTERPRETATION USING GLACIAL ACETIC ACID(GAA).Satisfactory for evaluation. Endocervical and/or squamous metaplasticcells (endocervical component) are present.Z01.419Ratna Amaral Plant Buyer (ASCP) Source.............C ervix;EndocervixNo. of containers..01 ThinPrep VialPATIENT NOT FASTINGPERFORMED BY: [employer] [id number] Information: [id number] HPV Auto Reflex PAP ([id number]) PAPSMR Normal [facility] Work Phone: Comment on above: The Pap smear is a s creening test designed to aid in the detection ofpremalignant and malignant conditions of the uterine cervix. It is not adiagnostic procedure and should not be used as the sole means of detectingcervical cancer. Both false-positive and false-negative reports do occur. . Source.............C ervix;EndocervixNo. of containers..01 ThinPrep VialPATIENT NOT FASTINGPERFORMED BY: Keaton Row [address] [id number] Information: [id number] HPV Auto Reflex PAP ([id number]) NEGHPV Normal [facility] Work Phone: Comment on above: The HPV DNA reflex c riteria were not met with this specimen resulttherefore, no HPV testing was performed. . Source.............C ervix;EndocervixNo. of containers..01 ThinPrep VialPATIENT NOT FASTINGPERFORMED BY: Keaton Row [address] [id number] Information: [id number] HPV Auto Reflex PAP ([id number])O rdered By: Contract Paralegal on 09-15-2019 Microscopic observation Other stain Nom (Unsp spec) . Normal [facility] Work Phone: Comment on above: No. of containers..0 1 ThinPrep VialPERFORMED BY: [employer] [place] [address] [id number] Information: [id number] Pathology report final diagnosis Narrative [facility] Normal [facility] Work Phone: Comment on above: NEGATIVE FOR INTRAEP ITHELIAL LESION OR MALIGNANCY.Satisfactory for evaluation. Endocervical and/or squamous metaplasticcells (endocervical component) are present.Areas of partially obscuring blood are present.R87.610Suemelyny Felix Plant Buyer (ASCP) No. of containers..0 1 ThinPrep VialPERFORMED BY: [employer] [place] [address] [id number] Information: [id number] HPV Auto Reflex PAP ([id number]) PAPSMR Normal [facility] Work Phone: Comment on above: The Pap smear is a s creening test designed to aid in the detection ofpremalignant and malignant conditions of the uterine cervix. It is not adiagnostic procedure and should not be used as the sole means of detectingcervical cancer. Both false-positive and false-negative reports do occur. .This liquid based ThinPrep(R) pap test was screened with theuse of an image guided system.The HPV DNA reflex criteria were not met with this specimen resulttherefore, no HPV testing was performed. . No. of containers..0 1 ThinPrep VialPERFORMED BY: [employer] [place], [place] [address]Advanced Imaging TechnologiesBarnes-K[facility] [id number] Information: [id number] THROAT STREPon 07-31-2018 THROAT STREP BETA STREP RESULT NO BETA STREPTOCOCCUS ISOLATED Normal [facility] Comment on above: Order Comment: Micky s: PH: PROVIDER COLLECT Performed By: #### M 150.04193, M100.01544 ####[facility] [address] [address]Wn# [phone] [facility] 07-29-2018 [facility] DATE OF SERVICE: 07/29/2018SUBJECTIVE: This patient is a 32-year-old female, here today complaining of sorethroat pain with swallowing. She states that she is on doxycycline, was seen at [facility], treated with doxycycline a couple of days ago and she feels like it isgetting worse instead of improving. She has some mild congestion with this but notreally complaining of a cough or congestion today. She is not complaining of anyearache. It is really mostly just pain with swallowing and it has been going on forover 5 days now.PAST MEDICAL HISTORY: Unremarkable for anything chronic.CURRENT MEDICATIONS: She is on control. No other medications.ALLERGIES: She has no known drug allergies.SOCIAL HISTORY: She is a non-smoker and drinks alcohol occasionally.FAMILY HISTORY: There is a family history of cancer.OBJECTIVE: Vital Signs: Stable. She is currently afebrile. HEENT: TMs are clear.Sinuses nontender. Nares clear. Pharynx shows 2+ tonsils with positive erythemaand exudates. Neck: Supple. She has tender anterior lymph nodes. Lungs: Clear.Heart: Regular; no murmurs, rubs, or gallops.I did get a rapid strep. It was negative.IMPRESSION: Tonsillitis.PLAN: I am going to treat her with Augmentin and try some viscous Xylocaine for thethroat. She is to use Motrin or Tylenol for pain/fever, get rest and fluids and ifnot improving in a few days follow up with her primary care doctor. Thierry Ling [facility]/[id number]: 07/29/2018 10:21DT: 07/29/2018 11:18SSI File#: [id number] #: [id number]/Reviewed by [facility] PATIENT NAME: POLLO CARRENO Marianak[address] Dr. Gordon MEDICAL REC #: [id number], [place] [id number] COMMUNITY REPORT [facility] OEHBDSSOR08/28/[address] [facility] PATIENT NAME: POLLO CARRENO Marianak[address] Dr. Gordon MEDICAL REC #: [id number], [place] [id number] COMMUNITY REPORT [facility] PHYSICIAN Normal [facility] COMMUNITY REPORT Normal [facility] RAPID STREP Aon 07-29-2018 S. pyogenes Ag IA Ql (Unsp spec) GROUP A STREP PRESUMPTIVE NEGATIVE FOR GROUP A BETA STREPTOCOCCUS Normal [facility] Comment on above: Order Comment: Micky perry: PH: PROVIDER COLLECT Performed By: #### M 150.84431, M100.78072 ####[address]# [phone] Vital Signs Date Time Vital Sign Value Performing Clinician Facility 02-13-2025 08:03-0400 Body height 177.[address] Cleo Joseph DO Work Phone: [facility] 02-13-2025 08:03-0400 Body mass index (BMI) [Ratio] 40.4 kg/m2 Dr. Cleo Joseph DO Work Phone: [facility] 02-13-2025 08:03-0400 Body weight 127.[address] Cleo Joseph DO Work Phone: [facility] 02-13-2025 08:03-0400 Diastolic blood pressure 83 mm[Hg] Dr. Cleo Joseph DO Work Phone: [facility] 02-13-2025 08:03-0400 Heart rate 88 /min Dr. Cleo Joseph DO Work Phone: [facility] 02-13-2025 08:03-0400 SaO2% (BldA) [Mass fraction] 96 % Dr. Cleo Joseph DO Work Phone: [facility] 02-13-2025 08:03-0400 Systolic blood pressure 133 mm[Hg] Dr. Cleo Joseph DO Work Phone: [facility] 11-20-2024 10:03-0400 Body height 177.[address] Cleo Joseph DO Work Phone: [facility] 11-20-2024 10:03-0400 Body mass index (BMI) [Ratio] 40.6 kg/m2 Dr. Cleo Joseph DO Work Phone: [facility] 11-20-2024 10:03-0400 Body weight 128.[address] Cleo Joseph DO Work Phone: [facility] 11-20-2024 10:03-0400 Diastolic blood pressure 84 mm[Hg] Dr. Cleo Joseph DO Work Phone: [facility] 11-20-2024 10:03-0400 Heart rate 90 /min Dr. Cleo Joseph DO Work Phone: [facility] 11-20-2024 10:03-0400 SaO2% (BldA) [Mass fraction] 98 % Dr. Cleo Joseph DO Work Phone: [facility] 11-20-2024 10:03-0400 Systolic blood pressure 131 mm[Hg] Dr. Cleo Joseph DO Work Phone: [facility] 11-15-2024 16:58-0400 Body temperature 98 [degF] Dr. Cleo Joseph DO Work Phone: [facility] 11-15-2024 16:58-0400 Diastolic blood pressure 78 mm[Hg] Dr. Cleo Joseph DO Work Phone: [facility] 11-15-2024 16:58-0400 Heart rate 78 /min Dr. Cleo Joseph DO Work Phone: [facility] 11-15-2024 16:58-0400 Respiratory rate 16 /min Dr. Cleo Joseph DO Work Phone: [facility] 11-15-2024 16:58-0400 SaO2% (BldA) [Mass fraction] 99 % Dr. Cleo Joseph DO Work Phone: [facility] 11-15-2024 16:58-0400 Systolic blood pressure 138 mm[Hg] Dr. Cleo Joseph DO Work Phone: [facility] 11-15-2024 14:23-0400 Body height 177.[address] Cleo Joseph DO Work Phone: [facility] 11-15-2024 14:23-0400 Body mass index (BMI) [Ratio] 39.8 kg/m2 Dr. Cleo Joseph DO Work Phone: [facility] 11-15-2024 14:23-0400 Body weight [address] Cleo Jsoeph DO Work Phone: [facility] 07-11-2024 11:25-0500 Body height 175 cm Leslye [place] TRANSIT AUTHORITY POLICE OFFICER.WORKERS COMPENSATION CLAIMS ANALYST Work Phone: [facility] 07-11-2024 11:25-0500 Body mass index (BMI) [Ratio] 41.77 kg/m2 Leslye Narinder TRANSIT AUTHORITY POLICE OFFICER.WORKERS COMPENSATION CLAIMS ANALYST Work Phone: [facility] 07-11-2024 11:25-0500 Body weight 127.91 kg Leslye Narinder TRANSIT AUTHORITY POLICE OFFICER.WORKERS COMPENSATION CLAIMS ANALYST Work Phone: [facility] 07-11-2024 11:25-0500 Diastolic blood pressure 84 mm[Hg] Leslye Narinder TRANSIT AUTHORITY POLICE OFFICER.WORKERS COMPENSATION CLAIMS ANALYST Work Phone: [facility] 07-11-2024 11:25-0500 Systolic blood pressure 124 mm[Hg] Leslye [place] TRANSIT AUTHORITY POLICE OFFICER.WORKERS COMPENSATION CLAIMS ANALYST Work Phone: [facility] 07-09-2023 07:30-0500 Body height 177.8 cm Leslye Narinder TRANSIT AUTHORITY POLICE OFFICER.WORKERS COMPENSATION CLAIMS ANALYST Work Phone: [facility] 07-09-2023 07:30-0500 Body weight 124.56 kg Leslye Narinder TRANSIT AUTHORITY POLICE OFFICER.WORKERS COMPENSATION CLAIMS ANALYST Work Phone: [facility] 07-09-2023 07:30-0500 Diastolic blood pressure 82 mm[Hg] Leslye [place] TRANSIT AUTHORITY POLICE OFFICER.WORKERS COMPENSATION CLAIMS ANALYST Work Phone: [facility] 07-09-2023 07:30-0500 Systolic blood pressure 120 mm[Hg] Leslye [place] TRANSIT AUTHORITY POLICE OFFICER.WORKERS COMPENSATION CLAIMS ANALYST Work Phone: [facility] 03-02-2023 07:25-0400 Body height 177.8 cm [facility] Work Phone: 03-02-2023 07:25-0400 Body mass index (BMI) [Ratio] 38.88 kg/m2 [facility]; [facility] Work Phone: 03-02-2023 07:25-0400 Body surface area Derived from formula 2.38 m2 [facility] Work Phone: 03-02-2023 07:25-0400 Body temperature 97.2 [degF] [facility]; [facility] Work Phone: 03-02-2023 07:25-0400 Body weight 122.93 kg [facility]; [facility] Work Phone: 03-02-2023 07:25-0400 Diastolic blood pressure 80 mm[Hg] [facility]; [facility] Work Phone: Comment on above: Patient Position: Sitting; Cuff Location : Left Arm; Cuff Size: Standard 03-02-2023 07:25-0400 Heart rate 81 /min Madyanival Claiborne [facility]; [facility] Work Phone: Comment on above: Pattern: Regular 03-02-2023 07:25-0400 Respiratory rate 16 /min Oliviabennettanival Srini [facility] Com[facility] e [facility]; [facility] Work Phone: Comment on above: Pattern: Unlabored 03-02-2023 07:25-0400 SaO2% (BldA) [Mass fraction] 99 % Mu Milligan [facility]; [facility] Work Phone: Comment on above: Room air 03-02-2023 07:25-0400 Systolic blood pressure 120 mm[Hg] [facility]; [facility] Work Phone: Comment on above: Patient Position: Sitting; Cuff Location : Left Arm; Cuff Size: Standard 01-24-2023 15:48-0400 Body height 177.8 cm Tara Ramos [facility]; [facility] Work Phone: 01-24-2023 15:48-0400 Body mass index (BMI) [Ratio] 39.17 kg/m2 Tara Slarb GLOST KILN OPERATOR [facility]; [facility] Work Phone: 01-24-2023 15:48-0400 Body surface area Derived from formula 2.38 m2 Tara Slarb GLOST KILN OPERATOR [facility]; [facility] Work Phone: 01-24-2023 15:48-0400 Body temperature 97.6 [degF] Tara Slarb GLOST KILN OPERATOR [facility]; [facility] Work Phone: Comment on above: Method: Temporal 01-24-2023 15:48-0400 Body weight 123.83 kg Tara Slarb GLOST KILN OPERATOR [facility]; [facility] Work Phone: 01-24-2023 15:48-0400 Diastolic blood pressure 82 mm[Hg] Tara Slarb GLOST KILN OPERATOR [facility]; [facility] Work Phone: Comment on above: Patient Position: Sitting; Cuff Location : Left Arm; Cuff Size: Standard 01-24-2023 15:48-0400 Heart rate 85 /min Tara Slarb GLOST KILN OPERATOR [facility]; [facility] Work Phone: Comment on above: Pattern: Regular 01-24-2023 15:48-0400 Respiratory rate 16 /min Tara Slarb GLOST KILN OPERATOR [facility]; [facility] Work Phone: Comment on above: Pattern: Unlabored 01-24-2023 15:48-0400 SaO2% (BldA) [Mass fraction] 98 % Tara Slarb GLOST KILN OPERATOR [facility]; [facility] Work Phone: Comment on above: Room air 01-24-2023 15:48-0400 Systolic blood pressure 132 mm[Hg] Tara Slarb GLOST KILN OPERATOR [facility]; [facility] Work Phone: Comment on above: Patient Position: Sitting; Cuff Location : Left Arm; Cuff Size: Standard 02-27-2022 08:27-0400 Body height 177.8 cm Tara Slarb GLOST KILN OPERATOR [facility]; [facility] Work Phone: 02-27-2022 08:27-0400 Body mass index (BMI) [Ratio] 38.45 kg/m2 Tara Slarb GLOST KILN OPERATOR [facility]; [facility] Work Phone: 02-27-2022 08:27-0400 Body surface area Derived from formula 2.36 m2 Tara Slarb GLOST KILN OPERATOR [facility]; [facility] Work Phone: 02-27-2022 08:27-0400 Body weight 121.56 kg Tara Slarb GLOST KILN OPERATOR [facility]; [facility] Work Phone: 02-27-2022 08:27-0400 Diastolic blood pressure 80 mm[Hg] Tara Slarb GLOST KILN OPERATOR [facility]; [facility] Work Phone: Comment on above: Patient Position: Sitting; Cuff Location : Left Arm; Cuff Size: Standard 02-27-2022 08:27-0400 Heart rate 76 /min Tara Slarb GLOST KILN OPERATOR [facility]; [facility] Work Phone: Comment on above: Pattern: Regular 02-27-2022 08:27-0400 Respiratory rate 17 /min Tara Slarb GLOST KILN OPERATOR [facility]; [facility] Work Phone: Comment on above: Pattern: Unlabored 02-27-2022 08:27-0400 SaO2% (BldA) [Mass fraction] 99 % Tara Slarb GLOST KILN OPERATOR [facility]; [facility] Work Phone: Comment on above: Room air 02-27-2022 08:27-0400 Systolic blood pressure 116 mm[Hg] Tara Slarb GLOST KILN OPERATOR [facility]; [facility] Work Phone: Comment on above: Patient Position: Sitting; Cuff Location : Left Arm; Cuff Size: Standard 08-19-2021 18:02-0500 Body temperature 97.88 [degF] ALISHA ZENG DO [facility] 08-19-2021 18:02-0500 Body weight 113.6 kg ALISHA ZEGN DO [facility] 08-19-2021 18:02-0500 Diastolic blood pressure 94 mm[Hg] ALISHA ZENG DO [facility] 08-19-2021 18:02-0500 Heart rate 99 /min ALISHA ZENG DO [facility] 08-19-2021 18:02-0500 Respiratory rate 18 /min ALISHA ZENG DO [facility] 08-19-2021 18:02-0500 Systolic blood pressure 138 mm[Hg] ALISHA ZENG DO [facility] 06-30-2020 16:15-0400 BMI (Body Mass Index) 38.31 kg/m2 [facility] Work Phone: 06-30-2020 16:15-0400 Body Temperature 97.1 [degF] [facility] Internal Medicine Work Phone: Comment on above: Method: Thermal Scan 06-30-2020 16:15-0400 Body weight 121.11 kg [facility] Internal Medicine Work Phone: 06-30-2020 16:15-0400 BP Diastolic 98 mm[Hg] [facility] Internal Medicine Work Phone: Comment on above: Patient Position: Sitting; Cuff Location : Left Arm; Cuff Size: Standard 06-30-2020 16:15-0400 BP Systolic 138 mm[Hg] [facility] Internal Medicine Work Phone: Comment on above: Patient Position: Sitting; Cuff Location : Left Arm; Cuff Size: Standard 06-30-2020 16:15-0400 BSA (Body Surface Area) 2.36 m2 [facility] Internal Medicine Work Phone: 06-30-2020 16:15-0400 Height 177.8 cm [facility] Work Phone: 06-30-2020 16:15-0400 Pulse (Heart Rate) 101 /min [facility] Comprehensiv e Internal Medicine Work Phone: Comment on above: Pattern: Regular 06-30-2020 16:15-0400 Pulse Oximetry 99 % Cleo Joseph [facility] Internal Medicine Work Phone: Comment on above: Room air 06-30-2020 16:15-0400 Respiratory Rate 116 /min [facility] Work Phone: Comment on above: Pattern: Unlabored 06-30-2020 16:15-0400 SaO2% (BldA) [Mass fraction] 99 % [facility]; [facility] Work Phone: Comment on above: Room air 09-15-2019 08:33-0500 BMI (Body Mass Index) 37.31 kg/m2 Temi Portillo [facility] Comprehensive [facility] Medicine Work Phone: 09-15-2019 08:33-0500 Body Temperature 96.5 [degF] Temi Portillo CHIEF SECURITY AND SAFETY OFFICER Comprehensiv e Internal Medicine Work Phone: Comment on above: Method: Temporal 09-15-2019 08:33-0500 Body weight 117.94 kg Temi Portillo [facility] Work Phone: 09-15-2019 08:33-0500 BP Diastolic 80 mm[Hg] Temi Portillo [facility] Work Phone: Comment on above: Patient Position: Sitting; Cuff Location : Left Arm; Cuff Size: Standard 09-15-2019 08:33-0500 BP Systolic 126 mm[Hg] Temi Portillo [facility] Medicine Work Phone: Comment on above: Patient Position: Sitting; Cuff Location : Left Arm; Cuff Size: Standard 09-15-2019 08:33-0500 BSA (Body Surface Area) 2.33 m2 Temi Portillo [facility] Medicine Work Phone: 09-15-2019 08:33-0500 Height 177.8 cm Temi Portillo [facility] Comprehensive [facility] Medicine Work Phone: 09-15-2019 08:33-0500 Pulse (Heart Rate) 77 /min Temi Portillo [facility] Comprehens [facility] Work Phone: Comment on above: Pattern: Regular 09-15-2019 08:33-0500 Pulse Oximetry 99 % Cleo Joseph [facility] Internal Medicine Work Phone: Comment on above: Room air 09-15-2019 08:33-0500 Respiratory Rate 16 /min Temi Portillo [facility] Comprehensiv e Internal Medicine Work Phone: Comment on above: Pattern: Unlabored 09-15-2019 08:33-0500 SaO2% (BldA) [Mass fraction] 99 % Temi Portillo CMA [facility] Work Phone: Comment on above: Room air 07-16-2019 11:16-0500 BMI (Body Mass Index) 37.59 kg/m2 Temi Portillo CMA [facility] Work Phone: 07-16-2019 11:16-0500 Body Temperature 96.9 [degF] Temi Portillo CMA [facility] Medicine Work Phone: Comment on above: Method: Temporal 07-16-2019 11:16-0500 Body weight 118.84 kg Temi Portillo CMA [facility] Work Phone: 07-16-2019 11:16-0500 BP Diastolic 74 mm[Hg] Temi Portillo CMA [facility] Internal Medicine Work Phone: Comment on above: Patient Position: Sitting; Cuff Location : Left Arm; Cuff Size: Standard 07-16-2019 11:16-0500 BP Systolic 127 mm[Hg] Temi Portillo [facility] Internal Medicine Work Phone: Comment on above: Patient Position: Sitting; Cuff Location : Left Arm; Cuff Size: Standard 07-16-2019 11:16-0500 BSA (Body Surface Area) 2.34 m2 Temi Portillo CHIEF SECURITY AND SAFETY OFFICER [facility] Work Phone: 07-16-2019 11:16-0500 Height 177.8 cm Temi Portillo [facility] Internal Medicine Work Phone: 07-16-2019 11:16-0500 Pulse (Heart Rate) 84 /min Temi Portillo CMA [facility] Work Phone: Comment on above: Pattern: Regular 07-16-2019 11:16-0500 Pulse Oximetry 99 % Cleo Joseph [facility] Internal Medicine Work Phone: Comment on above: Room air 07-16-2019 11:16-0500 Respiratory Rate 16 /min Temi Portillo CMA Com[facility] Internal Medicine Work Phone: Comment on above: Pattern: Unlabored 07-16-2019 11:16-0500 SaO2% (BldA) [Mass fraction] 99 % Temi Portillo [facility] Comprehensive [facility] Medicine Work Phone: Comment on above: Room air Encounters Encounter Date Encounter Type Care Provider Facility Start: 02-13-2025 End: 02-13-[address] Roldan Lewis MD -[facility] Work Phone: Start: 02-13-2025 End: 02-13-[address] Cleo Joseph DO Work Phone: [facility] Work Phone: Start: 01-01-2025 End: 01-01-[address] Roldan Lewis MD -[facility] Work Phone: Start: 01-01-2025 End: 01-01-2025 ambulatory Cleo Joseph Facility:[facility] Start: 12-12-2024 End: 12-12-[address] Roldan Lewis MD -[facility] Work Phone: Start: 12-12-2024 End: 12-12-2024 ambulatory Cleo Joseph Facility:[facility] Start: 11-20-2024 End: 11-20-[address] Santana Hebert MD -[facility] Start: 11-20-2024 End: 11-20-2024 ambulatory Santana Hebert Facility:[facility] Start: 11-18-2024 End: 11-18-[address] Cleo Joseph DO -[facility] Start: 11-18-2024 End: 11-18-[address] Cleo Joseph DO Work Phone: [facility] Work Phone: Start: 11-15-2024 End: 11-15-2024 Emergency department patient visit Dr. Cleo Joseph DO Work Phone: -Emergency Department Work Phone: Start: 11-05-2024 End: 11-05-[address] Cleo Joseph DO Work Phone: [facility] Work Phone: Start: 11-05-2024 End: 11-05-[address] Cleo Joseph DO -Ultrasound, [facility] Work Phone: Start: 11-05-2024 End: 11-05-2024 ambulatory Cleo Joseph Facility:[facility] Start: 09-08-2024 End: 09-08-2024 Refill Leslye Narinder TRANSIT AUTHORITY POLICE OFFICER.WORKERS COMPENSATION CLAIMS ANALYST Work Phone: OB/Gynecology Comment on above: Refill Request Start: 07-11-2024 End: 07-11-2024 ambulatory LESLYE NARINDER Facility:[facility] Start: 07-11-2024 End: 07-11-2024 Patient encounter procedure Leslye Narinder TRANSIT AUTHORITY POLICE OFFICER.WORKERS COMPENSATION CLAIMS ANALYST Work Phone: OB/Gynecology Comment on above: Encounter for gyneco logical examination (general) (routine) without abnormal findings (Primary Dx); Encounter for screening mammogram for breast cancer Start: 07-11-2024 End: 07-11-2024 Patient encounter status Leslye [place] TRANSIT AUTHORITY POLICE OFFICER.WORKERS COMPENSATION CLAIMS ANALYST Work Phone: [facility] Start: 02-28-2024 End: 02-28-2024 ambulatory Cleo Joseph [facility] Start: 02-21-2024 Documentation procedure Mammography Coordinator [facility] Department Start: 02-21-2024 Letter encounter Mammography Coordinator [facility] Start: 02-21-2024 End: 02-21-2024 ambulatory LESLYE BEE[place]LE Facility:[facility] Start: 02-21-2024 End: 02-21-2024 Subsequent hospital visit by physician Screen Mammo [facility] Comment on above: Encounter for screen ing mammogram for malignant neoplasm of breast [Z12.31] Start: 07-09-2023 End: 07-09-2023 Patient encounter procedure Leslye Narinder TRANSIT AUTHORITY POLICE OFFICER.WORKERS COMPENSATION CLAIMS ANALYST Work Phone: OB/Gynecology Comment on above: Encounter for gyneco logical examination (general) (routine) without abnormal findings (Primary Dx); Encounter for screening mammogram for malignant neoplasm of breast; Encounter for surveillance of contraceptive pills Start: 07-09-2023 End: 07-09-2023 Patient encounter status Lesley Barcenas TRANSIT AUTHORITY POLICE OFFICER.WORKERS COMPENSATION CLAIMS ANALYST Work Phone: [facility] Start: 03-02-2023 Review Cleo Martinezindia riley DO Work Phone: [facility] Start: 03-02-2023 End: 03-02-2023 Office outpatient visit 10 minutes Cleo Joseph DO Work Phone: [facility] Start: 02-09-2023 End: 02-09-2023 Patient encounter status Sourav Bautista GLOST KILN OPERATOR [facility]; [facility] Work Phone: Start: 02-09-2023 End: 02-09-2023 Phone Encounter Cleo Joseph DO Work Phone: [facility] Start: 01-24-2023 End: 01-24-2023 Patient encounter status Tara Londonoharsha GLOST KILN OPERATOR [facility]; [facility] Work Phone: Start: 01-24-2023 End: 01-24-2023 Periodic preventive med est patient 18-39 yrs Cleo Joseph DO Work Phone: [facility] Start: 07-05-2022 End: 07-05-2022 ambulatory [facility] Work Phone: Start: 07-05-2022 End: 07-05-2022 Patient encounter procedure [facility]-Laboratory, Specimen Start: 02-27-2022 End: 02-27-2022 Patient encounter status Cleo Joseph DO Work Phone: [facility]; [facility] Work Phone: Start: 02-27-2022 End: 02-27-2022 Periodic preventive med est patient 18-39 yrs Cleo Joseph DO Work Phone: [facility] Start: 09-14-2021 End: 09-14-2021 Phone Encounter Cleo Joseph DO Work Phone: [facility] Start: 08-19-2021 End: 08-19-2021 Emergency department patient visit ALISHA ZENG DO [facility] Start: 06-30-2020 End: 06-30-2020 Patient encounter status Cleo Jake DO Work Phone: [facility]; [facility] Work Phone: Start: 06-30-2020 End: 06-30-2020 Periodic preventive med est patient 18-39 yrs Cleo Joseph [facility] Start: 05-24-2020 End: 05-24-2020 Annotation/Addendum Cleo Joseph [facility] Clerk al Medicine Start: 04-22-2020 End: 05-03-2020 Annotation/Addendum Cleo Joseph [facility] Start: 04-22-2020 Review Cleo Joseph Compreh ensive Internal Medicine Start: 09-18-2019 End: 09-18-2019 Phone Encounter Cleo Joseph [facility] Medicine Start: 09-15-2019 End: 09-15-2019 Office outpatient visit 10 minutes Cleo Joseph [facility] Start: 09-10-2019 End: 09-10-2019 Office outpatient visit 5 minutes Cleo Joseph [facility] Start: 07-16-2019 End: 07-16-2019 Initial preventive medicine new pt age 18-39yrs Cleo Joseph [facility] Start: 07-16-2019 End: 07-16-2019 Patient encounter status Cleo Jake DO Work Phone: [facility] Start: 07-29-2018 Patient encounter procedure PROVIDER UNKNOWN Facility:[facility] Patient encounter status Temi Portillo [facility] Work Phone: Patient encounter status Mu Milligan [facility]; [facility] Work Phone: Procedures Date Procedure Procedure Detail Performing Clinician Start: 01-01-2025 Computed tomography of abdomen and pelvis with contrast Dr. Cleo Joseph DO Work Phone: Start: 01-01-2025 Sduas-1-Pbevvykshub measurement Dr. La Nena Joseph DO Work Phone: Comment on above: [employer] Electrochemiluminescen ce Immunoassay(ECLIA)Values obtained with different assay methods or kits cannotbe used interchangeably. Results cannot be interpreted asabsolute evidence of the presence or absence of malignantdisease.This test is not interpretable in females. Start: 01-01-[address] Cleo Joseph DO Work Phone: Comment on above: Performed at: [address] [id number] Director: Elier Crespo PhD, Phone: [phone] Start: 01-01-2025 Antibody to extractable nuclear antigen measurement Dr. Cleo Joseph DO Work Phone: Comment on above: Test not performed Start: 01-01-2025 Antibody to MATY-[address] Joseph DO Work Phone: Comment on above: Test not performed Start: 01-01-2025 Antibody to lupus La protein measurement Dr. Cleo Joseph DO Work Phone: Comment on above: Test not performed Start: 01-01-2025 Antibody to SS-A measurement Dr. Lane Joseph DO Work Phone: Comment on above: Test not performed Start: 01-01-[address] Cleo Joseph DO Work Phone: Comment on above: Test not performed Start: 01-01-2025 Hepatitis A virus antibody, IgM type Dr. Cleo Joseph DO Work Phone: Comment on above: A negative anti-HAV IgM result suggests no recent orcurrent HAV infection. Start: 01-01-2025 Hepatitis B core antibody measurement, IgM type Dr. Cleo Joseph DO Work Phone: Start: 01-01-2025 Hepatitis C antibody measurement Dr. Emilee Joseph DO Work Phone: Start: 01-01-2025 CUSHION MAKER HAND antibody measurement Dr. Cleo Joseph DO Work Phone: Comment on above: Test not performed Start: 11-20-2024 Plain X-ray abdomen Dr. Cleo Joseph DO Work Phone: Start: 11-18-2024 Positron emission tomography with computed tomography Dr. Cleo Joseph DO Work Phone: Start: 11-15-2024 Urnls dip stick/tablet reagent auto microscopy Dr. Cleo Joseph DO Work Phone: Start: 11-15-[address] April Joseph DO Work Phone: Start: 11-15-2024 Computed tomography of abdomen and pelvis with intravenous contrast Dr. Cleo Joseph DO Work Phone: Start: 11-05-2024 Ultrasound elastography of liver Dr. Emilee Joseph DO Work Phone: Start: 02-21-2024 Screening digital breast tomosynthesis bi Leslye Narinder TRANSIT AUTHORITY POLICE OFFICER.WORKERS COMPENSATION CLAIMS ANALYST Work Phone: Start: 02-07-2023 End: 02-07-2023 SCRN MAMM (CAD)W/CRISTHIAN BILAT Procedure Note: See Note; NOTES: [facility] Imaging Services [address] [place] [address] SCRN MAMM (CAD)W/CRISTHIAN BILAT MR#: [id number] Acct: [id number] Name: POLLO CARRENO Rep #: [id number] : 1985 F 37 From: Rigoberto rocha MD PCP: Dr. Cleo Joseph, DO Status: REG CLI Study: SCRN MAMM (CAD)W/CRISTHIAN BILAT Date of Exam: 03/25 Exam# [id number] Ordering Dr: Cleo Joseph DO MAMMOGRAPHY - BILATERAL SCREENING REASON FOR EXAM: Female, 37 years old. Routine annual screening examination. PERTINENT HISTORY: Mother with breast cancer. Grandmother with breast cancer. TECHNIQUE: Digital bilateral breast cristhian (3D mammographic acquisition) in the CC and MLO projections. 2-D mediolateral oblique (MLO) and craniocaudad (CC) views of both breasts were obtained. CAD: Full Field Digital Mammography with Computer Added Detection was performed. COMPARISON: Comparison is made with prior study July 22, 2020. FINDINGS: Breast Composition: There are scattered areas of fibroglandular density. There are no dominant masses or suspicious calcifications. Since prior study, there has been a decrease in size of the well-defined nodule in the deep central medial aspect of the left breast. It presently measures 6.5 mm x 4.4 mm. No other significant abnormalities are identified. There has been no significant change since the prior study. BI/SCRN MAMM (CAD)W/CRISTHIAN BILAT IMPRESSION: Stable bilateral screening mammogram. Yearly follow-up mammogram recommended. (A) ASSESSMENT CATEGORY: BIRADS Category 2: Benign. A letter regarding these results will be sent to the patient by the facility within 30 days. Approximately 10% of breast cancers are not detected by mammography. A normal mammogram should not delay biopsy of a clinically suspicious abnormality. [id number] Electronically Signed: Rigoberto Mahan MD at 9:18 EDT Reading Location ID and State: [address] [place] [address] , Service support , CC: Dr. Cleo Joseph DO Lumber Racker: Signed Cleo Joseph DO Work Phone: Start: 07-28-2020 End: 07-30-2020 Breast Limited Unilateral Comments: See Note; NOTES: [facility] Imaging Services [address] [place] [address] Breast Limited Unilateral MR#: [id number] Acct: [id number] Name: POLLO CARRENO Rep #: [id number] : 1985 F 34 From: Scott Richardson DO PCP: Dr. Cleo Joseph DO Status: REG CLI Study: Breast Limited Unilateral Date of Exam: Exam# [id number] Ordering Dr: Cleo Joseph DO STUDY: ULTRASOUND BREAST - LEFT REASON FOR EXAM: Female, 34 years old. TECHNIQUE: Axial and longitudinal images of the LEFT breast were performed with a high resolution ultrasound transducer. # OF IMAGES: 61 COMPARISON: Previous mammogram obtained on 07/22/2020 FINDINGS: LEFT Breast: There is a lesion in the inferior medial quadrant. The lesion measures 0.4 x 0.2 cm in size. Clock notation: 6 o''clock position. Distance from nipple: 3 cm. Posterior Enhancement: Yes Posterior Shadowing: Yes Margins: Smooth Echogenicity: Hypoechoic US/Breast Limited Unilateral IMPRESSION: This nodular density appears to represent an intramammary lymph node. ASSESSMENT CATEGORY: BIRADS Category 2: Benign. A letter regarding these results will be sent to the patient by the facility within 30 days. Electronically Signed: Scott Richardson, at 9:18 EST Tel , Service support , CC: Dr. Cleo Joseph DO Lumber Racker: Signed Cleo Joseph Work Phone: Start: 07-22-2020 End: 07-22-2020 SCREEN MAMM (CAD) W/CRISTHIAN BILAT Comments: See Note; NOTES: [facility] Imaging Services [address] [place] [id number] SCREEN MAMM (CAD) W/CRISTHIAN BILAT MR#: [id number] Acct: [id number] Name: POLLO CARRENO Rep #: [id number] : 1985 F 34 From: Rigoberto rocha MD PCP: Dr. Cleo Joseph DO Status: REG CLI Study: SCREEN MAMM (CAD) W/CRISTHIAN BILAT Date of Exam: 09/21/19 Exam# [id number] Ordering Dr: Cleo Joseph DO MAMMOGRAPHY - BILATERAL SCREENING REASON FOR EXAM: Female, 34 years old. Routine annual screening examination. PERTINENT HISTORY: Mother with breast cancer. Grandmother with breast cancer. TECHNIQUE: Digital bilateral breast cristhian (3D mammographic acquisition) in the CC and MLO projections. 2-D mediolateral oblique (MLO) and craniocaudad (CC) views of both breasts were obtained. CAD: Full Field Digital Mammography with Computer Added Detection was performed. COMPARISON: None. Baseline examination. FINDINGS: Breast Composition: There are scattered areas of fibroglandular density. There are no dominant masses or suspicious calcifications. There is an 8 mm x 7.4 mm well-defined nodule in the deep central medial aspect of the left breast. Correlation with ultrasound is recommended. No other significant abnormalities are identified. BI/SCREEN MAMM (CAD) W/CRISTHIAN BILAT IMPRESSION: 8 mm x 7.4 mm well-defined nodule in the deep central medial aspect of the left breast. Correlation with ultrasound is recommended. ASSESSMENT CATEGORY: BIRADS Category 0: Incomplete. Need additional imaging evaluation. A letter regarding these results will be sent to the patient by the facility within 30 days. Approximately 10% of breast cancers are not detected by mammography. A normal mammogram should not delay biopsy of a clinically suspicious abnormality. [id number] Electronically Signed: Rigoberto Mahan, at 10:02 EST , Service support , CC: Dr. Cleo Joseph DO Lumber Racker: Signed Cleo Joseph Work Phone: Start: 09-17-2019 End: 09-17-2019 Sinus/Facial Bone Comments: See Note; NOTES: [facility] Imaging Services [address] [place] [address] Sinus/Facial Bone MR#: [id number] Acct: [id number] Name: POLLO CARRENO Rep #: [id number] : 1985 F 33 From: Carlos Paulino MD PCP: Cleo Joseph DO Status: REG CLI Study: Sinus/Facial Bone Date of Exam: 09/17/19 Exam# [id number] Ordering Dr: Tejas Moseley MD STUDY: CT MAXILLOFACIAL SINUSES REASON FOR EXAM: Female, 33 years old. SINUSITIS X 2 MONTHS RADIATION DOSAGE (If Supplied By Facility): CTDIvol = ( 33.06 ) mGy, DLP = ( 693.36 ) mGycm TECHNIQUE: The patient was scanned in a multi detector CT scanner. High resolution axial imaging was performed without the administration of intravenous contrast material. Sagittal and coronal images were reconstructed. Individualized dose optimization techniques were used for this CT. COMPARISON: None. FINDINGS: FRONTAL SINUSES: Hypoplastic right frontal sinus, without mucosal inflammatory disease. ETHMOIDAL SINUSES: Normal aeration, without mucosal inflammatory disease. MAXILLARY SINUSES: There is mild mucosal thickening in the bilateral maxillary sinuses suggesting chronic sinusitis. SPHENOIDAL SINUSES: There is a mucosal retention cyst in the sphenoid sinus on the right side measures 1 cm in greatest diameter. There is patency of the bilateral maxillary infundibuli with normal uncinate processes, ethmoid bullae, and hiatus semilunaris. Normal bilateral middle turbinates. Normal bilateral inferior turbinates. Normal midline nasal septum. There is patency of the bilateral nasal airways. The visualized osseous structures are normal. The visualized bilateral orbital contents are normal. CT/Sinus/Facial Bone IMPRESSION: There is mild mucosal thickening in the bilateral maxillary sinuses suggesting chronic sinusitis. There is a mucosal retention cyst in the sphenoid sinus on the right side measures 1 cm in greatest diameter. Electronically Signed: Carlos Paulino, at 8:23 EST Tel , Service support , CC: Cong Moseley MD; Cleo Joseph DO Lumber Racker: Signed Cleo Joseph Start: 07-16-2019 End: 07-16-2019 No Known Past Surgical History Temi Wild cornejo Plan of Treatment Date Care Activity Detail Author Start: 07-15-2029 Urine microalbumin profile DTaP,Tdap,Td Vaccine (2 - Td or Tdap) [facility] Start: 07-13-2025 End: 07-13-2025 Patient encounter procedure 07/13/2025 7:00 AM EST Office Visit OB/Gynecology [address] [place], [place] [id number] Leslye Barcenas APRN.WORKERS COMPENSATION CLAIMS ANALYST [address] [place] [address] Annual OB/Gynecology Comment on above: Annual Start: 02-20-2025 End: 08-10-2025 DBT Breast - bilateral screening JOSEF SCREENING W CRISTHIAN Radiology Routine Encounter for screening mammogram for breast cancer Expected: 02/20/2025 (Approximate), Expires: 08/10/2025 [facility] Work Phone: Comment on above: Expected: 02/20/2025 (Approximate), Expi res: 08/10/2025 Start: 02-20-2025 ambulatory Ambulatory Facility:[facility] Start: 02-20-2025 End: 02-20-2025 Patient encounter procedure 02/20/2025 7:10 AM EDT Appointment Mammogram [address] [place], [place] [address] Encounter for screening mammogram for breast cancer [Z12.31] Mammogram Comment on above: Encounter for screening mammogram for br east cancer [Z12.31] Start: 11-15-2024 [facility] Start: 07-11-2024 End: 07-11-2024 Patient encounter procedure 07/11/2024 11:30 AM EST Office Visit OB/Gynecology [address] [place] [address] Leslye Barcenas APRN.WORKERS COMPENSATION CLAIMS ANALYST [address] [place] [address] Annual OB/Gynecology Comment on above: Annual Start: 05-04-2024 Covid-19 Vaccine () Covid-19 Vaccine () [facility] Start: 05-04-2024 Influenza vaccination [facility] Start: 09-03-2023 Behavioral Health Screening Behavioral Health Screening [facility] Start: 05-04-2023 Covid-19 Vaccine () Covid-19 Vaccine () [facility] Start: 05-04-2023 Influenza vaccination Influenza Vaccine (#1) [facility] Start: 03-02-2023 Procedure Education Eprescribed prescriptions (G8553) [facility] Work Phone: Start: 03-02-2023 Provider Instructions for Treatment Follow up in 6 weeks- fu [facility]; [facility] Work Phone: Start: 02-09-2023 Hemoglobin glycosylated a1c HGB A1C (61803) [facility]; [facility] Work Phone: Start: 01-24-2023 Glucose quantitative blood xcpt reagent strip GLUCOSE (55841) [facility]; [facility] Work Phone: Start: 01-24-2023 Lipid panel LIPID PANEL (29800) [facility]; [facility] Work Phone: Start: 01-24-2023 Assay of testosterone total TESTOSTERONE TOTAL (01830) [facility]; [facility] Work Phone: Start: 01-24-2023 Assay of free thyroxine THYROXINE FREE (T4) (37180) [facility]; [facility] Work Phone: Start: 01-24-2023 Assay of triiodothyronine t3 free FREE TRIDOTHYRONINE (T3) (88617) [facility]; [facility] Work Phone: Start: 01-24-2023 Assay of estrone ESTRONE (41348) [facility]; [facility] Work Phone: Start: 01-24-2023 Dehydroepiandrosterone-miranda lfate DHEA-S (DEHYDROEPIANDROSTERONE SULFATE) (49106) [facility]; [facility] Work Phone: Start: 01-24-2023 Assay of testosterone free TESTOSTERONE FREE (49492) [facility]; [facility] Work Phone: Start: 01-24-2023 Assay of progesterone PROGESTERONE (90756) [facility]; [facility] Work Phone: Start: 01-24-2023 Assay of estradiol ESTRADIOL (32516) [facility]; [facility] Work Phone: Start: 01-24-2023 Assay of thyroid stimulating hormone tsh TSH (93234) [facility]; [facility] Work Phone: Start: 01-24-2023 Procedure Education Eprescribed prescriptions (G8553) [facility]; [facility] Work Phone: Start: 09-03-2022 Depression Assessment Depression Assessment [facility] Start: 02-27-2022 Procedure Education Eprescribed prescriptions (G8553) [facility]; [facility] Work Phone: Start: 02-27-2022 Provider Instructions for Treatment Reviewed Lab [facility]; [facility] Work Phone: Start: 06-30-2020 Hpv, dna, amp probe [facility] Work Phone: Start: 06-30-2020 Procedure Education Eprescribed prescriptions (G8553) [facility] Work Phone: Start: 06-30-2020 Provider Instructions for Treatment [facility] Work Phone: Start: 09-15-2019 Procedure Education Eprescribed prescriptions (G8553) [facility] Work Phone: Start: 09-15-2019 Provider Instructions for Treatment Pap/Pelvic/Bimanual/Rec raymond/Breast Exam was done. [facility] Work Phone: Start: 07-16-2019 Procedure Education Eprescribed prescriptions (G8553) [facility] Work Phone: Start: 07-16-2019 Provider Instructions for Treatment [facility] Work Phone: Start: 2014 HPV Testing HPV Testing [facility] Start: 2005 Pap Testing Pap Testing [facility] Start: 2005 Screening for malignant neoplasm of cervix Cervical Cancer Screening [facility] Start: 11-23-2003 Hepatitis B Vaccine (1 of 3 - 19+ 3-dose series) Hepatitis B Vaccine (1 of 3 - 19+ 3-dose series) [facility] Start: 2002 Hepatitis C Screening Hepatitis C Screening [facility] Start: 2002 Hepatitis C screening Hepatitis C Screening [facility] Start: 2002 HIV Screening HIV Screening [facility] Start: 2002 HIV screening HIV Screening [facility] Start: 1984 Hepatitis B Vaccine (1 of 3 - 3-dose series) Hepatitis B Vaccine (1 of 3 - 3-dose series) [facility] End: 08-07-2024 JOSEF SCREENING W CRISTHIAN JOSEF SCREENING W CRISTHIAN Radiology Routine Encounter for screening mammogram for malignant neoplasm of breast 1 Occurrences starting 07/09/2023 until 08/07/2024 [facility] Work Phone: Comment on above: 1 Occurrences starting 07/09/2023 until 08/07/2024 Measurement of occul t blood in stool specimen using immunoassay [facility] Patient Education Abdominal Pain ED Constipation (Adult) [facility] Work Phone: Patient referral [facility] Work Phone: [facility] Work Phone: [facility] Work Phone: [facility] Work Phone: [facility] Immunizations Immunization Date Immunization Notes Care Provider Fa cilihomero 07-15-2019 tetanus toxoid, reduced diphtheria toxoid, and acellular pertussis vaccine, adsorbed Cleo Joseph [facility] Cash Posting Clerk dc [facility] Work Phone: Payers Date Payer Category Payer Self-pay [id number] 2023 Private Health Insurance [id number] 2020 Private Health Insurance [id number] 2017 Unknown [id number] 2012 Unknown ANTHEM [id number] Private Health Insurance [employer] [id number] Unknown [id number] Unknown [employer] Insurance Unknown [id number] Unknown [id number] Unknown [id number] Unknown [id number] Unknown [id number] Unknown [id number] Unknown [id number] Unknown [id number] Unknown [id number] Unknown [id number] Social History Date Type Detail Facility Alcohol Use: Alcohol Use: [facility] Work Phone: Comment on above: 1-4 per month Start: 07-09-2023 End: 07-11-2024 No Caffeine Use No Caffeine Use [facility] [facility] Work Phone: Alcohol Use: Alcohol Use: [facility] Work Phone: Comment on above: 1-4 per month Start: 07-09-2023 End: 11-20-2024 Never smoked tobacco (finding) [facility] Start: 1985 Sex Assigned At Female A [facility] Start: 10-01-2014 Tobacco smoking stat [facility] Unknown if ever smoked [facility] Work Phone: Start: 07-09-2023 Tobacco use and exposure Smokeless tobacco non-user [facility] Start: 07-09-2023 End: 07-11-2024 Alcohol intake Current drinker of alcohol (finding) [facility] Start: 07-09-2023 End: 07-11-2024 Tobacco use panel [facility] National Score (1-100), lower number is lower risk 74 [facility] Start: 07-09-2023 Alcohol Comment [facility] Start: 1985 Sex Assigned At Not on file C [facility] Start: 02-14-2024 Gender identity Identifies as female gender (finding) [facility] Start: 02-14-2024 Sexual orientation Heterosexual (fin ding) [facility] Start: 11-15-2024 End: 11-27-2024 Sex Female (finding) [facility] Clinical Notes 06-30-2020 to 12-12-2024 Note Date & Type Note Facility 12-12-2024 Evaluation note Diagnosis Onset Date Resolution Liver nodule chronic December 12, 2024 12:08pm Metabolic dysfunction-associated steatotic liver disease (MASLD) chronic December 12, 2024 12:08pm [facility] Work Phone: [phone] Radiology Diagnostic study note [facility] Imaging Services [address] [place], [place] [address] Abdomen/Pelvis W IV Cont ONLY MR#: [id number] Acct: [id number] Name: POLLO CARRENO Rep #: [id number] : 1985 F 38 From: Logan Vidales DO PCP: Dr. Cleo Joseph DO Status: RE G ER Study:Abdomen/Pelvis W IV Cont ONLY Date of E xam: 11/15/24 Exam# [id number] Ordering Dr: Sadie Mon PROCEDURE: CT abdomen pelvis with IV contrast REASON FOR EXAM: Right-sided abdominal pain TECHNIQUE: Multiple contiguous axial images of the abdomen and pelvis were obtained after the administration of intravenous contrast. Two-dimensional coronal and sagittal reformatted images were reconstructed. Low- dose imaging technique was utilized. COMPARISON: None FINDINGS: Lung bases are clear. Hepatic steatosis. 4 cm partially enhancing lobular lesion along the peripheral left hepatic lobe. Two additional subtle enhancing lesions in the right hepatic lobe, largest measuring3 cm. Spleen, pancreas and adrenal glands are intact. Gallbladder is satisfactory. No significant biliary ductal dilation. Kidneys enhance symmetrically. No suspicious renal mass, calculi or hydronephrosis. Urinary bladder is intact. Uterus is present. No bowel obstruction, focal bowel wall thickening or significant perienteric inflammation. Normal appendix. No pelvicfree fluid. No free air. No abdominal aortic aneurysm or suspicious adenopathy. Superficial soft tissues are intact. No acute osseous abnormality. CT/Abdomen/Pelvis W IV Cont ONLY IMPRESSION: 1. No acute process. 2. Incompletely characterized enhancing lesions in the right and left hepatic lobes. Recommend further evaluation with nonemergent contrast-enhanced MRI. Reading Location: [facility] CC: Dr. Cleo Joseph DO; MARIA E Ford ~ Lumber Racker: Signed [facility]03-05-2025 Radiology Diagnostic study note [facility] Imaging Services [address] [place] [address] ABD Limited w/ Elastography MR#: [id number] Acct: [id number] Name: POLLO CARRENO Rep #: [id number] : 1985 F 38 From: Tobin Mahan MD PCP: Dr. Cleo Joseph DO Status: RE G CLI Study:ABD Limited w/ Elastography Date of Juan m: 11/05/24 Exam# [id number] Ordering Dr: Evangelina Joseph DO PROCEDURE: ABD LIMITED W/ ELASTOGRAPHY REASON FOR EXAM: Abnormal liver enzymes. COMPARISON: None. TECHNIQUE: Right upper quadrant abdominal ultrasound. [employer] ElastQ Imaging shear wave elastography for non-invasive assessment of liver tissue stiffness. [employer] EPIQ Elite. FINDINGS: LIVER: Size: Unremarkable Length: 15.9 cm Echotexture: Diffusely echogenic suggesting fatty infiltration Contour: Normal Lesions: Multiple hypoechoic solid nodules are seen throughout. The largest measures 4.7 cm 4.1 cm 3.5 cm. Metastatic disease should be ruled out. Elastography: EQI Med: 8.4 kPa EQI Med Anthony: 1.66 m/s IQR/Med: 8.2 %* GALLBLADDER: Normal COMMON BILE DUCT: Normal it measures 4 mm. PANCREAS: Normal Visualized portions of the right kidney are unremarkable. No right upper quadrant ascites. US/ABD Limited w/ Elastography IMPRESSION: MODERATE TO SEVERE HEPATIC FIBROSIS Multiple hypoechoic nodules scattered throughout the liver as described. Metastatic disease should be ruled out. Fatty infiltration of the liver. Reference Values: SRU <1.37 m/s (5.7kPa): No to mild fibrosis 1.37 m/s - 2.2 m/s: Moderate to severe fibrosis >2.2 m/s (15kPa): Significant fibrosis / cirrhosis METAVIR Score F2 or higher: 1.34 m/s (5.7kPa) F3 or higher: 1.55 m/s (7.3kPa) F4: 1.80 m/s (10kPa) * If the IQR/Med is >30%, the variance in the measurements is a large and the accuracy of the measurement may be in question. Reading Location: [id number] CC: Dr. Cleo Jake, DO ~ Lumber Racker: Signed [facility]01-06-2025 Telephone encounter Note* Telephone Encounter - Noemy Sultana RN - 09/08/2024 8:26 AM EST Patient seen for annual in July. Needs 90 days supply of Valtrex sent to her pharmacy. Requested Prescriptions Pending Prescriptions Disp Refills valACYclovir (VALTREX) 1 gram tablet Sig: Take 1 tablet by mouth once daily. Recent Office Visits - This Specialty 07/11/2024 Encounter for gynecological examination (general) (routine) without abnormal findings OB/Gynecology Leslye Barcenas APRN.JODIE 07/09/2023 Encounter for gynecological examination (general) (routine) without abnormal findings OB/Gynecology Leslye Barcenas APRN.CNP Next visit in this department: 07/13/2025 Noemy Sultana RN [facility]01-06-2025 Miscellaneous Notes* Telephone Encounter - Noemy Sultana RN - 09/08/2024 8:26 AM EST Patient seen for annual in July. Needs 90 days supply of Valtrex sent to her pharmacy. Requested Prescriptions Pending Prescriptions Disp Refills valACYclovir (VALTREX) 1 gram tablet Sig: Take 1 tablet by mouth once daily. Recent Office Visits - This Specialty 07/11/2024 Encounter for gynecological examination (general) (routine) without abnormal findings OB/Gynecology Leslye Barcenas APRN.JODIE 07/09/2023 Encounter for gynecological examination (general) (routine) without abnormal findings OB/Gynecology Leslye Barcenas APRN.CNP Next visit in this department: 07/13/2025 [facility]emy [facility]ultana [facility] NoteHNO ID: [id number] Author: LESLYE BARCENAS APRN.CNP Service: ? Author Type: Nurse Practitioner Type: Progress Notes Filed: 07/11/2024 11:50 Note Text: Stitch Bonding Machine Tender offered: Patient declines. ABAD is a 38 year old who presents for an annual gynecologic exam without complaints. Menses: cycles every 21-24 days and 3 days of flow. Contraception: combined hormonal contraceptives HPV vaccine: No Last Pap: normal 2021 HPV: 2021 negative History of abnormal pap: Yes 2020 ASCUS HPV + colp negative Last mammogram: 2023 normal Sexually active: Not currrently OB History T0 L0 SAB0 IAB0 Ectopic0 Multiple0 Live Births0 Union Organizer History LMP: 06/25/2023, Having periods Age at Menarche: Age at First : Age at Menopause: Union Organizer History Comments: Sexual Activity: Not Currently; No partner data on record Contraception: No contraception data on record PAST MEDICAL HISTORY Diagnosis Date Genital herpes Migraine PAST SURGICAL HISTORY Procedure Laterality Date NONE FAMILY HISTORY Problem Relation Age of Onset Breast Cancer Mother No Known Problems Father No Known Problems Brother No Known Problems Brother Breast Cancer Maternal Grandmother No Known Problems Maternal Grandfather No Known Problems Paternal Grandmother No Known Problems Paternal Grandfather SOCIAL HISTORY Social History Tobacco Use Smoking status: Never Smokeless tobacco: Never Vaping Use Vaping status: Never Used Substance Use Topics Alcohol use: Yes Comment: socially Drug use: Never REVIEW OF SYSTEMS Abdomen: No abdominal pain, nausea, vomiting, diarrhea, or constipation. No bloating, early satiety, indigestion, or increased flatulence. Bladder: No dysuria, gross hematuria, urinary frequency, urinary urgency, or incontinence. Breast: No breast lumps, nipple d/c, overlying skin changes, redness or skin retraction. Allergies and current medication updated:Yes SENSITIVE EXAM: The sensitive examination was discussed with the Patient or Patient's Authorized Binder Stripper Machine. As applicable, any other physician, advance practice provider, medical student, or other health professional student that will be observing or involved in the sensitive examination for educational or training purposes was discussed with the Patient or Authorized Binder Stripper Machine. The Patient or Authorized Binder Stripper Machine has agreed to proceed with the sensitive examination. (Sensitive examination includes inspection and/or palpation of the breasts, pelvis, prostate and anorectal regions). EXAM: LMP 06/25/2023 GENERAL: pleasant, female in no apparent distress HEENT: Normocephalic, atraumatic, mucus membranes moist, and no lesions DERMATOLOGY: Normal, without lesions, non-icteric, and non-hirsute BREAST: soft, non-tender, symmetric, no dominant mass, normal nipple-areolar complex, no lymphadenopathy, and no nipple discharge CHEST: Normal inspiratory effort ABDOMEN: soft, non-tender, and no masses PELVIC: external genitalia normal, normal Bartholin's glands, urethra, [place]'s glands, no vulvar lesions, no cervical lesions, good vaginal support, physiologic discharge present, normal appearing perineal body and perianal region BIMANUAL: uterus normal size, shape and consistency, no adnexal masses, and non-tender NEURO: alert and oriented x3,exam grossly non-focal EXTREMITIES: normal ASSESSMENT/PLAN: 1) Health maintenance: Pap/HPV up to date. Mammogram ordered. Nutrition, exercise and routine health maintenance exams reviewed. Calcium/Vitamin D supplementation information provided. 2) Contraception: combined hormonal contraceptives. Contraceptive options reviewed and information provided. 3) STD screening: Declined STD check. 4) Follow up one year or sooner as needed [facility] History of Present illness Narrative* Leslye Barcenas APRN.WORKERS COMPENSATION CLAIMS ANALYST - 07/11/2024 11:17 AM EST Stitch Bonding Machine Tender offered: Patient declines. POLLO is a 38 year old who presents for an annual gynecologic exam without complaints. Menses: cycles every 21-24 days and 3 days of flow. Contraception: combined hormonal contraceptives HPV vaccine: No Last Pap: normal 2021 HPV: 2021 negative History of abnormal pap: Yes 2020 ASCUS HPV + colp negative Last mammogram: 2023 normal Sexually active: Not currrently OB History T0 L0 SAB0 IAB0 Ectopic0 Multiple0 Live Births0 Union Organizer History LMP: 06/25/2023, Having periods Age at Menarche: Age at First : Age at Menopause: Union Organizer History Comments: Sexual Activity: Not Currently; No partner data on record Contraception: No contraception data on record PAST MEDICAL HISTORY Diagnosis Date Genital herpes Migraine PAST SURGICAL HISTORY Procedure Laterality Date NONE FAMILY HISTORY Problem Relation Age of Onset Breast Cancer Mother No Known Problems Father No Known Problems Brother No Known Problems Brother Breast Cancer Maternal Grandmother No Known Problems Maternal Grandfather No Known Problems Paternal Grandmother No Known Problems Paternal Grandfather SOCIAL HISTORY Social History Tobacco Use Smoking status: Never Smokeless tobacco: Never Vaping Use Vaping status: Never Used Substance Use Topics Alcohol use: Yes Comment: socially Drug use: Never REVIEW OF SYSTEMS Abdomen: No abdominal pain, nausea, vomiting, diarrhea, or constipation. No bloating, early satiety, indigestion, or increased flatulence. Bladder: No dysuria, gross hematuria, urinary frequency, urinary urgency, or incontinence. Breast: No breast lumps, nipple d/c, overlying skin changes, redness or skin retraction. Allergies and current medication updated:Yes SENSITIVE EXAM: The sensitive examination was discussed with the Patient or Patient's Authorized Binder Stripper Machine. As applicable, any other physician, advance practice provider, medical student, or other health professional student that will be observing or involved in the sensitive examination for educational or training purposes was discussed with the Patient or Authorized Binder Stripper Machine. The Patient or Authorized Binder Stripper Machine has agreed to proceed with the sensitive examination. (Sensitive examination includes inspection and/or palpation of the breasts, pelvis, prostate and anorectal regions). EXAM: LMP 06/25/2023 GENERAL: pleasant, female in no apparent distress HEENT: Normocephalic, atraumatic, mucus membranes moist, and no lesions DERMATOLOGY: Normal, without lesions, non-icteric, and non-hirsute BREAST: soft, non-tender, symmetric, no dominant mass, normal nipple-areolar complex, no lymphadenopathy, and no nipple discharge CHEST: Normal inspiratory effort ABDOMEN: soft, non-tender, and no masses PELVIC: external genitalia normal, normal Bartholin's glands, urethra, [place]'s glands, no vulvar lesions, no cervical lesions, good vaginal support, physiologic discharge present, normal appearing perineal body and perianal region BIMANUAL: uterus normal size, shape and consistency, no adnexal masses, and non-tender NEURO: alert and oriented x3,exam grossly non-focal EXTREMITIES: normal ASSESSMENT/PLAN: 1) Health maintenance: Pap/HPV up to date. Mammogram ordered. Nutrition, exercise and routine health maintenance exams reviewed. Calcium/Vitamin D supplementation information provided. 2) Contraception: combined hormonal contraceptives. Contraceptive options reviewed and information provided. 3) STD screening: Declined STD check. 4) Follow up one year or sooner as needed Leslye Barcenas APRN.JODIE documented in this encounterCleveland [id number] Note* Letter - Coordinator, Mammography - 02/21/2024 10:39 AM EDT February 21, 2024 PID: [id number] [address] [place] [address] Dear Wai, We are pleased to inform you that the results of your recent breast imaging exam on 02/21/2024 are normal. Early detection of cancer is very important. We also understand recommendations regarding breast cancer screening are controversial. Please discuss with your primary care provider which strategy is best for you and whether a mammogram is right for you. Your imaging studies and report will be kept on file at [facility] as part of your permanent medical record and are available for your continuing care. Thank you for allowing us to help in meeting your health care needs. Sincerely, Dr. Castillo Interpreting Radiologist [facility] (Normal over 40) [facility]06-20-2024 Miscellaneous Notes* Letter - Coordinator, Mammography - 02/21/2024 10:39 AM EDT February 21, 2024 PID: [id number] [address]o M[address] [place] [address] Dear Wai, We are pleased to inform you that the results of your recent breast imaging exam on 02/21/2024 are normal. Early detection of cancer is very important. We also understand recommendations regarding breast cancer screening are controversial. Please discuss with your primary care provider which strategy is best for you and whether a mammogram is right for you. Your imaging studies and report will be kept on file at [facility] as part of your permanent medical record and are available for your continuing care. Thank you for allowing us to help in meeting your health care needs. Sincerely, Dr. Castillo Interpreting Radiologist [facility] (Normal over 40) documented in this encounterClermont [facility]06-[facility]24 History of Present illness Narrative* Regis Munoz, Mammo Tech - 02/21/2024 7:30 AM EDT Radiology Service Progress Note PATIENT NAME: Pollo Carreno DATE OF SERVICE: February 21, 2024 TIME: 7:56 AM PATIENT IDENTITY VERIFICATION COMPLETED USING TWO (2) IDENTIFIERS: Name and Date of confirmedby patient verbally. FALL SCREENING: Has the patient had 2 falls in the last year or 1 fall with injury or currently using an Ambulatory Assistive Device (Walker, Cane, Wheelchair, Crutches, etc.)? No PATIENT GENDER DATA: Female. status: : No status: NO. PATIENT RELEVANT IMPLANT DATA REVIEWED: Not Applicable PATIENT PRESENTS WITH AN IMPLANTABLE OR ATTACHED MANUFACTURING CLERK: No RADIOLOGY DEPARTMENT: Mammography PERIPHERAL IV DATA: Not applicable SIGNED BY: Aman Patton February 21, 2024 7:56 AM documented in this encounterClermont [facility]06-[facility]24 NoteHNO ID: [id number] Author: REGIS MUNOZ Mammo Tech Service: ? Author Type: Golf Cart Repairer Type: Progress Notes Filed: 02/21/2024 07:56 Note Text: Radiology Service Progress Note PATIENT NAME: Pollo Carreno DATE OF SERVICE: February 21, 2024 TIME: 7:56 AM PATIENT IDENTITY VERIFICATION COMPLETED USING TWO (2) IDENTIFIERS: Name and Date of confirmed by patient verbally. FALL SCREENING: Has the patient had 2 falls in the last year or 1 fall with injury or currently using an Ambulatory Assistive Device (Walker, Cane, Wheelchair, Crutches, etc.)? No PATIENT GENDER DATA: Female. status: : No status: NO. PATIENT RELEVANT IMPLANT DATA REVIEWED: Not Applicable PATIENT PRESENTS WITH AN IMPLANTABLE OR ATTACHED MANUFACTURING CLERK: No RADIOLOGY DEPARTMENT: Mammography PERIPHERAL IV DATA: Not applicable SIGNED BY: Aman Patton February 21, 2024 7:[address] [facility]11-06-2023 History of Present illness Narrative* Leslye Barcenas APRN.CNP - 07/09/2023 7:28 AM EST Stitch Bonding Machine Tender offered: Patient declines. Pollo is a 37 year old who presents for an annual gynecologic exam without complaints. Transfer from [place] Menses: cycles every 21-24 days and 3 days of flow. Contraception: combined hormonal contraceptives HPV vaccine: No Last Pap: normal 2021 HPV: 2021 negative History of abnormal pap: Yes 2020 ASCUS Last mammogram: 2022normal @ [facility] Sexually active: Yes History of STDS: HSV Patient concerns for STD exposure: No. Pain with intercourse: No Postcoital bleeding: No OB History T0 L0 SAB0 IAB0 Ectopic0 Multiple0 Live Births0 Union Organizer History LMP: 06/25/2023, Having periods Age at Menarche: Age at First : Age at Menopause: Union Organizer History Comments: Sexual Activity: Not Currently; No partner data on record Contraception: No contraception data on record History reviewed. No pertinent past medical history. PAST SURGICAL HISTORY Procedure Laterality Date NONE FAMILY HISTORY Problem Relation Age of Onset Breast Cancer Mother No Known Problems Father No Known Problems Brother No Known Problems Brother Breast Cancer Maternal Grandmother No Known Problems Maternal Grandfather No Known Problems Paternal Grandmother No Known Problems Paternal Grandfather SOCIAL HISTORY Social History Tobacco Use Smoking status: Never Smokeless tobacco: Never Vaping Use Vaping Use: Never used Substance Use Topics Alcohol use: Yes Comment: socially Drug use: Never REVIEW OF SYSTEMS Abdomen: No abdominal pain, nausea, vomiting, diarrhea, or constipation. No bloating, early satiety, indigestion, or increased flatulence. Bladder: No dysuria, gross hematuria, urinary frequency, urinary urgency, or incontinence. Breast: No breast lumps, nipple d/c, overlying skin changes, redness or skin retraction. Allergies and current medication updated:Yes EXAM: BP 120/82 Ht 5' 10 (1.78m) Wt 274 lb 9.6 oz (124.6kg) LMP 06/25/2023 BMI 39.40 kg/(m^2). GENERAL: pleasant, female in no apparent distress HEENT: Normocephalic, atraumatic, mucus membranes moist, and no lesions NECK: Supple, full range of motion, no adenopathy, and thyroid normal DERMATOLOGY: Normal, without lesions, non-icteric, and non-hirsute BREAST: soft, non-tender, symmetric, no dominant mass, normal nipple-areolar complex, no lymphadenopathy, and no nipple discharge CHEST: Normal inspiratory effort ABDOMEN: soft, non-tender, and no masses PELVIC: external genitalia normal, normal Bartholin's glands, urethra, [place]'s glands, no vulvar lesions, no cervical lesions, good vaginal support, physiologic discharge present, normal appearing perineal body and perianal region BIMANUAL: uterus normal size, shape and consistency, no adnexal masses, and non-tender RECTOVAGINAL: deferred. NEURO: alert and oriented x3,exam grossly non-focal EXTREMITIES: normal ASSESSMENT/PLAN: 1) Health maintenance: Pap/HPV up to date. Mammogram up to date . Nutrition, exercise and routine health maintenance exams reviewed. Calcium/Vitamin D supplementation information provided. 2) Contraception: combined hormonal contraceptives. Contraceptive options reviewed and information provided. 3) STD screening: Declined STD check. 4) Follow up one year or sooner as needed Leslye Barcenas APRN.WORKERS COMPENSATION CLAIMS ANALYST documented in this encounterClerm[facility]11-[facility]22 NotePap Smear Specimen AdequacyNovember 2021 7:55amComment.Satisfactory for evaluation. Endocervical and/or squamous metaplasticcells (endocervical component)are present.[facility] INTERFACED A#[id number] [facility] Work Phone: Comment on above:Satisfactory for evaluation. Endocervical and/or squamous metaplasticcells (endocervical component)are present.08-19-2021 Hospital Discharge instructions Patient Education 08/19/2021 18:41:49 Hand Contusion Hand Contusion You have a contusion. This is also called a bruise. There is swelling and some bleeding under the skin, but no broken bones. This injury generally takes a few days to a few weeks to heal. During thattime, the bruise will typically change in color from reddish, to purple-blue, to greenish-yellow, then to yellow-brown. Home care Elevate the hand to reduce pain and swelling. As much as possible, sit or lie down with the hand raised about the level of your heart. This is especially important during the first 48 hours. Ice the hand to help reduce pain and swelling. Wrap a cold source (ice pack or ice cubes in a plastic bag) in a thin towel. Apply to the bruised area for 20 minutes every 1 to 2 hours the first day. Continue this 3 to 4 times a day until the pain and swelling goes away. Unless another medicine was prescribed, you can take acetaminophen, ibuprofen, or naproxen to control pain. (If you have chronic liver or kidney disease or ever had a stomach ulcer or gastrointestinal bleeding, talk with your doctor before using these medicines.) Follow up Follow up with your healthcare provider or our staff as advised. Call if you are not improving within 1 to 2 weeks. When to seek medical advice Call your healthcare provider right away if you have any of the following: Increased pain or swelling Arm becomes cold, blue, numb or tingly Signs of infection: Warmth, drainage, or increased redness or pain around the bruise Inability to move the injured hand Frequent bruising for unknown reasons [id number] [employer]. [address] [place] [address]. All rights reserved. This information is not intended as a substitute for professional medical care. Always follow yourhealthcare professional's instructions. Follow Up Care 08/19/2021 17:55:46 With:LANA FUNES JR, MD Address: [address] [place] [id number] [phone] When:2-4 days [facility] 10-28-2020 Instructions* Name Dates Details How to access health informa tion online Start:30-Jun-2020 Instruction Type:Patient Education How to access health informa tion online - Detail Start:30-Jun-2020 Instruction Type:Patient Education Patient Instructions Start:30-Jun-2020 Instruction Type:Provider Instructions for Treatment How to access health informa tion online Indication:Non-smoker Start:15-Sep-2019 Instruction Type:Patient Education How to access health informa tion online - Detail Indication:Non-smoker Start:15-Sep-2019 Instruction Type:Patient Education Patient Instructions Indication:Non-smoker Start:15-Sep-2019 Instruction Type:Provider Instructions for Treatment How to access health informa tion online Indication:BMI 37.0-37.9, adult Start:16-Jul-2019 Instruction Type:Patient Education How to access health informa tion online - Detail Indication:BMI 37.0-37.9, adult Start:16-Jul-2019 Instruction Type:Patient Education Patient Instructions Indication:BMI 37.0-37.9, adult Start:16-Jul-2019 Instruction Type:Provider Instructions for Treatment [facility] Work Phone: Evaluation + Plan note No data available for this section [facility] Evaluation noteNo assessment information available [facility] Work Phone: Evaluation note* Diagnosis Encounter for gynecological examination (general) (routine) without abnormal findings- Primary Encounter for screening mammogram for malignant neoplasm of breast Other screening mammogram Encounter for surveillance of contraceptive pills Surveillance of previously prescribed contraceptive pill documented in this encounter [facility] note* Diagnosis Encounter for screening mammogram for malignant neoplasm of breast Other screening mammogram documented in this encounter [facility] note* Diagnosis Encounter for gynecological examination (general) (routine) without abnormal findings- Primary Encounter for screening mammogram for breast cancer documented in this encounter [facility] Discharge instructions Additional Instructions Your labs and CT scan are normal other than the abnormal liver spots which will be further evaluated next week by your PET scan. I suspect that your pain and bloating is from Ozempic causing nausea and worsening constipation. I would discuss your symptoms with your prescriber. In the meantime you can take 1-2 caps of MiraLAX daily and increase fiber in your dietWUniversity Hospitals St. [facility] Work Phone: Instructions* Name Dates Details How to access health informa tion online Indication:Nonsmoker Start:30-Jun-2020 Instruction Type:Patient Education How to access health informa tion online - Detail Indication:Nonsmoker Start:30-Jun-2020 Instruction Type:Patient Education Patient Instructions Indication:Nonsmoker Start:30-Jun-2020 Instruction Type:Provider Instructions for Treatment How to access health informa tion online Indication:Non-smoker Start:15-Sep-2019 Instruction Type:Patient Education How to access health informa tion online - Detail Indication:Non-smoker Start:15-Sep-2019 Instruction Type:Patient Education Patient Instructions Indication:Non-smoker Start:15-Sep-2019 Instruction Type:Provider Instructions for Treatment How to access health informa tion online Indication:BMI 37.0-37.9, adult Start:16-Jul-2019 Instruction Type:Patient Education How to access health informa tion online - Detail Indication:BMI 37.0-37.9, adult Start:16-Jul-2019 Instruction Type:Patient Education Patient Instructions Indication:BMI 37.0-37.9, adult Start:16-Jul-2019 Instruction Type:Provider Instructions for Treatment [facility] Work Phone: Insxluxhions* Name Dates Details How to access health informa tion online Indication:Nonsmoker Start:30-Jun-2020 Instruction Type:Patient Education How to access health informa tion online - Detail Indication:Nonsmoker Start:30-Jun-2020 Instruction Type:Patient Education Patient Instructions Indication:Nonsmoker Start:30-Jun-2020 Instruction Type:Provider Instructions for Treatment How to access health informa tion online Indication:Non-smoker Start:15-Sep-2019 Instruction Type:Patient Education How to access health informa tion online - Detail Indication:Non-smoker Start:15-Sep-2019 Instruction Type:Patient Education Patient Instructions Indication:Non-smoker Start:15-Sep-2019 Instruction Type:Provider Instructions for Treatment How to access health informa tion online Indication:BMI 37.0-37.9, adult Start:16-Jul-2019 Instruction Type:Patient Education How to access health informa tion online - Detail Indication:BMI 37.0-37.9, adult Start:16-Jul-2019 Instruction Type:Patient Education Patient Instructions Indication:BMI 37.0-37.9, adult Start:16-Jul-2019 Instruction Type:Provider Instructions for Treatment [facility] Work Phone: Insjqhtvtmsx* Name Dates Details How to access health informa tion online Indication:Non-smoker Start:15-Sep-2019 Instruction Type:Patient Education How to access health informa tion online - Detail Indication:Non-smoker Start:15-Sep-2019 Instruction Type:Patient Education Patient Instructions Indication:Non-smoker Start:15-Sep-2019 Instruction Type:Provider Instructions for Treatment How to access health informa tion online Indication:BMI 37.0-37.9, adult Start:16-Jul-2019 Instruction Type:Patient Education How to access health informa tion online - Detail Indication:BMI 37.0-37.9, adult Start:16-Jul-2019 Instruction Type:Patient Education Patient Instructions Indication:BMI 37.0-37.9, adult Start:16-Jul-2019 Instruction Type:Provider Instructions for Treatment [facility] Work Phone: instructions* Name Dates Details How to Access Health Informa tion Online using Patient Portal and 3rd Green Party Apps Indication:Nonsmoker Start:27-Feb-2022 Instruction Type:Patient Education Patient Instructions Indication:Nonsmoker Start:27-Feb-2022 Instruction Type:Provider Instructions for Treatment How to access health informa tion online Indication:Nonsmoker Start:30-Jun-2020 Instruction Type:Patient Education How to access health informa tion online - Detail Indication:Nonsmoker Start:30-Jun-2020 Instruction Type:Patient Education Patient Instructions Indication:Nonsmoker Start:30-Jun-2020 Instruction Type:Provider Instructions for Treatment How to access health informa tion online Indication:Non-smoker Start:15-Sep-2019 Instruction Type:Patient Education How to access health informa tion online - Detail Indication:Non-smoker Start:15-Sep-2019 Instruction Type:Patient Education Patient Instructions Indication:Non-smoker Start:15-Sep-2019 Instruction Type:Provider Instructions for Treatment How to access health informa tion online Indication:BMI 37.0-37.9, adult Start:16-Jul-2019 Instruction Type:Patient Education How to access health informa tion online - Detail Indication:BMI 37.0-37.9, adult Start:16-Jul-2019 Instruction Type:Patient Education Patient Instructions Indication:BMI 37.0-37.9, adult Start:16-Jul-2019 Instruction Type:Provider Instructions for Treatment [facility]; [facility] Work Phone: instructions* Name Dates Details Patient Instructions Indication:Nonsmoker Start:24-Jan-2023 Instruction Type:Provider Instructions for Treatment How to Access Health Informa tion Online using Patient Portal and 3rd [employer] Apps Indication:Nonsmoker Start:24-Jan-2023 Instruction Type:Patient Education How to Access Health Informa tion Online using Patient Portal and 3rd [employer] Apps Indication:Nonsmoker Start:27-Feb-2022 Instruction Type:Patient Education Patient Instructions Indication:Nonsmoker Start:27-Feb-2022 Instruction Type:Provider Instructions for Treatment How to access health informa tion online Indication:Nonsmoker Start:30-Jun-2020 Instruction Type:Patient Education How to access health informa tion online - Detail Indication:Nonsmoker Start:30-Jun-2020 Instruction Type:Patient Education Patient Instructions Indication:Nonsmoker Start:30-Jun-2020 Instruction Type:Provider Instructions for Treatment How to access health informa tion online Indication:Non-smoker Start:15-Sep-2019 Instruction Type:Patient Education How to access health informa tion online - Detail Indication:Non-smoker Start:15-Sep-2019 Instruction Type:Patient Education Patient Instructions Indication:Non-smoker Start:15-Sep-2019 Instruction Type:Provider Instructions for Treatment How to access health informa tion online Indication:BMI 37.0-37.9, adult Start:16-Jul-2019 Instruction Type:Patient Education How to access health informa tion online - Detail Indication:BMI 37.0-37.9, adult Start:16-Jul-2019 Instruction Type:Patient Education Patient Instructions Indication:BMI 37.0-37.9, adult Start:16-Jul-2019 Instruction Type:Provider Instructions for Treatment [facility]; [facility] Work Phone: Instructions* Name Dates Details Patient Instructions Indication:Nonsmoker Start:24-Jan-2023 Instruction Type:Provider Instructions for Treatment How to Access Health Informa tion Online using Patient Portal and 3rd [employer] Party Apps Indication:Nonsmoker Start:24-Jan-2023 Instruction Type:Patient Education How to Access Health Informa tion Online using Patient Portal and 3rd [employer] Apps Indication:Nonsmoker Start:27-Feb-2022 Instruction Type:Patient Education Patient Instructions Indication:Nonsmoker Start:27-Feb-2022 Instruction Type:Provider Instructions for Treatment How to access health informa tion online Indication:Nonsmoker Start:30-Jun-2020 Instruction Type:Patient Education How to access health informa tion online - Detail Indication:Nonsmoker Start:30-Jun-2020 Instruction Type:Patient Education Patient Instructions Indication:Nonsmoker Start:30-Jun-2020 Instruction Type:Provider Instructions for Treatment How to access health informa tion online Indication:Non-smoker Start:15-Sep-2019 Instruction Type:Patient Education How to access health informa tion online - Detail Indication:Non-smoker Start:15-Sep-2019 Instruction Type:Patient Education Patient Instructions Indication:Non-smoker Start:15-Sep-2019 Instruction Type:Provider Instructions for Treatment How to access health informa tion online Indication:BMI 37.0-37.9, adult Start:16-Jul-2019 Instruction Type:Patient Education How to access health informa tion online - Detail Indication:BMI 37.0-37.9, adult Start:16-Jul-2019 Instruction Type:Patient Education Patient Instructions Indication:BMI 37.0-37.9, adult Start:16-Jul-2019 Instruction Type:Provider Instructions for Treatment [facility]; [facility] Work Phone: Instructions* Name Dates Details Patient Instructions Indication:BMI 38.0-38.9,adult Start:02-Mar-2023 Instruction Type:Provider Instructions for Treatment How to Access Health Informa tion Online using Patient Portal and 3rd [employer] Apps Indication:BMI 38.0-38.9,adult Start:02-Mar-2023 Instruction Type:Patient Education Patient Instructions Indication:Nonsmoker Start:24-Jan-2023 Instruction Type:Provider Instructions for Treatment How to Access Health Informa tion Online using Patient Portal and 3rd [employer] Apps Indication:Nonsmoker Start:24-Jan-2023 Instruction Type:Patient Education How to Access Health Informa tion Online using Patient Portal and 3rd [employer] Apps Indication:Nonsmoker Start:27-Feb-2022 Instruction Type:Patient Education Patient Instructions Indication:Nonsmoker Start:27-Feb-2022 Instruction Type:Provider Instructions for Treatment How to access health informa tion online Indication:Nonsmoker Start:30-Jun-2020 Instruction Type:Patient Education How to access health informa tion online - Detail Indication:Nonsmoker Start:30-Jun-2020 Instruction Type:Patient Education Patient Instructions Indication:Nonsmoker Start:30-Jun-2020 Instruction Type:Provider Instructions for Treatment How to access health informa tion online Indication:Non-smoker Start:15-Sep-2019 Instruction Type:Patient Education How to access health informa tion online - Detail Indication:Non-smoker Start:15-Sep-2019 Instruction Type:Patient Education Patient Instructions Indication:Non-smoker Start:15-Sep-2019 Instruction Type:Provider Instructions for Treatment How to access health informa tion online Indication:BMI 37.0-37.9, adult Start:16-Jul-2019 Instruction Type:Patient Education How to access health informa tion online - Detail Indication:BMI 37.0-37.9, adult Start:16-Jul-2019 Instruction Type:Patient Education Patient Instructions Indication:BMI 37.0-37.9, adult Start:16-Jul-2019 Instruction Type:Provider Instructions for Treatment [facility]; [facility] Work Phone: Instructions* Name Dates Details Patient Instructions Indication:BMI 38.0-38.9,adult Start:02-Mar-2023 Instruction Type:Provider Instructions for Treatment How to Access Health Informa tion Online using Patient Portal and 3rd [employer] Apps Indication:BMI 38.0-38.9,adult Start:02-Mar-2023 Instruction Type:Patient Education Patient Instructions Indication:Nonsmoker Start:24-Jan-2023 Instruction Type:Provider Instructions for Treatment How to Access Health Informa tion Online using Patient Portal and 3rd [employer] Party Apps Indication:Nonsmoker Start:24-Jan-2023 Instruction Type:Patient Education How to Access Health Informa tion Online using Patient Portal and 3rd [employer] Party Apps Indication:Nonsmoker Start:27-Feb-2022 Instruction Type:Patient Education Patient Instructions Indication:Nonsmoker Start:27-Feb-2022 Instruction Type:Provider Instructions for Treatment How to access health informa tion online Indication:Nonsmoker Start:30-Jun-2020 Instruction Type:Patient Education How to access health informa tion online - Detail Indication:Nonsmoker Start:30-Jun-2020 Instruction Type:Patient Education Patient Instructions Indication:Nonsmoker Start:30-Jun-2020 Instruction Type:Provider Instructions for Treatment How to access health informa tion online Indication:Non-smoker Start:15-Sep-2019 Instruction Type:Patient Education How to access health informa tion online - Detail Indication:Non-smoker Start:15-Sep-2019 Instruction Type:Patient Education Patient Instructions Indication:Non-smoker Start:15-Sep-2019 Instruction Type:Provider Instructions for Treatment How to access health informa tion online Indication:BMI 37.0-37.9, adult Start:16-Jul-2019 Instruction Type:Patient Education How to access health informa tion online - Detail Indication:BMI 37.0-37.9, adult Start:16-Jul-2019 Instruction Type:Patient Education Patient Instructions Indication:BMI 37.0-37.9, adult Start:16-Jul-2019 Instruction Type:Provider Instructions for Treatment [facility] Work Phone: reason for referral (narrative)* Diagnostic Procedure Only (Routine) - Authorized Specialty Diagnoses / Procedures Referred By Nathanielac t Referred To Contact [facility] Diagnoses Encounter for screening mammogram for malignant neoplasm of breast Procedures JOSEF SCREENING W CRISTHIAN SCREENING DIGITAL BREAST TOMOSYNTHESIS BI SCREENING MAMMOGRAPHY BI 2-VIEW BREAST INC Leslye Segura APRN.CNP [address] [place] [address] [facility] [address] [place] [address] Referral ID Status Reason Start Date Expiration Date Visits Requested Visits Authorized [id number] Authorized Auto-Generat ed Referral 07/09/2023 08/07/2024 1 1 [facility] for referral (narrative)* Diagnostic Procedure Only (Routine) - Closed Specialty Diagnoses / Procedures Referred By Doris t Referred To Contact [facility] Diagnoses Encounter for screening mammogram for malignant neoplasm of breast Procedures JOSEF SCREENING W CRISTHIAN SCREENING DIGITAL BREAST TOMOSYNTHESIS BI SCREENING MAMMOGRAPHY BI 2-VIEW BREAST INC CAD Leslye Barcenas APRN.CNP [address] [place] [address] [facility] [address] [place] [address] Referral ID Status Reason Start Date Expiration Date V isits Requested Visits Authorized [id number] Closed Auto-Generate d Referral 07/09/2023 08/07/2024 1 1 [facility] for referral (narrative)* Diagnostic Procedure Only (Routine) - Authorized Specialty Diagnoses / Procedures Referred By Contac t Referred To Contact [facility] Diagnoses Encounter for screening mammogram for breast cancer Procedures JOSEF SCREENING W CRISTHIAN SCREENING DIGITAL BREAST TOMOSYNTHESIS BI SCREENING MAMMOGRAPHY BI 2-VIEW BREAST INC CAD Leslye Barcenas APRN.CNP [address] [place] [address] [facility] [address] [place] [address] Referral ID Status Reason Start Date Expiration Date Visits Requested Visits Authorized [id number] Authorized Auto-Generat ed Referral 02/20/2025 08/10/2025 [facility]No reason for referral information availableWUniversity [facility] Work Phone: Reason for visit Narrative* Diagnostic Procedure Only (Routine) - Closed Specialty Diagnoses / Procedures Referred By Doris baron Referred To Contact [facility] Diagnoses Encounter for screening mammogram for malignant neoplasm of breast Procedures JOSEF SCREENING W CRISTHIAN SCREENING DIGITAL BREAST TOMOSYNTHESIS BI SCREENING MAMMOGRAPHY BI 2-VIEW BREAST INC Leslye Segura APRN.[employer] [address] [place] [address] [facility] [address] [place] [address] Referral ID Status Reason Start Date Expiration Date V isits Requested Visits Authorized [id number] Closed Auto-Generate d Referral 07/09/2023 08/07/2024 1 1 [facility] Summary Purpose Family History No Family History Records FoundUnknown Family Member Name Dates Details Maternal Grandmother Comments:breast cancer, thyr oid issues Status:Active Mother Comments:breast cancer Status:Active Paternal Grandfather Comments:high cholesterol an d hypertension Status:Active Paternal Grandmother Comments:skin cancer Status:Active Unknown Family Member Name Dates Details Maternal Grandmother Comments:breast cancer, thyr oid issues Status:Active Mother Comments:breast cancer Status:Active Paternal Grandfather Comments:high cholesterol an d hypertension Status:Active Paternal Grandmother Comments:skin cancer Status:Active Unknown Family Member Name Dates Details Maternal Grandmother Comments:breast cancer, thyr oid issues Status:Active Mother Comments:breast cancer Status:Active Paternal Grandfather Comments:high cholesterol an d hypertension Status:Active Paternal Grandmother Comments:skin cancer Status:Active Unknown Family Member Name Dates Details Maternal Grandmother Comments:breast cancer, thyr oid issues Status:Active Mother Comments:breast cancer Status:Active Paternal Grandfather Comments:high cholesterol an d hypertension Status:Active Paternal Grandmother Comments:skin cancer Status:Active Unknown Family Member Name Dates Details Maternal Grandmother Comments:breast cancer, thyr oid issues Status:Active Mother Comments:breast cancer Status:Active Paternal Grandfather Comments:high cholesterol an d hypertension Status:Active Paternal Grandmother Comments:skin cancer Status:Active Unknown Family Member Name Dates Details Maternal Grandmother Comments:breast cancer, thyr oid issues Status:Active Mother Comments:breast cancer Status:Active Paternal Grandfather Comments:high cholesterol an d hypertension Status:Active Paternal Grandmother Comments:skin cancer Status:Active Unknown Family Member Name Dates Details Maternal Grandmother Comments:breast cancer, thyr oid issues Status:Active Mother Comments:breast cancer Status:Active Paternal Grandfather Comments:high cholesterol an d hypertension Status:Active Paternal Grandmother Comments:skin cancer Status:Active Unknown Family Member Name Dates Details Maternal Grandmother Comments:breast cancer, thyr oid issues Status:Active Mother Comments:breast cancer Status:Active Paternal Grandfather Comments:high cholesterol an d hypertension Status:Active Paternal Grandmother Comments:skin cancer Status:Active Unknown Family Member Name Dates Details Maternal Grandmother Comments:breast cancer, thyr oid issues Status:Active Mother Comments:breast cancer Status:Active Paternal Grandfather Comments:high cholesterol an d hypertension Status:Active Paternal Grandmother Comments:skin cancer Status:Active Unknown Family Member Name Dates Details Maternal Grandmother Comments:breast cancer, thyr oid issues Status:Active Mother Comments:breast cancer Status:Active Paternal Grandfather Comments:high cholesterol an d hypertension Status:Active Paternal Grandmother Comments:skin cancer Status:Active Unknown Family Member Name Dates Details Maternal Grandmother Comments:breast cancer, thyr oid issues Status:Active Mother Comments:breast cancer Status:Active Paternal Grandfather Comments:high cholesterol an d hypertension Status:Active Paternal Grandmother Comments:skin cancer Status:Active Unknown Family Member Name Dates Details Maternal Grandmother Comments:breast cancer, thyr oid issues Status:Active Mother Comments:breast cancer Status:Active Paternal Grandfather Comments:high cholesterol an d hypertension Status:Active Paternal Grandmother Comments:skin cancer Status:Active Unknown Family Member Name Dates Details Maternal Grandmother Comments:breast cancer, thyr oid issues Status:Active Mother Comments:breast cancer Status:Active Paternal Grandfather Comments:high cholesterol an d hypertension Status:Active Paternal Grandmother Comments:skin cancer Status:Active Unknown Family Member Name Dates Details Maternal Grandmother Comments:breast cancer, thyr oid issues Status:Active Mother Comments:breast cancer Status:Active Paternal Grandfather Comments:high cholesterol an d hypertension Status:Active Paternal Grandmother Comments:skin cancer Status:Active Unknown Family Member Name Dates Details Maternal Grandmother Comments:breast cancer, thyr oid issues Status:Active Mother Comments:breast cancer Status:Active Paternal Grandfather Comments:high cholesterol an d hypertension Status:Active Paternal Grandmother Comments:skin cancer Status:Active Unknown Family Member Name Dates Details Maternal Grandmother Comments:breast cancer, thyr oid issues Status:Active Mother Comments:breast cancer Status:Active Paternal Grandfather Comments:high cholesterol an d hypertension Status:Active Paternal Grandmother Comments:skin cancer Status:Active Unknown Family Member Name Dates Details Maternal Grandmother Comments:breast cancer, thyr oid issues Status:Active Mother Comments:breast cancer Status:Active Paternal Grandfather Comments:high cholesterol an d hypertension Status:Active Paternal Grandmother Comments:skin cancer Status:Active Unknown Family Member Name Dates Details Maternal Grandmother Comments:breast cancer, thyr oid issues Status:Active Mother Comments:breast cancer Status:Active Paternal Grandfather Comments:high cholesterol an d hypertension Status:Active Paternal Grandmother Comments:skin cancer Status:Active Unknown Family Member Name Dates Details Maternal Grandmother Comments:breast cancer, thyr oid issues Status:Active Mother Comments:breast cancer Status:Active Paternal Grandfather Comments:high cholesterol an d hypertension Status:Active Paternal Grandmother Comments:skin cancer Status:Active Unknown Family Member Name Dates Details Maternal Grandmother Comments:breast cancer, thyr oid issues Status:Active Mother Comments:breast cancer Status:Active Paternal Grandfather Comments:high cholesterol an d hypertension Status:Active Paternal Grandmother Comments:skin cancer Status:Active Relationship Condition Age at Onset Recorded Date/T fern[place] mother Malignant neoplasm Unknown grandmother Malignant neoplasm Unknown Advance Directives No Advanced Directives Records Found Name Dates Details Immunization Registry [facility] - Effective on 07/16/2019. Expiration date unspecified Effective:16-Jul-2019 Name Dates Details Immunization Registry [facility] - Effective on 07/16/2019. Expiration date unspecified Effective:16-Jul-2019 Name Dates Details Immunization Registry [facility] - Effective on 07/16/2019. Expiration date unspecified Effective:16-Jul-2019 Name Dates Details Immunization Registry [facility] - Effective on 07/16/2019. Expiration date unspecified Effective:16-Jul-2019 Name Dates Details Immunization Registry [facility] - Effective on 07/16/2019. Expiration date unspecified Effective:16-Jul-2019 Name Dates Details Immunization Registry [facility] - Effective on 07/16/2019. Expiration date unspecified Effective:16-Jul-2019 Name Dates Details Immunization Registry [facility] - Effective on 07/16/2019. Expiration date unspecified Effective:16-Jul-2019 Name Dates Details Immunization Registry [facility] - Effective on 07/16/2019. Expiration date unspecified Effective:16-Jul-2019 Name Dates Details Immunization Registry [facility] - Effective on 07/16/2019. Expiration date unspecified Effective:16-Jul-2019 Name Dates Details Immunization Registry [facility] - Effective on 07/16/2019. Expiration date unspecified Effective:16-Jul-2019 Name Dates Details Immunization Registry [facility] - Effective on 07/16/2019. Expiration date unspecified Effective:16-Jul-2019 Name Dates Details Immunization Registry [facility] - Effective on 07/16/2019. Expiration date unspecified Effective:16-Jul-2019 Name Dates Details Immunization Registry [facility] - Effective on 07/16/2019. Expiration date unspecified Effective:16-Jul-2019 Name Dates Details Immunization Registry [facility] - Effective on 07/16/2019. Expiration date unspecified Effective:16-Jul-2019 Name Dates Details Immunization Registry [facility] - Effective on 07/16/2019. Expiration date unspecified Effective:16-Jul-2019 Name Dates Details Immunization Registry [facility] - Effective on 07/16/2019. Expiration date unspecified Effective:16-Jul-2019 Name Dates Details Immunization Registry [facility] - Effective on 07/16/2019. Expiration date unspecified Effective:16-Jul-2019 Name Dates Details Immunization Registry [facility] - Effective on 07/16/2019. Expiration date unspecified Effective:16-Jul-2019 Advance Directive Response Recorded Date/ Time Living Will Yes November 15, 2024 2:45pm Power of Epidemiology Investigator Yes November 15 2:45pm Name of Medical Power of Epidemiology Investigator ASA November 15, 2024 2:45pm Advance Directive Response Recorded Date/ Time Living Will Yes November 15, 2024 2:45pm Do you have a Healthcare Power of Epidemiology Investigator? Yes November 15, 2024 2:45pm Name of Medical Power of Epidemiology Investigator ASA November 15, 2024 2:45pm Instructions Name Dates Details How to access health informa tion online Indication:BMI 37.0-37.9, adult Start:16-Jul-2019 Instruction Type:Patient Education How to access health informa tion online - Detail Indication:BMI 37.0-37.9, adult Start:16-Jul-2019 Instruction Type:Patient Education Patient Instructions Indication:BMI 37.0-37.9, adult Start:16-Jul-2019 Instruction Type:Provider Instructions for Treatment Name Dates Details How to access health informa tion online Indication:BMI 37.0-37.9, adult Start:16-Jul-2019 Instruction Type:Patient Education How to access health informa tion online - Detail Indication:BMI 37.0-37.9, adult Start:16-Jul-2019 Instruction Type:Patient Education Patient Instructions Indication:BMI 37.0-37.9, adult Start:16-Jul-2019 Instruction Type:Provider Instructions for Treatment Name Dates Details How to access health informa tion online Indication:Non-smoker Start:15-Sep-2019 Instruction Type:Patient Education How to access health informa tion online - Detail Indication:Non-smoker Start:15-Sep-2019 Instruction Type:Patient Education Patient Instructions Indication:Non-smoker Start:15-Sep-2019 Instruction Type:Provider Instructions for Treatment How to access health informa tion online Indication:BMI 37.0-37.9, adult Start:16-Jul-2019 Instruction Type:Patient Education How to access health informa tion online - Detail Indication:BMI 37.0-37.9, adult Start:16-Jul-2019 Instruction Type:Patient Education Patient Instructions Indication:BMI 37.0-37.9, adult Start:16-Jul-2019 Instruction Type:Provider Instructions for Treatment Name Dates Details How to access health informa tion online Indication:Non-smoker Start:15-Sep-2019 Instruction Type:Patient Education How to access health informa tion online - Detail Indication:Non-smoker Start:15-Sep-2019 Instruction Type:Patient Education Patient Instructions Indication:Non-smoker Start:15-Sep-2019 Instruction Type:Provider Instructions for Treatment How to access health informa tion online Indication:BMI 37.0-37.9, adult Start:16-Jul-2019 Instruction Type:Patient Education How to access health informa tion online - Detail Indication:BMI 37.0-37.9, adult Start:16-Jul-2019 Instruction Type:Patient Education Patient Instructions Indication:BMI 37.0-37.9, adult Start:16-Jul-2019 Instruction Type:Provider Instructions for Treatment Name Dates Details How to access health informa tion online Indication:Non-smoker Start:15-Sep-2019 Instruction Type:Patient Education How to access health informa tion online - Detail Indication:Non-smoker Start:15-Sep-2019 Instruction Type:Patient Education Patient Instructions Indication:Non-smoker Start:15-Sep-2019 Instruction Type:Provider Instructions for Treatment How to access health informa tion online Indication:BMI 37.0-37.9, adult Start:16-Jul-2019 Instruction Type:Patient Education How to access health informa tion online - Detail Indication:BMI 37.0-37.9, adult Start:16-Jul-2019 Instruction Type:Patient Education Patient Instructions Indication:BMI 37.0-37.9, adult Start:16-Jul-2019 Instruction Type:Provider Instructions for Treatment Name Dates Details How to access health informa tion online Indication:Nonsmoker Start:30-Jun-2020 Instruction Type:Patient Education How to access health informa tion online - Detail Indication:Nonsmoker Start:30-Jun-2020 Instruction Type:Patient Education Patient Instructions Indication:Nonsmoker Start:30-Jun-2020 Instruction Type:Provider Instructions for Treatment How to access health informa tion online Indication:Non-smoker Start:15-Sep-2019 Instruction Type:Patient Education How to access health informa tion online - Detail Indication:Non-smoker Start:15-Sep-2019 Instruction Type:Patient Education Patient Instructions Indication:Non-smoker Start:15-Sep-2019 Instruction Type:Provider Instructions for Treatment How to access health informa tion online Indication:BMI 37.0-37.9, adult Start:16-Jul-2019 Instruction Type:Patient Education How to access health informa tion online - Detail Indication:BMI 37.0-37.9, adult Start:16-Jul-2019 Instruction Type:Patient Education Patient Instructions Indication:BMI 37.0-37.9, adult Start:16-Jul-2019 Instruction Type:Provider Instructions for Treatment Name Dates Details How to access health informa tion online Indication:Nonsmoker Start:30-Jun-2020 Instruction Type:Patient Education How to access health informa tion online - Detail Indication:Nonsmoker Start:30-Jun-2020 Instruction Type:Patient Education Patient Instructions Indication:Nonsmoker Start:30-Jun-2020 Instruction Type:Provider Instructions for Treatment How to access health informa tion online Indication:Non-smoker Start:15-Sep-2019 Instruction Type:Patient Education How to access health informa tion online - Detail Indication:Non-smoker Start:15-Sep-2019 Instruction Type:Patient Education Patient Instructions Indication:Non-smoker Start:15-Sep-2019 Instruction Type:Provider Instructions for Treatment How to access health informa tion online Indication:BMI 37.0-37.9, adult Start:16-Jul-2019 Instruction Type:Patient Education How to access health informa tion online - Detail Indication:BMI 37.0-37.9, adult Start:16-Jul-2019 Instruction Type:Patient Education Patient Instructions Indication:BMI 37.0-37.9, adult Start:16-Jul-2019 Instruction Type:Provider Instructions for Treatment Name Dates Details How to access health informa tion online Indication:Nonsmoker Start:30-Jun-2020 Instruction Type:Patient Education How to access health informa tion online - Detail Indication:Nonsmoker Start:30-Jun-2020 Instruction Type:Patient Education Patient Instructions Indication:Nonsmoker Start:30-Jun-2020 Instruction Type:Provider Instructions for Treatment How to access health informa tion online Indication:Non-smoker Start:15-Sep-2019 Instruction Type:Patient Education How to access health informa tion online - Detail Indication:Non-smoker Start:15-Sep-2019 Instruction Type:Patient Education Patient Instructions Indication:Non-smoker Start:15-Sep-2019 Instruction Type:Provider Instructions for Treatment How to access health informa tion online Indication:BMI 37.0-37.9, adult Start:16-Jul-2019 Instruction Type:Patient Education How to access health informa tion online - Detail Indication:BMI 37.0-37.9, adult Start:16-Jul-2019 Instruction Type:Patient Education Patient Instructions Indication:BMI 37.0-37.9, adult Start:16-Jul-2019 Instruction Type:Provider Instructions for Treatment Name Dates Details How to access health informa tion online Indication:Nonsmoker Start:30-Jun-2020 Instruction Type:Patient Education How to access health informa tion online - Detail Indication:Nonsmoker Start:30-Jun-2020 Instruction Type:Patient Education Patient Instructions Indication:Nonsmoker Start:30-Jun-2020 Instruction Type:Provider Instructions for Treatment How to access health informa tion online Indication:Non-smoker Start:15-Sep-2019 Instruction Type:Patient Education How to access health informa tion online - Detail Indication:Non-smoker Start:15-Sep-2019 Instruction Type:Patient Education Patient Instructions Indication:Non-smoker Start:15-Sep-2019 Instruction Type:Provider Instructions for Treatment How to access health informa tion online Indication:BMI 37.0-37.9, adult Start:16-Jul-2019 Instruction Type:Patient Education How to access health informa tion online - Detail Indication:BMI 37.0-37.9, adult Start:16-Jul-2019 Instruction Type:Patient Education Patient Instructions Indication:BMI 37.0-37.9, adult Start:16-Jul-2019 Instruction Type:Provider Instructions for Treatment Name Dates Details How to access health informa tion online Indication:Nonsmoker Start:30-Jun-2020 Instruction Type:Patient Education How to access health informa tion online - Detail Indication:Nonsmoker Start:30-Jun-2020 Instruction Type:Patient Education Patient Instructions Indication:Nonsmoker Start:30-Jun-2020 Instruction Type:Provider Instructions for Treatment How to access health informa tion online Indication:Non-smoker Start:15-Sep-2019 Instruction Type:Patient Education How to access health informa tion online - Detail Indication:Non-smoker Start:15-Sep-2019 Instruction Type:Patient Education Patient Instructions Indication:Non-smoker Start:15-Sep-2019 Instruction Type:Provider Instructions for Treatment How to access health informa tion online Indication:BMI 37.0-37.9, adult Start:16-Jul-2019 Instruction Type:Patient Education How to access health informa tion online - Detail Indication:BMI 37.0-37.9, adult Start:16-Jul-2019 Instruction Type:Patient Education Patient Instructions Indication:BMI 37.0-37.9, adult Start:16-Jul-2019 Instruction Type:Provider Instructions for Treatment Name Dates Details How to access health informa tion online Indication:Non-smoker Start:15-Sep-2019 Instruction Type:Patient Education How to access health informa tion online - Detail Indication:Non-smoker Start:15-Sep-2019 Instruction Type:Patient Education Patient Instructions Indication:Non-smoker Start:15-Sep-2019 Instruction Type:Provider Instructions for Treatment How to access health informa tion online Indication:BMI 37.0-37.9, adult Start:16-Jul-2019 Instruction Type:Patient Education How to access health informa tion online - Detail Indication:BMI 37.0-37.9, adult Start:16-Jul-2019 Instruction Type:Patient Education Patient Instructions Indication:BMI 37.0-37.9, adult Start:16-Jul-2019 Instruction Type:Provider Instructions for Treatment Chief Complaint and Reason for Visit Chief Complaint Admit Date [facility]NL FINDINGS OF BLOOD CHEM November 05 7:27am ABD PAIN November 15, 2024 2:2 3pm Chief Complaint Admit Date [facility]NL FINDINGS OF BLOOD CHEM November 05 7:27am ABD PAIN November 15, 2024 2:2 3pm UNK November 18, 2024 9:2 8am XRAY November 20, 2024 10: 04am Chief Complaint Admit Date [facility]NL FINDINGS OF BLOOD CHEM November 05 7:27am ABD PAIN November 15, 2024 2:2 3pm UNK November 18, 2024 9:2 8am XRAY November 20, 2024 10: 04am LIVER ISSUE December 12, 2024 12: 08pm MULTIPLE LIVER NODULES REPORTED IN CT AB D January 01, 2025 7:23am 2 M FU February 13, 2025 8:02 am Reason for Visit Admit Date Liver nodule December 12, 2024 12: 08pm Metabolic dysfunction-associ ated steatotic liver disease (MASLD) December 12, 2024 12:08pm Additional Source Comments INFORMATION SOURCE (unrecogn ized section and content) DATE CREATED AUTHOR 08/12/2018 [facility] [place] DATE CREATED AUTHOR AUTHOR'S ORGANIZ ATION 08/21/2021 [facility] ([place]) DATE CREATED AUTHOR AUTHOR'S ORGANIZ ATION 07/13/2024 [facility] DATE CREATED AUTHOR AUTHOR'S ORGANIZ ATION 02/14/2025 [facility] Goals (unrecognized section and content) Goals may be documented in a n alternate section Source Comments (unrecognize d section and content) In the event this informatio n is protected by the Federal Confidentiality of Alcohol and Drug Abuse Patient Records regulations: The Federal rules restrict any use of the information to criminally investigate or prosecute any alcohol or drug abuse patient.[facility] the event this information is protected by the Federal Confidentiality of Alcohol and Drug Abuse Patient Records regulations: The Federal rules restrict any use of the information to criminally investigate or prosecute any alcohol or drug abuse patient.[facility] the event this information is protected by the Federal Confidentiality of Alcohol and Drug Abuse Patient Records regulations: The Federal rules restrict any use of the information to criminally investigate or prosecute any alcohol or drug abuse patient.[facility] the event this information is protected by the Federal Confidentiality of Alcohol and Drug Abuse Patient Records regulations: The Federal rules restrict any use of the information to criminally investigate or prosecute any alcohol or drug abuse patient.[facility] the event this information is protected by the Federal Confidentiality of Alcohol and Drug Abuse Patient Records regulations: The Federal rules restrict any use of the information to criminally investigate or prosecute any alcohol or drug abuse patient.[facility] Reason for Visit (unrecogniz ed section and content) Reason Comments Well Woman Reason Onset Date Comments Refill Request 09/08/2024 Care Teams (unrecognized sec tion and content) Team Status: Active Member Role Status Dates Dr. Cleo Joseph DO Primary Care Provider Active Team Status: Inactive Member Role Status Dates Dr. Cleo Joseph DO Primary Care Provider Active Start: November 05, 2024 End: November 05, 2024 Dr. Cleo Joseph DO Attending Provider Active Start: November 05, 2024 End: November 05, 2024 Dr. Cleo Joseph DO Referring Provider Active Start: November 05, 2024 End: November 05, 2024 Team Status: Inactive Member Role Status Dates Dr. Cleo Joseph DO Primary Care Provider Active Start: November 15, 2024 End: November 15, 2024 Godwin Dozier MD Referring Provider Active Star t: November 15, 2024 End: November 15, 2024 Godwin Dozier MD Emergency Provider Active Star t: November 15, 2024 End: November 15, 2024 Team Status: Active Member Role Status Dates Dr. Cleo Joseph DO Primary Care Provider Active Start: November 05, 2024 Dr. Cleo Joseph DO Attending Provider Active Start: November 05, 2024 Dr. Cleo Joseph DO Referring Provider Active Start: November 05, 2024 Team Status: Inactive Member Role Status Dates Dr. Cleo Joseph DO Primary Care Provider Active Start: November 15, 2024 End: November 15, 2024 Godwin Dozier MD Attending Provider Active Star t: November 15, 2024 End: November 15, 2024 Godwin Dozier MD Referring Provider Active Star t: November 15, 2024 End: November 15, 2024 Godwin Dozier MD Emergency Provider Active Star t: November 15, 2024 End: November 15, 2024 Team Status: Inactive Member Role Status Dates Dr. Cleo Joseph DO Primary Care Provider Active Start: November 18, 2024 End: November 18, 2024 Dr. Cleo Joseph DO Attending Provider Active Start: November 18, 2024 End: November 18, 2024 Dr. Cleo Joseph DO Referring Provider Active Start: November 18, 2024 End: November 18, 2024 Team Status: Inactive Member Role Status Dates Dr. Cleo Joseph DO Primary Care Provider Active Start: November 20, 2024 End: November 20, 2024 Dr. Santana Hebert MD Attending Provider Active S tart: November 20, 2024 End: November 20, 2024 Team Status: Inactive Member Role Status Dates Dr. Cleo Joseph DO Primary Care Provider Active Start: December 12, 2024 End: December 12, 2024 Dr. Cleo Joseph DO Referring Provider Active Start: December 12, 2024 End: December 12, 2024 Dr. Roldan Lewis MD Attending Provider Active Start: December 12, 2024 End: December 12, 2024 Team Status: Inactive Member Role Status Dates Dr. Cleo Joseph DO Primary Care Provider Active Start: January 01, 2025 End: January 01, 2025 Dr. Roldan Lewis MD Attending Provider Active Start: January 01, 2025 End: January 01, 2025 Dr. Roldan Lewis MD Referring Provider Active Start: January 01, 2025 End: January 01, 2025 Team Status: Inactive Member Role Status Dates Dr. Cleo Joseph DO Primary Care Provider Active Start: February 13, 2025 End: February 13, 2025 Dr. Cleo Joseph DO Referring Provider Active Start: February 13, 2025 End: February 13, 2025 Dr. Roldan Lewis MD Attending Provider Active Start: February 13, 2025 End: February 13, 2025 FOR RECORDS PERTAINING TO PATIENTS WHO ARE OR HAVE BEEN ENROLLED IN A CHEMICAL DEPENDENCY/SUBSTANCEABUSE PROGRAM, SOME INFORMATION MAY BE OMITTED. This clinical summary was aggregated from multiple sources. Caution should be exercised in using it in the provision of clinical care. This summary normalizes information from multiple sources, and as a consequence, information in this document may materially change the coding, format and clinical context of patient data. In addition, data may be omitted in some cases. CLINICAL DECISIONS SHOULD BE BASED ON THE PRIMARY CLINICAL RECORDS. [facility]. provides no warranty or guarantee of the accuracy or completeness of information in this document.
[2025-02-20] MEDS: Lactated Ringers 1,000 ML 15 ML IV (07:34)
[2025-02-20 07:36] LABS: Internal QC Validated? YES +Cl - CLEAR BKGD; Pregnancy, Urine Negative Negative
--- NOTE | 2025-02-20 07:51 | HP.PCM_ITS ---
HPI - General General Date of Admission: 02/20/25 Date of Service: 02/20/25 Chief Complaint: Abdominal pain HPI Narrative POLLO DAIGLE, is a 39 F who presents with abdominal pain was intermittent but became constant over the last 4 days and she feels bloated. It is mainly in the right upper and mid abdomen. She has nausea with eating and drinking but no vomiting. She has chronic constipation. She states she is prediabetic but was just told her sugars were elevated to the threshold of diabetes and started Ozempic shots 3 weeks ago and thinks this worsened her constipation. She is having small pebble-like bowel movements every other day. She is passing gas. She has no history of abdominal surgery or bowel obstruction. She tried a probiotic and 2 doses of MiraLAX without improvement. She denies frequent alcohol use or smoking. She states recently her liver enzymes showed a high ALT so she had a right upper quadrant ultrasound with a normal gallbladder but liver nodules with her supposed to be further evaluated by a PET scan next week. OV 12/12/24 Pt here to f/u from ER 11/2024. Pt reports constipation, R side abdominal pain, gas and bloating. Pt reports a formed bm daily. Denies bloody stools, n/v/d. Pt reports no prior hx of colonoscopy or EGD. Reports she still has gallbladder. Reports she is no longer taking Ozempic and that seems to help with her constipation. Takes valacyclovir daily. Patient was drinking alcohol occasionally about twice a month liquor but she quit after she was found liver nodules, 2 months ago 11/20/24- XR Abd for constipation. -Moderate constipation 11/15/24-Abd/Pelvis CT -Hepatic steatosis. 4 cm partially enhancing lobular lesion along the peripheral left hepatic lobe. Two additional subtle enhancing lesions in the right hepatic lobe, largest measuring 3 cm. Spleen, pancreas and adrenal glands are intact. Gallbladder is satisfactory. No significant biliary ductal dilation. Kidneys enhance symmetrically. No suspicious renal mass, calculi or hydronephrosis. Urinary bladder is intact. Uterus is present. No bowel obstruction, 11/05/24-Abd limited w/elastography -MODERATE TO SEVERE HEPATIC FIBROSIS Multiple hypoechoic nodules scattered throughout the liver as described. Fatty infiltration of the liver. Multiple hypoechoic solid nodules are seen throughout. The largest measures 4.7 cm 4.1 cm 3.5 cm. Elastography Med: 8.4 kP 01/01/25- CT Triple Phase -Hypervascular hepatic lesions on arterial phase imaging, which are isodense to normal liver parenchyma on portal venous phase imaging, most compatible with focal nodular hyperplasia (FNH). 5.1.25- Fib-4 0.57 OV 6.13.25- Pt states she is feeling better since last visit. No longer has abdominal pain. States she still is having some constipation but her bowels have improved. She states the most bowel little bit in 2 to 3 days and occasionally gets complete sensation of bowel emptying. Denies burning micturition or lower urinary tract symptoms. Has been working on diet. [facility] Medical History Wears contact lenses Fatty liver Easy bruising Migraine headache History of IBS Heartburn Gastric reflux Non-smoker History of edema Impingement of right shoulder Right shoulder pain Home Medications ?Medication ?Instructions ?Recorded ?Last Taken ?Type valacyclovir 1 gram tablet 1,000 mg PO DAILY 02/18/25 Unknown History Allergy/AdvReac Type Severity Reaction Status Date / Time No Known Allergies Allergy Verified 02/20/25 07:31 Family History Mother Cancer Grandmother Cancer Surgical History No history of previous surgery Social History Smoking Status: Never smoker alcohol intake: current alcohol intake frequency: a few times a week what type of physical activity do you participate in: other details: matthieuling ROS Constitutional Constitutional: Denies fatigue, fever(s), poor appetite, weight gain or weight loss Gastrointestinal Gastrointestinal: Denies belching, bloating, change in bowel habits, change in stool character, chewing difficulty, coffee ground emesis, constipation, cramping, diarrhea, dyspepsia, dysphagia, early satiety, excessive flatus, fecal incontinence, heartburn, hematemesis, hematochezia, hemorrhoids, loose stools, melena, nausea, odynophagia, rectal bleeding, tenesmus, vomiting or weight changes Vital Signs Vital Signs Vital Signs: 02/20/25 07:31 02/20/25 07:31 Temperature 97.9 F Temperature Source Temporal Pulse Rate 86 Respiratory Rate 16 Respiratory Pattern Normal Blood Pressure 121/92 H Blood Pressure Mean 101 Blood Pressure Source Monitor Blood Pressure Position Semi-Fowlers Blood Pressure Location Left Arm Pulse Ox 99 Oxygen Delivery Method Room Air Weight Weight: 273 lb 13.026 oz Body Mass Index (BMI) 39.2 Physical Exam Const alert, oriented x3, no apparent distress and healthy appearing General Appearance: cooperative GI normal to inspection, nondistended, normoactive bowel sounds, soft to palpation, non-tender and non-distended Percussion: normal to percussion Rectal Exam: deferred Results Lab / Micro Data Labs: Laboratory Results - last 24 hr 02/20/25 07:28: Urine Test Negative Assessment & Plan Assessment/Plan (1) Focal nodular hyperplasia of liver: (2) Metabolic dysfunction-associated steatotic liver disease (MASLD): (3) Abdominal pain: PLAN: Assessment and Plan Assessment and Plan (1) Focal nodular hyperplasia of liver: Status: Chronic Plan: Patient had CT abdomen with IV contrast in November, that was reported 4 cm partially enhancing lobular lesion in the peripheral left hepatic lobe, 2 additional subtle enhancing lesion in right hepatic lobe largest measuring 3 cm. Prior to that patient had liver ultrasound with elastography which reported multiple hypoechoic solid nodule the largest measures 4.7 x 4.1 x 3.5 cm. Patient also had PET/CT by PCP for multiple hepatic nodules which shows no focus of abnormal hypermetabolic activity. CT triple phage with and without contrast, images and report reviewed with the patient in detail. Mildly arterial enhancing globular lesion on periphery of left hepatic lobe segment 2 with hypodensity on noncontrast images which are isodense to normal liver parenchyma on portal venous phase and delayed phage. It is also reported unchanged subtle arterial enhancing lesions on the right hepatic lobe, largest segment 8, demonstrating noncontrasted and delayed phase isodensity and near complete washout on venous phase. This is not clearly discretely visualized on the images. Therefore, patient is referred to tertiary care for second opinion with tumor board in , hepatology department, [facility]. Patient agreed with that proposal. Tumor markers, AFP, CA125 and CA 19-9 are negative. (2) Metabolic dysfunction-associated steatotic liver disease (MASLD): Status: Chronic Plan: Median liver stiffness 8.4K PA, median velocity 1.66 m/s. Liver chemistry normal limit. It is suggestive of mild to moderate risk of clinically significant liver fibrosis. She was taking Ozempic. After liver lesion is resolved, can consider GLP 1 agonist (3) Liver nodule: Status: Chronic
--- NOTE | 2025-02-20 07:52 | PRE.ANES_ITS ---
ASA Classification* ASA Classification ASA Classification: 3 Assessment & Plan Anesthesia* Anesthesia Assessment Anesthesia Assessment: Discussed sedation and/or anesthesia options, risks, benefits, and alternatives with patient/parents/legal guardian/POA. Questions invited. The patient/parents/legal guardian/POA seems to understand and agrees to proceed with anesthesia plan. Reviewed the physical assessment, medical history, allergy history and patient home medications list prior to surgery/procedure/anesthetic and documented any changes. Performed airway and anesthesia risk assessments. Anesthesia Type Anesthesia Type: MAC History Source History Obtained from:: Patient and Chart Anesthesia Focused Assessment* Temperature: 97.9 F Pulse Rate: 86 Blood Pressure: 121/92 Respiratory Rate: 16 Pulse Ox: 99 Oxygen Delivery Method: Room Air Airway Assessment Mouth opens: >3 cm Mallampati Score: I Teeth Condition: Intact Neck Range of motion (ROM): Full ROM Labs Anesthesia Preop lab: CBC WBC 8.5 K/mm3 (4.4-11.0) 01/01/25 07:55 01/01/25 RBC 4.66 M/mm3 (4.2-5.4) 01/01/25 07:55 01/01/25 Hgb 14.1 g/dL (12.0-15.0) 01/01/25 07:55 01/01/25 Hct 43.1 % (37-47) 01/01/25 07:55 01/01/25 Plt Count 246 K/mm3 (150-450) 01/01/25 07:55 01/01/25 CHEMISTRY Potassium 4.0 mmol/L (3.3-5.1) 01/01/25 07:55 01/01/25 Sodium 138 mmol/L (133-145) 01/01/25 07:55 01/01/25 BUN 21 mg/dL (4-19) H 01/01/25 07:55 01/01/25 Creatinine 0.95 mg/dL (0.70-1.20) 01/01/25 07:55 01/01/25 Glucose 108 mg/dL (70-99) H 01/01/25 07:55 01/01/25 COAG PT 12.3 SECONDS (11.7-14.9) 01/01/25 07:55 Urine Test Negative Negative 02/20/25 07:28 02/20/25 Pre-Assessment Diagnosis/Proposed Procedure Planned Operative Procedure(s): EGD, COLONOSCOPY Anesthesia History Anesthesia History - binder and wrapper packer: Anesthesia History - binder and wrapper packer Hx Hospitalization No 02/18/25 14:28 Any Problems With Anesthesia No 02/18/25 14:28 Cholinesterase deficiency No 02/18/25 14:28 You/Your Family Experience No 02/18/25 14:28 fever (hyperthermia) with Relationship Recent Exposure to Contagious No 02/20/25 07:31 Disease Does patient have nerve No 02/18/25 14:28 stimulator Patient instructed to have device shut off --Does patient have Pacemaker No 02/20/25 07:31 or ICD? When Was Last Pacemaker Check QUESTION #4 FULL TEXT: You/Your Family Experience fever (hyperthermia) with Anesthesia Last Oral Intake Last Oral intake: Last Oral Intake NPO since 21:00 02/20/25 07:31 Meds taken in AM with sips of water? Meds patient instructed to take am of surgery Any additional information?: Yes Meds taken in AM with sips of water?: Yes PONV PONV - binder and wrapper packer: PONV - binder and wrapper packer Female Yes 02/18/25 14:28 HX of Motion Sickness No 02/18/25 14:28 HX of N/V After Surgery No 02/18/25 14:28 Non-Smoker Yes 02/18/25 14:28 Duration of Surgery greater No 02/18/25 14:28 than 60 minutes Number of Risk Factors 2 02/18/25 14:28 PONV Score Moderate Risk 02/18/25 14:28 Height & Weight Height & Weight: Anesthesia: Height & Weight Height 5 ft 10 in 02/20/25 07:31 Weight: 124.2 kg 02/20/25 07:31 Body Mass Index (BMI) 39.2 02/20/25 07:31 Respiratory Assessment Respiratory Assessment - binder and wrapper packer: Respiratory Tract Infection Hx - binder and wrapper packer Hx Respiratory Tract Infection No 02/18/25 14:28 STOP Sleep Apnea STOP Sleep Apnea - binder and wrapper packer: STOP Sleep Apnea - binder and wrapper packer Hx Hypertension No 02/18/25 14:28 Hx Sleep Apnea No 02/18/25 14:28 CPAP BIPAP Do you snore loudly (louder No 02/18/25 14:28 than talking or can be heard Do you often feel tired/ No 02/18/25 14:28 fatigued/ sleepy during daytime? Has anyone observed you stop No 02/18/25 14:28 breathing during sleep? STOP Results Negative 02/18/25 14:28 QUESTION #5 FULL TEXT : Do you snore loudly (louder than talking or can be heard through closed doors)? Tobacco Use History Tobacco Use History - binder and wrapper packer: Tobacco Use History - binder and wrapper packer Tobacco Use Smoking Status Never smoker 02/18/25 14:28 Hx Tobacco Use No 02/18/25 14:28 Years Smoking Packs Smoked per Day Smoking Cessation Date was within the last 15 years Hx Smoking Cessation Date Hx Smoking Cessation Counseling Hematologic Medial History Hematologic Hx - binder and wrapper packer: Hematologic Medical Hx - receiving lead Hx of Blood Transfusion No 02/18/25 14:28 Hx of Transfusion in last 3 No 02/18/25 14:28 Months Date of Last Transfusion (if within last 3 months) Ever experience any problems No 02/18/25 14:28 with transfusion(s)? Specify any problems Hx of Preganancy in last 3 No 02/18/25 14:28 Months Nurse Filling Out Transfusion VLEHOKOLONA 02/18/25 14:28 & Questions: Date: 02/18/25 02/18/25 14:28 Time: 14:35 02/18/25 14:28 Patient unable to answer at this time (ie. confused, unrespo /Reproduction History /Reproductive History - binder and wrapper packer: /Reproductive Hx- binder and wrapper packer Hx Now No 02/18/25 14:28 Gestational Age (in weeks): EDC: Hx Hx Para Hx Section SAB No 02/18/25 14:28 Active Medications Active Medications: Current Medications Generic Name Dose Route Start Last Admin Trade Name Freq PRN Reason Stop Dose Admin Lactated Ringer's 1,000 mls @ 15 mls/hr 02/20/25 07:30 02/20/25 07:34 IV 15 mls/hr .Q48H COREY Administration PFSH Medical History Wears contact lenses Fatty liver Easy bruising Migraine headache History of IBS Heartburn Gastric reflux Non-smoker History of edema Impingement of right shoulder Right shoulder pain Home Medications ?Medication ?Instructions ?Recorded ?Last Taken ?Type valacyclovir 1 gram tablet 1,000 mg PO DAILY 02/18/25 02/20/25 History Allergy/AdvReac Type Severity Reaction Status Date / Time No Known Allergies Allergy Verified 02/20/25 07:31 Family History Mother Cancer Grandmother Cancer Surgical History No history of previous surgery Social History Smoking Status: Never smoker alcohol intake: current alcohol intake frequency: a few times a week what type of physical activity do you participate in: other details: bowling Review of Systems (Anesthesia) ROS Narrative System reviewed and no additional complaints, except as documented.
--- NOTE | 2025-02-20 08:15 | EGD_PTH ---
PATIENT: POLLO DAIGLE LOC: EN U#:[id number] AGE/SX: 39/F ROOM: RE02/20/[address]: Dr. Vinny Joy DO : 1985 BED: DIS: 02/20/2025 SPEC #: [id number] RECD: 02/20/25 13:57 STATUS: ERIC RETati #: [id number] LINDA: 02/20/25 08:[address]: Vinny Joy DEPT: SURGICAL PATHOLOGY RECD BY: David Hernández ENTERED: 02/20/25 15:12 SP TYPE: EGD BIOPSY LISSETT DR: Dr. Cleo Joseph DO Tissues: A - Duodenum, NOS B - Gastric mucous membrane C - Ileum, NOS D - COLON BIOPSY E - Rectum, NOS Procedures: Surgery Specimen Level IV HEADER OPERATION: Colonoscopy, EGD, biopsy PRE-OP DIAGNOSIS: Focal nodular hyperplasia of liver, MASLD, abdominal pain TISSUE SUBMITTED: A- Duodenum biopsy, B- Gastric antrum biopsy, C- Terminal ileum biopsy, D- Random colon biopsy, E- Rectum biopsy MICROSCOPIC DIAGNOSIS A. Duodenum, biopsy: - Normal villous morphology with Steve gland hyperplasia and focal mildly increased intraepithelial lymphocytes - see note. Note: This pattern of injury is etiologically nonspecific?and the differential diagnosis includes sensitivity to gluten and non-gluten proteins, small intestinal bacterial overgrowth, stasis related changes, infection, protein calorie malnutrition, tropical sprue, and medication injury (NSAIDs, Olmesartan / Benicar, Mycophenolic acid, Idelalisib, for example). If celiac disease is a clinical concern, additional clinical studies, such as tTG-IgA, are recommended. B. Gastric antrum, biopsy: - Oxyntic mucosa with slight chronic inflammation. - Negative for Helicobacter-like organisms (H&E). C. Terminal ileum, biopsy: - No specific pathologic change. D. Colon, random, biopsy: - No specific pathologic change. - The histologic features of microscopic colitis are not demonstrated. E. Rectum, biopsy: - No specific pathologic change. MICROSCOPIC DESCRIPTION Slides are reviewed. GROSS DESCRIPTION A. Received in fixative is one container labeled with the patient's name and designated Duodenum biopsy. The specimen consists of two irregular fragments of light pak soft tissue that in aggregate measure 0.2 and 0.3 cm. The specimen is totally submitted in one cassette. B. Received in fixative is one container labeled with the patient's name and designated Gastric antrum biopsy. The specimen consists of two irregular fragments of light pak soft tissue that in aggregate measure 0.4 and 0.6 cm. The specimen is totally submitted in one cassette. C. Received in fixative is one container labeled with the patient's name and designated Terminal ileum biopsy. The specimen consists of three irregular fragments of light pak soft tissue that in aggregate measure 0.2 to 0.9 cm. The specimen is totally submitted in one cassette. D. Received in fixative is one container labeled with the patient's name and designated Random colon biopsy. The specimen consists of multiple irregular fragments of light pak soft tissue that in aggregate measure 0.3 to 0.9 cm. The specimen is totally submitted in one cassette. E. Received in fixative is one container labeled with the patient's name and designated Rectum biopsy. The specimen consists of two irregular fragments of light pak soft tissue, each measuring 0.3 cm. The specimen is totally submitted in one cassette. 02/20/2025 CPT:28568u6
--- NOTE | 2025-02-20 08:50 | PCM.POST.ANE ---
Anesthesia: Postop Eval I Current Vital Signs Temperature: 97 F Pulse Rate: 92 Blood Pressure: 113/86 Respiratory Rate: 18 Pulse Ox: 96 Oxygen Delivery Method: Room Air Assessment Airway patent: Yes Spontaneous unlabored respirations: Yes Mental status: Asleep nausea: No Vomiting: No Anesthesia Complication: No Fluid Hydration Crystalloid volume administer (ml): 700 Total IV fluid infused: 700 Progress Note Anesthesia document: Postop Eval 1 completed: Yes
--- NOTE | 2025-02-20 08:52 | OP.EGD_ITS ---
Patient Name: Grecia Carreno Procedure Date: 02/20/2025 8:12 AM Date of : 1985 Age: 39 Procedure: Upper GI endoscopy Indications: Epigastric abdominal pain Providers: Vinny Joy DO Referring MD: Cleo Joseph Medicines: Monitored Anesthesia Care Patient Profile: This is a 39 year old female. Refer to note in patient chart for documentation of history and physical. Patient has symptoms of chronic abdominal cramping, acute epigastric abdominal pain, acute dyspepsia and chronic nausea. Complications: No immediate complications. Procedure: Pre-Anesthesia Assessment: - Prior to the procedure, a History and Physical was performed, and patient medications and allergies were reviewed. The patient is competent. The risks and benefits of the procedure and the sedation options and risks were discussed with the patient. All questions were answered and informed consent was obtained. Patient identification and proposed procedure were verified by the physician in the pre-procedure area. Mental Status Examination: alert and oriented. Airway Examination: normal oropharyngeal airway and neck mobility. Respiratory Examination: clear to auscultation. CV Examination: normal. ASA Grade Assessment: II - A patient with mild systemic disease. After reviewing the risks and benefits, the patient was deemed in satisfactory condition to undergo the procedure. The anesthesia plan was to use monitored anesthesia care (MAC). Immediately prior to administration of medications, the patient was re-assessed for adequacy to receive sedatives. The heart rate, respiratory rate, oxygen saturations, blood pressure, adequacy of pulmonary ventilation, and response to care were monitored throughout the procedure. The physical status of the patient was re-assessed after the procedure. After obtaining informed consent, the endoscope was passed under direct vision. Throughout the procedure, the patient's blood pressure, pulse, and oxygen saturations were monitored continuously. The Colonoscope was introduced through the mouth, and advanced to the third part of the duodenum. Small bowel enteroscopy was deemed necessary. The upper GI endoscopy was accomplished without difficulty. The patient tolerated the procedure well. Scope In: 8:21:51 AM Scope Out: 8:24:35 AM Total Procedure Duration Time 0 hours 2 minutes 44 seconds Findings: LA Grade B (one or more mucosal breaks greater than 5 mm, not extending between the tops of two mucosal folds) esophagitis with no bleeding was found 36 to 40 cm from the incisors. Clear fluid was found in the entire examined stomach. Patchy mildly erythematous mucosa without bleeding was found in the gastric body. Biopsies were taken with a cold forceps for histology. Verification of patient identification for the specimen was done. Estimated blood loss was minimal. Patchy mildly erythematous mucosa without active bleeding and with no stigmata of bleeding was found in the duodenal bulb, in the first portion of the duodenum, in the second portion of the duodenum and in the third portion of the duodenum. Biopsies were taken with a cold forceps for histology. Verification of patient identification for the specimen was done. Estimated blood loss was minimal. Impression: - LA Grade B reflux esophagitis with no bleeding. - Clear gastric fluid. - Erythematous mucosa in the gastric body. Biopsied. - Erythematous duodenopathy. Biopsied. Recommendation: - Discharge patient to home. - Resume previous diet. - Continue present medications. - Await pathology results. Procedure Code(s): --- Professional --- 26976, Small intestinal endoscopy, enteroscopy beyond second portion of duodenum, not including ileum; with biopsy, single or multiple CPT copyright 2021 [employer]. All rights reserved. The codes documented in this report are preliminary and upon economic analyst review may be revised to meet current compliance requirements. Vinny Joy DO 02/20/2025 8:51:32 AM This report has been signed electronically. Number of Addenda: 0 Note Initiated On: 02/20/2025 8:12 AM
--- NOTE | 2025-02-20 08:52 | OP.CCLET_ITS ---
02/20/2025 Cleo Joseph [address] [place] [address] Re : Upper GI endoscopy procedure for Grecia Carreno Dear Dr. Joseph This procedure was performed on Thursday, February 20, 2025. My impressions and recommendations are as follows: Impressions : - LA Grade B reflux esophagitis with no bleeding. - Clear gastric fluid. - Erythematous mucosa in the gastric body. Biopsied. - Erythematous duodenopathy. Biopsied. Recommendations : - Discharge patient to home. - Resume previous diet. - Continue present medications. - Await pathology results. My findings are described in the full procedure note, which is enclosed. If I can be of further assistance, please feel free to contact me at . Sincerely, Vinny Joy, 02/20/2025 8:51:32 AM This report has been signed electronically.
--- NOTE | 2025-02-20 08:55 | OP.CCLET_ITS ---
02/20/2025 Cleo Joseph [address] [place] [address] Re : Colonoscopy procedure for Grecia Carreno Dear Dr. Joseph This procedure was performed on Thursday, February 20, 2025. My impressions and recommendations are as follows: Impressions : - Congested mucosa in the entire examined colon. Biopsied. - The examined portion of the ileum was normal. Biopsied. Recommendations : - Discharge patient to home. - Resume previous diet. - Continue present medications. - Await pathology results. - Repeat colonoscopy in 10 years for screening purposes. My findings are described in the full procedure note, which is enclosed. If I can be of further assistance, please feel free to contact me at . Sincerely, Vinny Joy DO 02/20/2025 8:54:43 AM This report has been signed electronically.
--- NOTE | 2025-02-20 08:55 | OP.COLON_ITS ---
Patient Name: Grecia Carreno Procedure Date: 02/20/2025 8:24 AM Date of : 1985 Age: 39 Procedure: Colonoscopy Indications: Generalized abdominal pain, Abdominal pain in the left lower quadrant, Chronic diarrhea Providers: Vinny Joy DO Referring MD: Cleo Joseph Medicines: Monitored Anesthesia Care Patient Profile: This is a 39 year old female. Refer to note in patient chart for documentation of history and physical. Patient has symptoms of chronic abdominal cramping, acute epigastric abdominal pain, acute dyspepsia and chronic nausea. Last Colonoscopy: date unknown. Unable to locate last colonoscopy report. Complications: No immediate complications. Procedure: Pre-Anesthesia Assessment: - Prior to the procedure, a History and Physical was performed, and patient medications and allergies were reviewed. The patient is competent. The risks and benefits of the procedure and the sedation options and risks were discussed with the patient. All questions were answered and informed consent was obtained. Patient identification and proposed procedure were verified by the physician in the pre-procedure area. Mental Status Examination: alert and oriented. Airway Examination: normal oropharyngeal airway and neck mobility. Respiratory Examination: clear to auscultation. CV Examination: normal. ASA Grade Assessment: II - A patient with mild systemic disease. After reviewing the risks and benefits, the patient was deemed in satisfactory condition to undergo the procedure. The anesthesia plan was to use monitored anesthesia care (MAC). Immediately prior to administration of medications, the patient was re-assessed for adequacy to receive sedatives. The heart rate, respiratory rate, oxygen saturations, blood pressure, adequacy of pulmonary ventilation, and response to care were monitored throughout the procedure. The physical status of the patient was re-assessed after the procedure. After I obtained informed consent, the scope was passed under direct vision. Throughout the procedure, the patient's blood pressure, pulse, and oxygen saturations were monitored continuously. The Colonoscope was introduced through the anus and advanced to the terminal ileum. The colonoscopy was performed without difficulty. The patient tolerated the procedure well. The quality of the bowel preparation was adequate. The terminal ileum, ileocecal valve, appendiceal orifice, and rectum were photographed. Scope In: 8:25:24 AM Scope Withdrawal Time 0 hours 9 minutes 14 seconds Scope Out: 8:39:36 AM Total Procedure Duration Time 0 hours 14 minutes 12 seconds Findings: The perianal and digital rectal examinations were normal. An area of mildly congested mucosa was found in the entire colon. Biopsies were taken with a cold forceps for histology. Verification of patient identification for the specimen was done. Estimated blood loss was minimal. The terminal ileum appeared normal. Biopsies were taken with a cold forceps for histology. Verification of patient identification for the specimen was done. Estimated blood loss was minimal. Impression: - Congested mucosa in the entire examined colon. Biopsied. - The examined portion of the ileum was normal. Biopsied. Recommendation: - Discharge patient to home. - Resume previous diet. - Continue present medications. - Await pathology results. - Repeat colonoscopy in 10 years for screening purposes. Procedure Code(s): --- Professional --- 07510, Colonoscopy, flexible; with biopsy, single or multiple CPT copyright 2021 [employer]. All rights reserved. The codes documented in this report are preliminary and upon clinical coder review may be revised to meet current compliance requirements. Vinny Joy DO 02/20/2025 8:54:43 AM This report has been signed electronically. Number of Addenda: 0 Note Initiated On: 02/20/2025 8:24 AM
--- NOTE | 2025-02-20 15:43 | PCM.POSTANE2 ---
Anesthesia Postop Eval I Sum Postop Eval Completion status Anesthesia document: Postop Eval 1 completed: Yes Anesthesia Postop Eval I Summary Anesthesia Postop Eval I Summary: Anesthesia Postop Eval I: Assessment Summary Airway patent Yes 02/20/25 08:51 [email or web address] Spontaneous unlabored Yes 02/20/25 08:51 [email or web address] respirations Mental status Asleep 02/20/25 08:51 [email or web address] nausea No 02/20/25 08:51 [email or web address] Vomiting No 02/20/25 08:51 [email or web address] Anesthesia Postop Eval I: Fluid Summary Crystalloid volume administer 700 02/20/25 08:51 [email or web address] (ml) Colloids volume administered ( ml) Blood Product volume administered (ml) Total IV fluid infused 700 02/20/25 08:51 [email or web address] Anesthesia Postop Eval I: Summary Notes Anesthesia Complication No 02/20/25 08:51 [email or web address] Anesthesia Complication Comment: Post-operative progress note Anesthesia: Postop Eval II Evaluation Mental status: Awake Pain Level: 0 nausea: No Vomiting: No
== END 2025-02-20 09:29 | disposition home or self-care (01) ==
LOC: EN 07:11 → AC 07:12
PROVIDERS: Anesthesiology; PCP Internal Medicine; Referring Provider Internal Medicine; Visit Provider Internal Medicine Gastroenterology
PROC: 0DJD8ZZ Inspection of Lower Intestinal Tract, Via Natural or Artificial Opening Endoscopic (ICD-10-PCS; CPT 45378; principal; 2025-02-20 08:10)
DX: K21.00 Gastro-esophageal reflux disease with esophagitis, without bleeding (principal); K76.89 Other specified diseases of liver; K76.0 Fatty (change of) liver, not elsewhere classified; K59.09 Other constipation; K31.89 Other diseases of stomach and duodenum
CPT/HCPCS: 43239; 45380; 81025; 88305; J2405

== ENCOUNTER → 2025-04-10 | Outpatient (CLI) | payer OTHER, SELFPAY ==
--- NOTE | 2025-04-10 14:46 | MRI_ITS ---
PROCEDURE: UPPER EXT JOINT ONLY(ROUTINE) 04/10/2025 REASON FOR EXAM: PAIN DESPITE CORTISONE INJECTION TECHNIQUE: T1, T2, PD, MRI right shoulder) multiplanar and multisequence images were obtained without IV contrast administration. COMPARISON: COMPARISON: None FINDINGS: Bone Marrow: There is no bony contusion or occult fracture. Rotator cuff: There is no muscular atrophy. There is a partial-thickness, 75% width tear of the articular surface of the supraspinatus footplate without retraction. There is severe distal infraspinatus tendinopathy without full-thickness tear. There is severe subscapularis tendinopathy without full-thickness tear or retraction. The teres minor appears intact. AC joint: There is moderate AC joint hypertrophy without evidence of separation. There is a trace AC joint effusion. There is a type 3 acromion with impingement configuration. Labrum: There is a tear of the anterior superior labrum with a 1-2 o'clock position and biceps tendon anchor. Biceps tendon: There is moderate tendinopathy of the intra-articular portion of the biceps tendon. Effusion: There is a small joint effusion with fluid distention of the superior subscapularis recess. There is fluid in the subacromial subdeltoid bursa, with bursitis. MRI/Upper Ext Joint Only(Routine) IMPRESSION: There is a partial-thickness, 75% width tear of the articular surface of the miranda praspinatus footplate without retraction. There is severe distal infraspinatus tendinopathy without full-thickness tear. There is severe subscapularis tendinopathy without full-thickness tear or retra ction. There is moderate AC joint hypertrophy without evidence of separation. There is a trace AC joint effusion. There is a type 3 acromion with impingement configuration. There is a tear of the anterior superior labrum with a 1-2 o'clock position and biceps tendon anchor. There is moderate tendinopathy of the intra-articular portion of the biceps ten don. There is a small joint effusion with fluid distention of the superior subscapul kuldip recess. There is fluid in the subacromial subdeltoid bursa, with bursitis. Reading Location: [facility]
== END | disposition home or self-care (01) ==
LOC: MRI 14:44
PROVIDERS: PCP Internal Medicine; Referring Provider Orthopaedic Surgery Sports Medicine; Visit Provider Orthopaedic Surgery Sports Medicine
DX: M25.811 Other specified joint disorders, right shoulder (principal)
CPT/HCPCS: 73221

== ENCOUNTER 2025-06-17 07:47 | Day surgery (SDC) | payer OTHER, SELFPAY ==
[2025-06-17] VITALS (9 sets, daily range): BP systolic 99–114; BP diastolic 63–78; PULSE 65–82; RESP 16–18; TEMP 36.1–36.7; O2SAT 97–99; BMI 41.4
--- NOTE | 2025-06-17 07:54 | HP.PCM_ITS ---
HPI - General HPI Narrative POLLO DAIGLE, is a 39 F who presents for right shoulder arthroscopy, subacromial decompression, rotator cuff repair, biceps tenodesis. no change to h and p. right shoulder marked. rab, post op instructions, and narcotic counselling. ok to proceed. MR#: [id number] Acct: [id number] Name: POLLO DAIGLE Rep #: [id number] : 1985 Provider: Dr. Victorino Coleman MD Age/Sex: 39/F Location: [facility] [place] Status: Signed Intake Vital Signs 03/19/2508:31 04/15/2508:26 04/16/2511:29 Height 5 ft 10 in 5 ft 10 in 5 ft 10 in Weight: 270 lb 270 lb BMI 38.7 38.7 Intake Visit Reasons: RIGHT SHOULDER Chief Complaint: Right shoulder MRI review Accompanied by: Self Is patient in pain?: Yes Pain scale (1-10): 3 Allergies No Known Allergies Allergy (Verified 04/16/25 11:31) Medications ?Medication ?Instructions ?Recorded ?Confirmed ?Type valacyclovir 1 gram tablet 1,000 mg PO DAILY 02/18/25 04/16/25 Hist ory pantoprazole 40 mg tablet,delayed 40 mg PO BID #60 tabs 02/20/25 04/16/25 Rx release Have you fallen in the past year?: No PFSH Medical History Superior labrum yjwngcwn-jy-jhugdctql (SLAP) tear of right shoulder Right rotator cuff tear Wears contact lenses Fatty liver Easy bruising Migraine headache History of IBS Heartburn Gastric reflux Non-smoker History of edema Impingement of right shoulder Right shoulder pain Surgical History No history of previous surgery
--- NOTE | 2025-06-17 07:54 | PCM.HP.STD ---
HPI - General HPI Narrative POLLO DAIGLE, is a 39 F who presents for right shoulder arthroscopy, subacromial decompression, rotator cuff repair, biceps tenodesis. no change to h and p. right shoulder marked. rab, post op instructions, and narcotic counselling. ok to proceed. MR#: [id number] Acct: [id number] Name: POLLO DAIGLE Rep #: [id number] : 1985 Provider: Dr. Victorino Coleman MD Age/Sex: 39/F Location: [facility] [place] Status: Signed Intake Vital Signs 03/19/2508:31 04/15/2508:26 04/16/2511:29 Height 5 ft 10 in 5 ft 10 in 5 ft 10 in Weight: 270 lb 270 lb BMI 38.7 38.7 Intake Visit Reasons: RIGHT SHOULDER Chief Complaint: Right shoulder MRI review Accompanied by: Self Is patient in pain?: Yes Pain scale (1-10): 3 Allergies No Known Allergies Allergy (Verified 04/16/25 11:31) Medications ?Medication ?Instructions ?Recorded ?Confirmed ?Type valacyclovir 1 gram tablet 1,000 mg PO DAILY 02/18/25 04/16/25 History pantoprazole 40 mg tablet,delayed 40 mg PO BID #60 tabs 02/20/25 04/16/25 Rx release Have you fallen in the past year?: No PFSH Medical History Superior labrum xpjmvasy-kd-tzgficdbl (SLAP) tear of right shoulder Right rotator cuff tear Wears contact lenses Fatty liver Easy bruising Migraine headache History of IBS Heartburn Gastric reflux Non-smoker History of edema Impingement of right shoulder Right shoulder pain Surgical History No history of previous surgery Family History Mother Cancer Grandmother Cancer Social History Smoking Status: Never smoker alcohol intake: current alcohol intake frequency: a few times a week what type of physical activity do you participate in: other details: bowling [facility] RIGHT SHOULDER Details: This documentation accurately reflects the service provided and the decisions made by me, Dr. Victorino Coleman MD 04/16/25 0901. Part of today?s visit was documented by [ ], acting as scribe. POLLO DAIGLE is a 39 year old F here today for FU R shoulder MRI. Patient still having pain anteriorly and laterally with radiation down the upper arm. Supplemental Info [facility] [address] [place], [place] [address] Upper Ext Joint Only(Routine) MR#: [id number] Acct: [id number] Name: POLLO DAIGLE Rep #: [id number] : 1985 F 39 From: Raymundo Rosas MD PCP: Dr. Cleo Joseph, DO Status: REG CLI Study: Upper Ext Joint Only(Routine) Date of Exam: 04/10/25 Exam# [id number] Ordering Dr: Victorino Coleman MD PROCEDURE: UPPER EXT JOINT ONLY(ROUTINE) 04/10/2025 REASON FOR EXAM: PAIN DESPITE CORTISONE INJECTION TECHNIQUE: T1, T2, PD, MRI right shoulder) multiplanar and multisequence images were obtained without IV contrast administration. COMPARISON: COMPARISON: None FINDINGS: Bone Marrow: There is no bony contusion or occult fracture. Rotator cuff: There is no muscular atrophy. There is a partial-thickness, 75% width tear of the articular surface of the supraspinatus footplate without retraction. There is severe distal infraspinatus tendinopathy without full-thickness tear. There is severe subscapularis tendinopathy without full-thickness tear or retraction. The teres minor appears intact. AC joint: There is moderate AC joint hypertrophy without evidence of separation. There is a trace AC joint effusion. There is a type 3 acromion with impingement configuration. Labrum: There is a tear of the anterior superior labrum with a 1-2 o'clock position and biceps tendon anchor. Biceps tendon: There is moderate tendinopathy of the intra-articular portion of the biceps tendon. Effusion: There is a small joint effusion with fluid distention of the superior subscapularis recess. There is fluid in the subacromial subdeltoid bursa, with bursitis. MRI/Upper Ext Joint Only(Routine) IMPRESSION: There is a partial-thickness, 75% width tear of the articular surface of the supraspinatus footplate without retraction. There is severe distal infraspinatus tendinopathy without full-thickness tear. There is severe subscapularis tendinopathy without full-thickness tear or retraction. There is moderate AC joint hypertrophy without evidence of separation. There is a trace AC joint effusion. There is a type 3 acromion with impingement configuration. There is a tear of the anterior superior labrum with a 1-2 o'clock position and biceps tendon anchor. There is moderate tendinopathy of the intra-articular portion of the biceps tendon. There is a small joint effusion with fluid distention of the superior subscapularis recess. There is fluid in the subacromial subdeltoid bursa, with bursitis. Reading Location: [facility] Ochoa independently reviewed the imaging. Concur with radiologist report. Coding Level of Care Code Off vis,est,level 4 Diagnoses Right shoulder pain M25.511 Impingement of right shoulder M25.811 Right rotator cuff tear M75.101 Superior labrum wxvddjdy-kq-yycmbepeq (SLAP) tear of right shoulder S43.431A Assessment and Plan Assessment and Plan (1) Right shoulder pain: Status: Acute Plan: 39 yr F with R shoulder MRI showing SLAP tear, impingement with type 3 acromion, and a partial-thickness, 75% width tear of the articular surface of the supraspinatus footplate without retraction. The Discussed the pros and cons risks and benefits of the nonsurgical treatment versus going ahead with surgery. Typically smaller tears do better at 10 years follow-up with less progression of the tears and better function. The patient understands wished to proceed with right shoulder arthroscopy, subacromial decompression, rotator cuff repair, biceps tenodesis. Pros and cons risks and benefits were discussed with the patient including but not limited to infection, pain, stiffness, bleeding, damage to surrounding structures, neurovascular injury, recurrence or retear, failure or wear of hardware or fixation, instability, fracture, deep vein thrombosis and pulmonary embolism, anesthetic risks, , patient dissatisfaction, need for further surgery and other risks. Patient understood and wished to proceed with surgery, and signed the informed consent documentation. Patient counselled on non-operative and operative means of treating shoulder pain. Conservative options include but not limited to: 1. Rest and Activity Modification: Giving your shoulder time to heal by avoiding movements that cause pain can help. This may involve limiting overhead activities or heavy lifting. 2. Physical Therapy: A physical therapist can guide you through exercises that strengthen the muscles around the shoulder, improve flexibility, and reduce strain on the rotator cuff tendon. 3. Ice and Heat Therapy: Applying ice to the shoulder can help reduce swelling and pain, especially after activity. Heat can be helpful to relax tense muscles and improve blood flow before exercises. 4. Anti-Inflammatory Medications: Znsu-sjz-uldrpqa medications like ibuprofen or naproxen can help reduce pain and inflammation in the tendon. 5. Corticosteroid Injections: If the pain is more severe, a steroid injection can reduce inflammation in the shoulder and provide relief for a longer period. 6. Platelet-Rich Plasma (PRP) Injection: This treatment involves using your own blood to promote healing in the tendon. The plasma is rich in growth factors that can encourage tissue repair. 7. TENS (Transcutaneous Electrical Nerve Stimulation): This therapy uses a small electrical current to help manage pain and promote healing by stimulating nerves. (2) Impingement of right shoulder: Status: Acute (3) Right rotator cuff tear: Status: Acute (4) Superior labrum qzpvciba-dm-qtdpfnbhf (SLAP) tear of right shoulder: Status: Acute Clinical Quality Measures Falls Risk Screening/Assistive Devices Have you fallen in the past year?: No Ortho Exam General General: Yes no acute distress Neurologic: Yes alert and Yes oriented x3 Psychologic: Yes reasonable and appropriate Right Shoulder Skin/Wound: Yes CDI, No ecchymosis, No erythema and No swelling Testing: Positive Neer's, AROM-Forward Elevation 0-180 and AROM-External Rotation at side 0-60 [facility] Medical History Superior labrum rcqazfwb-qq-sfudszsza (SLAP) tear of right shoulder Right rotator cuff tear Wears contact lenses Fatty liver Migraine headache Gastric reflux Non-smoker History of edema Impingement of right shoulder Right shoulder pain Home Medications ?Medication ?Instructions ?Recorded ?Last Taken ?Type valacyclovir 1 gram tablet 1,000 mg PO DAILY 02/18/25 06/17/25 History pantoprazole 40 mg tablet,delayed 40 mg PO BID #60 tabs 02/20/25 06/17/25 Rx release Allergy/AdvReac Type Severity Reaction Status Date / Time No Known Allergies Allergy Verified 06/17/25 08:29 Family History Mother Cancer Grandmother Cancer Surgical History Hx of colonoscopy Social History Smoking Status: Never smoker alcohol intake: current alcohol intake frequency: a few times a week what type of physical activity do you participate in: other details: lyudmila
[2025-06-17] MEDS: Lactated Ringers 1,000 ML 15 ML IV (08:00)
[2025-06-17 08:13] LABS: Internal QC Validated? YES +Cl - CLEAR BKGD; Pregnancy, Urine Negative Negative; Record Kit Lot#,Urine Preg 0000980607
--- NOTE | 2025-06-17 08:55 | PRE.ANES_ITS ---
ASA Classification* ASA Classification ASA Classification: 2 Assessment & Plan Anesthesia* Anesthesia Assessment Anesthesia Assessment: Discussed sedation and/or anesthesia options, risks, benefits, and alternatives with patient/parents/legal guardian/POA. Questions invited. The patient/parents/legal guardian/POA seems to understand and agrees to proceed with anesthesia plan. Reviewed the physical assessment, medical history, allergy history and patient home medications list prior to surgery/procedure/anesthetic and documented any changes. Performed airway and anesthesia risk assessments. Anesthesia Type Anesthesia Type: General and Block History Source History Obtained from:: Patient, Chart and Significant Other (Mother present in the room) Anesthesia Focused Assessment* Temperature: 98.1 F Pulse Rate: 65 Blood Pressure: 114/78 Respiratory Rate: 18 Pulse Ox: 99 Oxygen Delivery Method: Room Air Airway Assessment Mouth opens: >3 cm Mallampati Score: II Teeth Condition: Intact Neck Range of motion (ROM): Full ROM Labs Anesthesia Preop lab: CBC WBC, (4.4-11.0) 8.5 K/mm3 01/01/25, 07:55 RBC, (4.2-5.4) 4.66 M/mm3 01/01/25, 07:55 Hgb, (12.0-15.0) 14.1 g/dL 01/01/25, 07:55 Hct, (37-47) 43.1 % 01/01/25, 07:55 Plt Count, (150-450) 246 K/mm3 01/01/25, 07:55 CHEMISTRY Potassium, (3.3-5.1) 4.0 mmol/L 01/01/25, 07:55 Sodium, (133-145) 138 mmol/L 01/01/25, 07:55 BUN, (4-19) 21 mg/dL H 01/01/25, 07:55 Creatinine, (0.70-1.20) 0.95 mg/dL 01/01/25, 07:55 Glucose, (70-99) 108 mg/dL H 01/01/25, 07:55 COAG PT, (11.7-14.9) 12.3 SECONDS 01/01/25, 07:55 Urine Test Negative Negative Today, 07:55 Pre-Assessment Diagnosis/Proposed Procedure Planned Operative Procedure(s): Right shoulder arthroscopy, subacromial decompression, rotator cuff repair, biceps tenodesis. 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 When Was Last Pacemaker Check QUESTION #4 FULL TEXT: You/Your Family Experience fever (hyperthermia) with Anesthesia Last Oral Intake Last Oral intake: Last Oral Intake NPO since 06:00 06/17/25 08:30 Meds taken in AM with sips of Yes 06/17/25 08:30 water? Meds patient instructed to take am of surgery PONV PONV - shipyard painter apprentice: PONV - shipyard painter apprentice Female Yes 06/03/25 13:09 HX of Motion Sickness No 06/03/25 13:09 HX of N/V After Surgery No 06/03/25 13:09 Non-Smoker Yes 06/03/25 13:09 Duration of Surgery greater Yes 06/03/25 13:09 than 60 minutes Number of Risk Factors 3 06/03/25 13:09 PONV Score Moderate Risk 06/03/25 13:09 Height & Weight Height & Weight: Anesthesia: Height & Weight Height 5 ft 10 in 06/17/25 08:30 Weight: 131 kg 06/17/25 08:30 Body Mass Index (BMI) 41.4 06/17/25 08:30 Respiratory Assessment Respiratory Assessment - shipyard painter apprentice: Respiratory Tract Infection Hx - shipyard painter apprentice Hx Respiratory Tract Infection No 06/03/25 13:09 STOP Sleep Apnea STOP Sleep Apnea - shipyard painter apprentice: STOP Sleep Apnea - shipyard painter apprentice Hx Hypertension No 06/03/25 13:09 Hx Sleep Apnea No 06/03/25 13:09 CPAP BIPAP Do you snore loudly (louder No 06/03/25 13:09 than talking or can be heard Do you often feel tired/ No 06/03/25 13:09 fatigued/ sleepy during daytime? Has anyone observed you stop No 06/03/25 13:09 breathing during sleep? STOP Results Negative 06/03/25 13:09 QUESTION #5 FULL TEXT : Do you snore loudly (louder than talking or can be heard through closed doors)? Tobacco Use History Tobacco Use History - shipyard painter apprentice: Tobacco Use History - shipyard painter apprentice Tobacco Use Smoking Status Never smoker 06/03/25 13:09 Hx Tobacco Use No 06/03/25 13:09 Years Smoking Packs Smoked per Day Smoking Cessation Date was within the last 15 years Hx Smoking Cessation Date Hx Smoking Cessation Counseling Hematologic Medial History Hematologic Hx - shipyard painter apprentice: Hematologic Medical Hx - compliance and control analyst Hx of Blood Transfusion No 06/03/25 13:09 Hx of Transfusion in last 3 No 06/03/25 13:09 Months Date of Last Transfusion (if within last 3 months) Ever experience any problems No 06/03/25 13:09 with transfusion(s)? Specify any problems Hx of Preganancy in last 3 No 06/03/25 13:09 Months Nurse Filling Out Transfusion DSCHRIBER 06/03/25 13:09 & Questions: Date: 06/03/25 06/03/25 13:09 Time: 13:10 06/03/25 13:09 Patient unable to answer at this time (ie. confused, unrespo /Reproduction History /Reproductive History - shipyard painter apprentice: /Reproductive Hx- shipyard painter apprentice Hx Now No 06/03/25 13:09 Gestational Age (in weeks): EDC: Hx Hx Para Hx Section SAB No 06/03/25 13:09 Active Medications Active Medications: Current Medications Generic Name Dose Route Start Last Admin Trade Name Freq PRN Reason Stop Dose Admin Cefazolin Sodium 3 gm/ Sodium 115 mls @ 200 mls/hr 06/17/25 10:00 Chloride IV 06/17/25 10:34 INTRAOP ONE Lactated Ringer's 1,000 mls @ 15 mls/hr 06/17/25 08:00 06/17/25 08:00 IV 15 mls/hr .Q48H COREY Administration PFSH Medical History Superior labrum jyvytyni-ld-irnjywtnj (SLAP) tear of right shoulder Right rotator cuff tear Wears contact lenses Fatty liver Migraine headache Gastric reflux Non-smoker History of edema Impingement of right shoulder Right shoulder pain Home Medications ?Medication ?Instructions ?Recorded ?Last Taken ?Type valacyclovir 1 gram tablet 1,000 mg PO DAILY 02/18/25 06/17/25 History pantoprazole 40 mg tablet,delayed 40 mg PO BID #60 tab s 02/20/25 06/17/25 Rx release Allergy/AdvReac Type Severity Reaction Status Date / Time No Known Allergies Allergy Verified 06/17/25 08:29 Family History Mother Cancer Grandmother Cancer Surgical History Hx of colonoscopy Social History Smoking Status: Never smoker alcohol intake: current alcohol intake frequency: a few times a week what type of physical activity do you participate in: other details: bowling Review of Systems (Anesthesia) ROS Narrative System reviewed and no additional complaints, except as documented.
[2025-06-17] MEDS: Midazolam 2 MG/2 ML Syringe IV (09:58)
[2025-06-17] MEDS: Cefazolin 1 GM/5 ML Vial 3 GM IV (10:20)
[2025-06-17] MEDS: Lidocaine 1% (5 ml sdv) 5 ML Vial 10 ML IV (10:25)
[2025-06-17] MEDS: Epinephrine (1 mg/ml) 1 MG/ML VIAL (11:00)
--- NOTE | 2025-06-17 11:59 | PCM.OPRPT ---
Problems Associated Problem List Diagnoses (1) Impingement of right shoulder: Procedures Musculoskeletal [id number]: Other Procedure See Report Operative Report (Standard) Operative Information Date of Procedure: 06/17/25 Pre-Operative Diagnosis: R shoulder impingement, RC tear, slap tear Post-Operative Diagnosis: same Surgery/Procedure Performed: R shoulder arthroscopy, SAD, RC repair, biceps tenodesis. route sales trainee: Yes Entertainment Lawyer: yolanda Tasks completed by sociology research assistant: Retracting Additional paraprofessional education assistant?: No Type of Anesthesia: Block,Regional and General RN Documented Start/Stop Times: Operation Date: 06/17/25 10:00 Case Time Into Pre-Op 06/17/25 07:58 Anesthesia Start 06/17/25 10:20 Into Room 06/17/25 10:20 Out of Pre-Op 06/17/25 10:20 Procedure Start 06/17/25 10:47 Procedure Start Time: 10:47 Procedure Stop Time: 12:13 Select all DRAINS/GRAFTS/IMPLANTS that apply: Implanted device Implanted device details: as detailed in report Estimated Blood Loss: 50 Specimen collected: No Description of surgery: Patient brought to the operating room theater. Placed supine on the table. General anesthesia induced. 3 g of IV Ancef administered prior to the start of the procedure. Patient transferred right side up lateral decubitus beanbag positioner. Axillary roll used. All bony prominences padded. SCDs on the legs. Upper extremity prepped and draped in the usual sterile fashion with chlorhexidine-based prep solution allowing over 3 minutes drying time prior to draping. 10 pounds of inline traction was used with the arm in 40 degrees of abduction. Preoperative timeout performed to confirm the site patient and the surgery. Began by inserting the arthroscope through a standard posterior arthroscopy portal. Made an accessory anterior portal through the rotator interval through inside-out spinal needle localization. No loose bodies cartilage on the glenoid and humeral head appeared normal. Near full thickness tear anterior aspect of supraspinatous tendon. There is a type II SLAP tear. I performed intra-articular biceps tenotomy to plan for later tenodesis. The subscapularis appeared normal as did the rest of the rotator cuff. Axillary recess entered no loose bodies bare area looks normal. I withdrew the arthroscope and inserted the arthroscope into the subacromial space. I made an accessory lateral portal. I cleared away a moderate amount of inflammatory bursitis all the way anteriorly posteriorly and laterally to the gutters. I probed the superior aspect of the rotator cuff tendon and identified the tear site, over 90 percent partial thickness. I did a subacromial decompression for 3 mm down to flat margins for slight downsloping of the anterolateral acromion. Completed the tear sharply using 11 blade. Canula laterally. Placed camera posterolateral. Debrided the GT at the tear site, and used arthrex power pick multiple trephinations to stimulate for healing. Passed fibertape inverted horizontal mattress suture repair for 2 tails, then fiberlink suture luggage tag stitch in the middle of those, to create locking link / chapito mamie rip stop suture configuration. THen rose these 3 tails laterally into a 4.75mm arthrex bio composite swivelock anchor. Cut sutures short, and used the additional knotless suture just posterior to the original repair sutures. Converted this and pulled tension, cut suture short. Good repair, solid, no dog ears, brought over lateral to completely cover tuberosity. Arthroscopy pictures taken and saved onto the system throughout the case. Arthroscope withdrawn. I then turned my attention to performing the biceps tenodesis. I made a small 1.5 inch incision centered over the proximal anteromedial aspect of the humerus overlying the long head of the biceps tendon. He carried the dissection down through skin and subcutaneous tissue achieved meticulous hemostasis. I incised the fascia in line with skin incision. Identified the long head of the biceps tendon and delivered this through the skin incision. I shorten up the biceps. I then used the Arthrex biceps tension tight locking button loop suture included suture. I wrapped this around in a luggage tag fashion and then passed this twice through the biceps tendon with the exiting suture from the deep side of the tendon. Shortened the tendon. I then identified the mid aspect of the proximal humerus at the subpectoral region. I drilled a bicortical hole. Irrigated away any bone dust. I was able to flip the biceps tension tight button inside the cortex. I then pulled on the free end of the suture to shorten up the suture and bring the biceps long head tendon onto the humeral shaft for an onlay repair technique. This was solid and well fixated on the suture limb cut short. All incisions were thoroughly irrigated meticulous hemostasis achieved. Subcutaneous tissue closed with 2-0 Vicryl suture and skin with 3-0 Monocryl. Skin cleaned with wet and dry dressing followed application of Steri-Strips Adaptic 4 x 4 gauze ABD dressing cloth tape with an abduction pillow sling for the upper extremity. Patient woken up from general anesthetic transferred off the operating table taken to postanesthetic care unit in stable condition. All sponge needle and instrument counts were correct no complications plan for the patient discharged home according to day surgery criteria follow-up in the office within 2 weeks time. CPT 99952, 18207, 58178 Surgical Findings: as above Complications Complications: No Admit VTE Documentation VTE Present on Admission: No VTE Mechan Device Prophylaxis: SCD's VTE Pharm Prophylaxis ordered?: No Reason prophylaxis not ordered: Treatment Not Indicated
--- NOTE | 2025-06-17 12:07 | EX.PCM.DISCH ---
Discharge Instructions Diet Discharge Diet: No restrictions Activity Lifting Restrictions: no lifting over 1 pound, ok to remove sling at rest Additional Activity Instructions:: pendulums, hand wrist elbow rom 4x/day Dressing / Incision Call your doctor if your incision/area has: Continuous Slow Oozing, Sudden Increased Bleeding, Increased Pain/ Swelling, Increased Redness, Foul Smelling Discharge and Swelling at the incision site Call your doctor if you observe: Fever of 101 or Higher, Coldness, Increased Pain and Numbness or Tingling Remove Dressing in: leave in place till F/U Cleanse incision/area with: Do not get Incision Wet Additional Dressing/Incision Instructions:: ok to change dressing if you need, keep incisions covered Follow Up Care Please Follow Up With: Victorino Coleman MD When: within 2 weeks Test Results: Test results from this visit will be discussed in further detail at your follow-up appointment, if applicable. Discharge Plan Admission Attending Provider: Victorino Coleman Primary Care Provider: Cleo Joseph Instructions Patient Instructions: Pendulum (Flexibility) Print Language: Macedonian Discharge Orders/Prescriptions Prescriptions: New oxycodone-acetaminophen [Endocet] 5-325 mg tablet 1 tab PO Q4H MDD 6 PRN (Reason: pain) 5 Days Qty: 30 0RF No Action valacyclovir 1 gram tablet 1,000 mg PO DAILY pantoprazole 40 mg tablet,delayed release (DR/EC) 40 mg PO BID Qty: 60 3RF Referrals / Follow Up: Cleo Joseph DO [Primary Care Provider, Internal Medicine] Victorino Coleman MD [Med Staff - Active Staff, Orthopedics] Disposition Disposition (needs filled in before D/C Order can be placed): Home, Self Care
--- NOTE | 2025-06-17 12:23 | PCM.POST.ANE ---
Anesthesia: Postop Eval I Current Vital Signs Temperature: 97 F Pulse Rate: 82 Blood Pressure: 99/63 Respiratory Rate: 16 Pulse Ox: 97 Assessment Airway patent: Yes Spontaneous unlabored respirations: Yes nausea: No Vomiting: No Anesthesia Complication: No Fluid Hydration Crystalloid volume administer (ml): 1,200 Total IV fluid infused: 1,200 Progress Note Anesthesia document: Postop Eval 1 completed: Yes
[2025-06-17] MEDS: HYDROcodone Bitartrate/Apap 5/325 Tablet PO (13:14)
--- NOTE | 2025-06-17 13:56 | POSTOPAN2_ITS ---
Anesthesia Postop Eval I Sum Postop Eval Completion status Anesthesia document: Postop Eval 1 completed: Yes Anesthesia Postop Eval I Summary Anesthesia Postop Eval I Summary: Anesthesia Postop Eval I: Assessment Summary Airway patent Yes 06/17/25 12:24 [email or web address] [email or web address] Spontaneous unlabored Yes 06/17/25 12:24 WELDER [email or web address] respirations Mental status nausea No 06/17/25 12:24 WELDER [email or web address] Vomiting No 06/17/25 12:24 WELDER [email or web address] Anesthesia Postop Eval I: Fluid Summary Crystalloid volume administer 1,200 06/17/25 12:24 WELDER [email or web address] (ml) Colloids volume administered ( ml) Blood Product volume administered (ml) Total IV fluid infused 1,200 06/17/25 12:24 WELDER [email or web address] Anesthesia Postop Eval I: Summary Notes Anesthesia Complication No 06/17/25 12:24 WELDER [email or web address] Anesthesia Complication Comment: Post-operative progress note Anesthesia: Postop Eval II Evaluation Mental status: Awake and Calm Pain Level: 1 nausea: No Vomiting: No Complications Anesthesia Complication: No
--- NOTE | 2025-06-17 13:56 | PCM.POSTANE2 ---
Anesthesia Postop Eval I Sum Postop Eval Completion status Anesthesia document: Postop Eval 1 completed: Yes Anesthesia Postop Eval I Summary Anesthesia Postop Eval I Summary: Anesthesia Postop Eval I: Assessment Summary Airway patent Yes 06/17/25 12:24 RESPIRATORY CARE ASSISTANT.[email or web address] Spontaneous unlabored Yes 06/17/25 12:24 RESPIRATORY CARE ASSISTANT.TNES respirations Mental status nausea No 06/17/25 12:24 RESPIRATORY CARE ASSISTANT.TNES Vomiting No 06/17/25 12:24 RESPIRATORY CARE ASSISTANT.TNES Anesthesia Postop Eval I: Fluid Summary Crystalloid volume administer 1,200 06/17/25 12:24 RESPIRATORY CARE ASSISTANT.TNES (ml) Colloids volume administered ( ml) Blood Product volume administered (ml) Total IV fluid infused 1,200 06/17/25 12:24 RESPIRATORY CARE ASSISTANT.TNES Anesthesia Postop Eval I: Summary Notes Anesthesia Complication No 06/17/25 12:24 RESPIRATORY CARE ASSISTANT.TNES Anesthesia Complication Comment: Post-operative progress note Anesthesia: Postop Eval II Evaluation Mental status: Awake and Calm Pain Level: 1 nausea: No Vomiting: No Complications Anesthesia Complication: No
== END 2025-06-17 13:56 | disposition home or self-care (01) ==
LOC: SDC 07:48 → AC 07:49
PROVIDERS: Anesthesiology; PCP Internal Medicine; Referring Provider Orthopaedic Surgery Sports Medicine; Visit Provider Orthopaedic Surgery Sports Medicine
PROC: (CPT 29805; principal; 2025-06-17 09:40)
DX: M75.101 Unspecified rotator cuff tear or rupture of right shoulder, not specified as traumatic (principal); S43.431A Superior glenoid labrum lesion of right shoulder, initial encounter; M75.41 Impingement syndrome of right shoulder; K21.9 Gastro-esophageal reflux disease without esophagitis; Z79.899 Other long term (current) drug therapy; X58.XXXA Exposure to other specified factors, initial encounter
CPT/HCPCS: 29827; 29826; 23430; 64450; 01630; 81025; C1713; J2405